=== PATIENT | male | born 1950 | race Caucasian/White ===

== ENCOUNTER 2019-06-21 18:18 | Inpatient (IN) | payer MEDICARE, OTHER ==
[2019-06-21] MEDS ORDERED: Sodium Chloride 0.9% 1,000 ML IV ONE ×3 (19:44→20:36)
--- NOTE | 2019-06-21 19:57 | EDM.PDOC ---
ED HPI GENERAL MEDICAL PROBLEM - General Chief Complaint: Lower Extremity Injury/Pain Stated Complaint: LEFT LEG PAIN Time Seen by Provider: 06/21/19 19:30 Source of Information: Reports: Patient History Limitations: Reports: No Limitations - History of Present Illness INITIAL COMMENTS - FREE TEXT/NARRATIVE: Patient is a 69-year-old male with past medical history of obesity and diabetes presenting with chief complaint of left lower extremity pain and redness. Patient notes that he started noticing the redness and pain to the left lateral thigh 2 days ago. Patient states that it feels like a soreness. Patient states he took off his compression stockings today and noticed over the span of several hours redness started spreading to the distal part of his extremity as well. Patient denies feeling fevers, chills, fatigue, nausea, vomiting. Patient reports blood sugar being under control at home. Pmhx: Noted in the HPI in chart. Pshx: None Family Hx: noncontributory Smoking history? no Etoh use? none Drug use? none In addition to that documented in the HPI above, the additional ROS was obtained : Constitutional: Denies fevers or chills Eyes: Denies vision changes ENMT: Denies sore throat CV: Denies chest pain Resp: Denies SOB GI: Denies vomiting or diarrhea : Denies painful urination MSK: Denies recent trauma Skin: Per HPI Neuro: Denies new numbness or tingling or weakness Endocrine: Denies unexpected weight loss Heme: Denies bleeding disorders I have reviewed the triage vital signs Const: Well nourished, well developed, appears stated age Eyes: PERRL, no conjunctival injection HENT: NCAT, Neck supple without meningismus CV: RRR, Warm, well-perfused extremities RESP: CTAB, Unlabored respiratory effort GI: soft, non-tender, non-distended, no masses MSK: No gross deformities appreciated Skin: Patient demonstrates warmth, erythema to the lateral left thigh extending down to the knee. Patient has circumferential warmth and erythema to the distal lower extremity. No evidence of crepitus or fluctuance. Neuro: Alert, director of hemophilia II-XII grossly intact. Sensation and motor function of extremities grossly intact. Patient is motor intact. Psych: Appropriate mood and affect Assessment and plan: Patient is 69-year-old male presenting with left lower extremity redness and pain. Patient is clinical evidence of a cellulitis which is quite extensive however does not appear to involve the groin region. Patient's labs were significant for concerns about possible sepsis. Sepsis protocol was followed with 30 cc/kg. Sepsis reevaluation demonstrates improvement of tachycardia. Repeat lactic acid was downtrending to 2.1. Patient started on broad-spectrum antibiotics. Patient's labs also noted for kidney dysfunction whether this is acute or chronic is unclear at this time and he will require further trending. CT scan was performed to rule out any evidence of necrotizing fasciitis given the extent of the cellulitis. Patient's CT scan was negative for necrotizing fasciitis but demonstrated acute extensive cellulitis. Given the patient's age , concerns about sepsis and risk factors the patient be placed in observation for further evaluation and IV antibiotics. These infections particularly in diabetics can progress to necrotizing fasciitis and this patient will require close observation to make sure that this is not the case. Left Leg Pain Score (Numeric/FACES): 5 - Related Data Allergies Allergy/AdvReac Type Severity Reaction Status Date / Time No Known Allergies Allergy Verified 06/21/19 19:22 Past Medical History Cardiovascular History: Reports: High Cholesterol, Hypertension Endocrine/Metabolic History: Reports: Diabetes, Type II Oncologic (Cancer) History: Reports: Basal Cell Carcinoma Other Oncologic History: Removal on left side of face a couple weeks ago. - Infectious Disease History Infectious Disease History: Reports: Measles, Mumps, Shingles - Past Surgical History HEENT Surgical History: Reports: Eye Surgery Other HEENT Surgeries/Procedures: Right removal of eye, has glass eye. Social & Family History - Tobacco Use Smoking Status *Q: Never Smoker - Caffeine Use Caffeine Use: Reports: Coffee - Recreational Drug Use Recreational Drug Use: No Review of Systems - Review of Systems Review Of Systems: See Below ED EXAM, GENERAL - Physical Exam Exam: See Below Course - Vital Signs Last Recorded V/S: Last Vital Signs Temp 36.9 C 06/21/19 22:02 Pulse 84 06/21/19 23:29 Resp 18 06/21/19 23:29 BP 129/59 L 06/21/19 23:29 Pulse Ox 95 06/21/19 23:29 - Orders/Labs/Meds Orders: Active Orders 24 hr Category Date Time Status POC Glucose [Blood Glucose Check, Bedside] [RC] ONETIME Care 06/21/19 19:53 Active CULTURE BLOOD [BC] Stat Lab 06/21/19 20:00 Received CULTURE BLOOD [BC] Stat Lab 06/21/19 20:25 Received Blood Culture x2 Reflex Set [OM.PC] Stat Oth 06/21/19 19:45 Ordered Labs: Laboratory Tests 06/21/19 06/21/19 06/21/19 Range/Units 20:00 20:00 20:00 WBC 14.97 H (4.0-11.0) K/uL RBC 5.19 (4.50-5.90) M/uL Hgb 13.3 (13.0-17.0) g/dL Hct 42.5 (38.0-50.0) % MCV 81.9 (80.0-98.0) fL MCH 25.6 L (27.0-32.0) pg MCHC 31.3 (31.0-37.0) g/dL RDW Std Deviation 51.1 (28.0-62.0) fl RDW Coeff of Letty 17 H (11.0-15.0) % Plt Count 229 (150-400) K/uL MPV 9.30 (7.40-12.00) fL Neut % (Auto) 88.0 H (48.0-80.0) % Lymph % (Auto) 4.9 L (16.0-40.0) % [place] % (Auto) 6.9 (0.0-15.0) % Eos % (Auto) 0.0 (0.0-7.0) % Baso % (Auto) 0.2 (0.0-1.5) % Neut # (Auto) 13.2 H (1.4-5.7) K/uL Lymph # (Auto) 0.7 (0.6-2.4) K/uL [place] # (Auto) 1.0 H (0.0-0.8) K/uL Eos # (Auto) 0.0 (0.0-0.7) K/uL Baso # (Auto) 0.0 (0.0-0.1) K/uL Nucleated RBC % 0.0 /100WBC Nucleated RBCs # 0 K/uL ESR (0-19) mm/hr VBG pH 7.41 (7.31-7.41) VBG pCO2 45 (35-45) mmHG VBG pO2 29 L (30-40) mmHG VBG HCO3 28 (22-30) mEq/L VBG Total CO2 26 L (41-51) mmol/L VBG Base Excess 3.0 (-3.0-3.0) Lactate 2.6 H* (0.20-2.00) mmol/L Sodium (136-148) mmol/L Potassium (3.5-5.1) mmol/L Chloride (98-107) mmol/L Carbon Dioxide (21.0-32.0) mmol/L BUN (7.0-18.0) mg/dL Creatinine (0.8-1.3) mg/dL Est Cr Clr Drug Dosing mL/min Estimated GFR (MDRD) ml/min Glucose (74-106) mg/dL POC Glucose (60-110) mg/dL Calcium (8.5-10.1) mg/dL Total Bilirubin (0.2-1.0) mg/dL AST (15-37) IU/L ALT (14-63) IU/L Alkaline Phosphatase (46-116) U/L C-Reactive Protein (0.00-0.90) mg/dL Total Protein (6.4-8.2) g/dL Albumin (3.4-5.0) g/dL Globulin (2.6-4.0) g/dL Albumin/Globulin Ratio (0.9-1.6) 06/21/19 06/21/19 06/21/19 Range/Units 20:00 20:00 20:00 WBC (4.0-11.0) K/uL RBC (4.50-5.90) M/uL Hgb (13.0-17.0) g/dL Hct (38.0-50.0) % MCV (80.0-98.0) fL MCH (27.0-32.0) pg MCHC (31.0-37.0) g/dL RDW Std Deviation (28.0-62.0) fl RDW Coeff of Letty (11.0-15.0) % Plt Count (150-400) K/uL MPV (7.40-12.00) fL Neut % (Auto) (48.0-80.0) % Lymph % (Auto) (16.0-40.0) % [place] % (Auto) (0.0-15.0) % Eos % (Auto) (0.0-7.0) % Baso % (Auto) (0.0-1.5) % Neut # (Auto) (1.4-5.7) K/uL Lymph # (Auto) (0.6-2.4) K/uL [place] # (Auto) (0.0-0.8) K/uL Eos # (Auto) (0.0-0.7) K/uL Baso # (Auto) (0.0-0.1) K/uL Nucleated RBC % /100WBC Nucleated RBCs # K/uL ESR 52 H (0-19) mm/hr VBG pH (7.31-7.41) VBG pCO2 (35-45) mmHG VBG pO2 (30-40) mmHG VBG HCO3 (22-30) mEq/L VBG Total CO2 (41-51) mmol/L VBG Base Excess (-3.0-3.0) Lactate (0.20-2.00) mmol/L Sodium 138 (136-148) mmol/L Potassium 4.5 (3.5-5.1) mmol/L Chloride 101 (98-107) mmol/L Carbon Dioxide 26.7 (21.0-32.0) mmol/L BUN 39 H (7.0-18.0) mg/dL Creatinine 1.8 H (0.8-1.3) mg/dL Est Cr Clr Drug Dosing 37.64 mL/min Estimated GFR (MDRD) 37.4 ml/min Glucose 158 H (74-106) mg/dL POC Glucose (60-110) mg/dL Calcium 9.3 (8.5-10.1) mg/dL Total Bilirubin 0.9 (0.2-1.0) mg/dL AST 19 (15-37) IU/L ALT 30 (14-63) IU/L Alkaline Phosphatase 89 (46-116) U/L C-Reactive Protein 43.20 H (0.00-0.90) mg/dL Total Protein 7.2 (6.4-8.2) g/dL Albumin 2.8 L (3.4-5.0) g/dL Globulin 4.4 H (2.6-4.0) g/dL Albumin/Globulin Ratio 0.6 L (0.9-1.6) 06/21/19 06/21/19 Range/Units 20:14 22:48 WBC (4.0-11.0) K/uL RBC (4.50-5.90) M/uL Hgb (13.0-17.0) g/dL Hct (38.0-50.0) % MCV (80.0-98.0) fL MCH (27.0-32.0) pg MCHC (31.0-37.0) g/dL RDW Std Deviation (28.0-62.0) fl RDW Coeff of Letty (11.0-15.0) % Plt Count (150-400) K/uL MPV (7.40-12.00) fL Neut % (Auto) (48.0-80.0) % Lymph % (Auto) (16.0-40.0) % [place] % (Auto) (0.0-15.0) % Eos % (Auto) (0.0-7.0) % Baso % (Auto) (0.0-1.5) % Neut # (Auto) (1.4-5.7) K/uL Lymph # (Auto) (0.6-2.4) K/uL [place] # (Auto) (0.0-0.8) K/uL Eos # (Auto) (0.0-0.7) K/uL Baso # (Auto) (0.0-0.1) K/uL Nucleated RBC % /100WBC Nucleated RBCs # K/uL ESR (0-19) mm/hr VBG pH (7.31-7.41) VBG pCO2 (35-45) mmHG VBG pO2 (30-40) mmHG VBG HCO3 (22-30) mEq/L VBG Total CO2 (41-51) mmol/L VBG Base Excess (-3.0-3.0) Lactate 2.1 H* (0.20-2.00) mmol/L Sodium (136-148) mmol/L Potassium (3.5-5.1) mmol/L Chloride (98-107) mmol/L Carbon Dioxide (21.0-32.0) mmol/L BUN (7.0-18.0) mg/dL Creatinine (0.8-1.3) mg/dL Est Cr Clr Drug Dosing mL/min Estimated GFR (MDRD) ml/min Glucose (74-106) mg/dL POC Glucose 168 H (60-110) mg/dL Calcium (8.5-10.1) mg/dL Total Bilirubin (0.2-1.0) mg/dL AST (15-37) IU/L ALT (14-63) IU/L Alkaline Phosphatase (46-116) U/L C-Reactive Protein (0.00-0.90) mg/dL Total Protein (6.4-8.2) g/dL Albumin (3.4-5.0) g/dL Globulin (2.6-4.0) g/dL Albumin/Globulin Ratio (0.9-1.6) Meds: Medications Discontinued Medications Generic Name Dose Route Start Last Admin Trade Name Freq PRN Reason Stop Dose Admin Sodium Chloride 1,000 mls @ 1,000 mls/hr 06/21/19 19:44 06/21/19 20:10 Normal Saline IV 06/21/19 20:43 1,000 mls/hr .Bolus ONE Administration Piperacillin Sod/Tazobactam 100 mls @ 100 mls/hr 06/21/19 20:34 06/21/19 20: 46 Sod 4.5 gm/ Sodium Chloride IV 06/21/19 21:33 100 mls/hr ONETIME ONE Administration Sodium Chloride 1,000 mls @ 1,000 mls/hr 06/21/19 20:35 06/21/19 20:54 Normal Saline IV 06/21/19 21:34 1,000 mls/hr .Bolus ONE Administration Sodium Chloride 1,000 mls @ 1,000 mls/hr 06/21/19 20:36 06/21/19 22:07 Normal Saline IV 06/21/19 21:35 1,000 mls/hr .Bolus ONE Administration Vancomycin HCl 1.25 gm/ Sodium 250 mls @ 167 mls/hr 06/21/19 22:40 06/21/19 23:31 Chloride IV 06/22/19 00:09 167 mls/hr ONETIME ONE Administration Departure - Departure Time of Disposition: 00:22 Disposition: Refer to Observation Clinical Impression: Cellulitis and abscess of left leg - Discharge Information Sepsis Event Note - Evaluation Sepsis Screening Result: No Definite Risk - Focused Exam Vital Signs: Vital Signs Temp Pulse Resp BP Pulse Ox 06/21/19 23:29 84 18 129/59 L 95 06/21/19 22:02 36.9 C 92 18 120/50 L 94 L 06/21/19 20:54 93 16 125/44 L 95 06/21/19 19:23 36.6 C 108 H 16 100/56 L 92 L Date Exam was Performed: 06/22/19 Time Exam was Performed: 00:21 - My Orders Last 24 Hours: My Active Orders 06/21/19 19:45 Blood Culture x2 Reflex Set [OM.PC] Stat 06/21/19 19:53 POC Glucose [Blood Glucose Check, Bedside] [RC] ONETIME 06/21/19 20:00 CULTURE BLOOD [BC] Stat 06/21/19 20:25 CULTURE BLOOD [BC] Stat - Assessment/Plan Last 24 Hours: My Active Orders 06/21/19 19:45 Blood Culture x2 Reflex Set [OM.PC] Stat 06/21/19 19:53 POC Glucose [Blood Glucose Check, Bedside] [RC] ONETIME 06/21/19 20:00 CULTURE BLOOD [BC] Stat 06/21/19 20:25 CULTURE BLOOD [BC] Stat
[2019-06-21] MEDS ORDERED: Piperacillin/Tazobactam 4.5 GM in Sodium Chloride 0.9% 100 ML IV ONE (20:34)
[2019-06-21 20:48] LABS: CARBON DIOXIDE,CO2 26.7 mmol/L (21.0-32.0); POTASSIUM,K 4.5 mmol/L (3.5-5.1)
--- NOTE | 2019-06-21 23:31 | CT ---
HISTORY: Pain swelling and redness. TECHNIQUE: CT left leg without contrast. [id number] from iliac crests through the feet. COMPARISON: None. FINDINGS: Moderate infiltration of subcutaneous fat in the proximal lower leg. No fluid collection within the limits of noncontrast CT. Mild signal T is fat infiltration in the left thigh and elsewhere in the lower leg. No soft tissue gas. No fluid in the deep fascial planes. Mild fatty infiltration of portions of the left leg musculature. Mild atherosclerotic calcifications. Advanced osteoarthritis of the left knee. No left knee joint effusion. Mild osteoarthritis of the left hip. Pubic symphysis degenerative changes. Degenerative changes of the lower lumbar spine and sacroiliac joints. No fracture. No erosions. Mild subcutaneous fat infiltration in the right lower leg. Osteoarthritis of the right knee. IMPRESSION: 1. Subcutaneous fat infiltration in the left lower extremity, greatest in the proximal lower leg, may be from edema or cellulitis. No fluid collection within the limits of noncontrast CT. 2. No soft tissue gas. 3. No erosions or other acute bony abnormality. 4. Osteoarthritis of the left knee and left hip. Please note that all CT scans at this facility use dose modulation, iterative reconstruction, and/or weight-based dosing when appropriate to reduce radiation dose to as low as reasonably achievable. Dictated by Qasim Mensah MD @ Jun 23 2019 8:32AM Signed by Dr. Qasim Mensah @ Jun 23 2019 8:38AM
[2019-06-22] MEDS: Insulin Aspart 100 Units/ML 3 ML Pen SUBCUT SCH ×3 (07:30→16:35)
[2019-06-22] MEDS ORDERED: atorvaSTATin 20 MG Tab PO SCH ×2 (09:00)
--- NOTE | 2019-06-22 09:03 | PCM.HP.2 ---
H&P History of Present Illness - General Date of Service: 06/22/19 Admit Problem/Dx: Admission Diagnosis/Problem Admission Diagnosis/Problem Cellulitis of left lower leg - History of Present Illness Initial Comments - Free Text/Narative: 69 yo male with pmh of DM, HTN, and obesity who presents with two day history of redness and swelling of the left lower leg. He stated he noticed it after he bumped his hip and noticed it was starting to get tight. The redness has now spread down to his calf. He denies any pain, shortness of breath, or fevers. In the ED he had a CT scan of the leg which noted subcutaneous soft tissue edema but no deep tissue involvement. WBC was 14,900 and CReatinine was 1.8. PAtient does not know what his baseline creatinine was but was told once it was iffy once but fine on recheck. Left Leg Pain Score (Numeric/FACES): 0 - Related Data Allergies/Adverse Reactions: Allergies Allergy/AdvReac Type Severity Reaction Status Date / Time No Known Allergies Allergy Verified 06/22/19 06:25 Home Medications: Home Meds Ferrous Sulfate 325 mg PO DAILY 06/22/19 [History] Lisinopril/Hydrochlorothiazide [Lisinopril-Hctz 20-25 mg Tab] 20 - 25 mg PO DAILY 06/22/19 [History] Naproxen Sodium 220 mg PO Q8HR PRN 06/22/19 [History] Saw/Py/Net/Pumpk/Beta/Ly/Zn/Cu [Prostate Control Softgel] 1 cap PO DAILY [History] atorvaSTATin [Lipitor] 20 mg PO DAILY 06/22/19 [History] metFORMIN [Glucophage] 1,000 mg PO BIDMEALS 06/22/19 [History] Past Medical History Cardiovascular History: Reports: High Cholesterol, Hypertension Endocrine/Metabolic History: Reports: Diabetes, Type II Oncologic (Cancer) History: Reports: Basal Cell Carcinoma Other Oncologic History: Removal on left side of face a couple weeks ago. - Infectious Disease History Infectious Disease History: Reports: Measles, Mumps, Shingles - Past Surgical History HEENT Surgical History: Reports: Eye Surgery Other HEENT Surgeries/Procedures: Right removal of eye, has glass eye. Social & Family History - Tobacco Use Smoking Status *Q: Never Smoker - Caffeine Use Caffeine Use: Reports: Coffee - Recreational Drug Use Recreational Drug Use: No H&P Review of Systems - Review of Systems: Review Of Systems: Comprehensive ROS is negative, except as noted in HPI. Exam - Exam Exam: See Below - Vital Signs Vital Signs: Last Vital Signs Temp 37.8 C 06/22/19 04:01 Pulse 90 06/22/19 04:01 Resp 18 06/22/19 04:01 BP 119/56 L 06/22/19 04:01 Pulse Ox 94 L 06/22/19 04:01 Weight: 147.735 kg - Exam General: Alert, Oriented HEENT: Mucosa Moist & [place]ck: Supple, Trachea Midline Lungs: Clear to Auscultation, Normal Respiratory Effort Cardiovascular: Regular Rate, Regular Rhythm GI/Abdominal Exam: Soft, Non-Tender, No Distention Extremities: Other (mild edema of left lower leg extending to mid thigh. Mild Erythema of lateral upper thigh extending circumfrential around the leg down to calf. Erythema spares patelar area, no noticable knee effusion ) - Patient Data Lab Results Last 24 hrs: Laboratory Results - last 24 hr 06/21/19 06/21/19 06/21/19 Range/Units 20:00 20:00 20:00 WBC 14.97 H (4.0-11.0) K/uL RBC 5.19 (4.50-5.90) M/uL Hgb 13.3 (13.0-17.0) g/dL Hct 42.5 (38.0-50.0) % MCV 81.9 (80.0-98.0) fL MCH 25.6 L (27.0-32.0) pg MCHC 31.3 (31.0-37.0) g/dL RDW Std Deviation 51.1 (28.0-62.0) fl RDW Coeff of Letty 17 H (11.0-15.0) % Plt Count 229 (150-400) K/uL MPV 9.30 (7.40-12.00) fL Neut % (Auto) 88.0 H (48.0-80.0) % Lymph % (Auto) 4.9 L (16.0-40.0) % Wallace % (Auto) 6.9 (0.0-15.0) % Eos % (Auto) 0.0 (0.0-7.0) % Baso % (Auto) 0.2 (0.0-1.5) % Neut # (Auto) 13.2 H (1.4-5.7) K/uL Lymph # (Auto) 0.7 (0.6-2.4) K/uL Wallace # (Auto) 1.0 H (0.0-0.8) K/uL Eos # (Auto) 0.0 (0.0-0.7) K/uL Baso # (Auto) 0.0 (0.0-0.1) K/uL Nucleated RBC % 0.0 /100WBC Nucleated RBCs # 0 K/uL ESR (0-19) mm/hr VBG pH 7.41 (7.31-7.41) VBG pCO2 45 (35-45) mmHG VBG pO2 29 L (30-40) mmHG VBG HCO3 28 (22-30) mEq/L VBG Total CO2 26 L (41-51) mmol/L VBG Base Excess 3.0 (-3.0-3.0) Lactate 2.6 H* (0.20-2.00) mmol/L Sodium (136-148) mmol/L Potassium (3.5-5.1) mmol/L Chloride (98-107) mmol/L Carbon Dioxide (21.0-32.0) mmol/L BUN (7.0-18.0) mg/dL Creatinine (0.8-1.3) mg/dL Est Cr Clr Drug Dosing mL/min Estimated GFR (MDRD) ml/min Glucose (74-106) mg/dL POC Glucose (60-110) mg/dL Calcium (8.5-10.1) mg/dL Total Bilirubin (0.2-1.0) mg/dL AST (15-37) IU/L ALT (14-63) IU/L Alkaline Phosphatase (46-116) U/L C-Reactive Protein (0.00-0.90) mg/dL Total Protein (6.4-8.2) g/dL Albumin (3.4-5.0) g/dL Globulin (2.6-4.0) g/dL Albumin/Globulin Ratio (0.9-1.6) 06/21/19 06/21/19 06/21/19 Range/Units 20:00 20:00 20:00 WBC (4.0-11.0) K/uL RBC (4.50-5.90) M/uL Hgb (13.0-17.0) g/dL Hct (38.0-50.0) % MCV (80.0-98.0) fL MCH (27.0-32.0) pg MCHC (31.0-37.0) g/dL RDW Std Deviation (28.0-62.0) fl RDW Coeff of Letty (11.0-15.0) % Plt Count (150-400) K/uL MPV (7.40-12.00) fL Neut % (Auto) (48.0-80.0) % Lymph % (Auto) (16.0-40.0) % Wallace % (Auto) (0.0-15.0) % Eos % (Auto) (0.0-7.0) % Baso % (Auto) (0.0-1.5) % Neut # (Auto) (1.4-5.7) K/uL Lymph # (Auto) (0.6-2.4) K/uL Wallace # (Auto) (0.0-0.8) K/uL Eos # (Auto) (0.0-0.7) K/uL Baso # (Auto) (0.0-0.1) K/uL Nucleated RBC % /100WBC Nucleated RBCs # K/uL ESR 52 H (0-19) mm/hr VBG pH (7.31-7.41) VBG pCO2 (35-45) mmHG VBG pO2 (30-40) mmHG VBG HCO3 (22-30) mEq/L VBG Total CO2 (41-51) mmol/L VBG Base Excess (-3.0-3.0) Lactate (0.20-2.00) mmol/L Sodium 138 (136-148) mmol/L Potassium 4.5 (3.5-5.1) mmol/L Chloride 101 (98-107) mmol/L Carbon Dioxide 26.7 (21.0-32.0) mmol/L BUN 39 H (7.0-18.0) mg/dL Creatinine 1.8 H (0.8-1.3) mg/dL Est Cr Clr Drug Dosing 37.64 mL/min Estimated GFR (MDRD) 37.4 ml/min Glucose 158 H (74-106) mg/dL POC Glucose (60-110) mg/dL Calcium 9.3 (8.5-10.1) mg/dL Total Bilirubin 0.9 (0.2-1.0) mg/dL AST 19 (15-37) IU/L ALT 30 (14-63) IU/L Alkaline Phosphatase 89 (46-116) U/L C-Reactive Protein 43.20 H (0.00-0.90) mg/dL Total Protein 7.2 (6.4-8.2) g/dL Albumin 2.8 L (3.4-5.0) g/dL Globulin 4.4 H (2.6-4.0) g/dL Albumin/Globulin Ratio 0.6 L (0.9-1.6) 06/21/19 06/21/19 06/22/19 Range/Units 20:14 22:48 04:53 WBC (4.0-11.0) K/uL RBC (4.50-5.90) M/uL Hgb (13.0-17.0) g/dL Hct (38.0-50.0) % MCV (80.0-98.0) fL MCH (27.0-32.0) pg MCHC (31.0-37.0) g/dL RDW Std Deviation (28.0-62.0) fl RDW Coeff of Letty (11.0-15.0) % Plt Count (150-400) K/uL MPV (7.40-12.00) fL Neut % (Auto) (48.0-80.0) % Lymph % (Auto) (16.0-40.0) % Wallace % (Auto) (0.0-15.0) % Eos % (Auto) (0.0-7.0) % Baso % (Auto) (0.0-1.5) % Neut # (Auto) (1.4-5.7) K/uL Lymph # (Auto) (0.6-2.4) K/uL Wallace # (Auto) (0.0-0.8) K/uL Eos # (Auto) (0.0-0.7) K/uL Baso # (Auto) (0.0-0.1) K/uL Nucleated RBC % /100WBC Nucleated RBCs # K/uL ESR (0-19) mm/hr VBG pH (7.31-7.41) VBG pCO2 (35-45) mmHG VBG pO2 (30-40) mmHG VBG HCO3 (22-30) mEq/L VBG Total CO2 (41-51) mmol/L VBG Base Excess (-3.0-3.0) Lactate 2.1 H* 1.6 (0.20-2.00) mmol/L Sodium (136-148) mmol/L Potassium (3.5-5.1) mmol/L Chloride (98-107) mmol/L Carbon Dioxide (21.0-32.0) mmol/L BUN (7.0-18.0) mg/dL Creatinine (0.8-1.3) mg/dL Est Cr Clr Drug Dosing mL/min Estimated GFR (MDRD) ml/min Glucose (74-106) mg/dL POC Glucose 168 H (60-110) mg/dL Calcium (8.5-10.1) mg/dL Total Bilirubin (0.2-1.0) mg/dL AST (15-37) IU/L ALT (14-63) IU/L Alkaline Phosphatase (46-116) U/L C-Reactive Protein (0.00-0.90) mg/dL Total Protein (6.4-8.2) g/dL Albumin (3.4-5.0) g/dL Globulin (2.6-4.0) g/dL Albumin/Globulin Ratio (0.9-1.6) 06/22/19 Range/Units 06:53 WBC (4.0-11.0) K/uL RBC (4.50-5.90) M/uL Hgb (13.0-17.0) g/dL Hct (38.0-50.0) % MCV (80.0-98.0) fL MCH (27.0-32.0) pg MCHC (31.0-37.0) g/dL RDW Std Deviation (28.0-62.0) fl RDW Coeff of Letty (11.0-15.0) % Plt Count (150-400) K/uL MPV (7.40-12.00) fL Neut % (Auto) (48.0-80.0) % Lymph % (Auto) (16.0-40.0) % Wallace % (Auto) (0.0-15.0) % Eos % (Auto) (0.0-7.0) % Baso % (Auto) (0.0-1.5) % Neut # (Auto) (1.4-5.7) K/uL Lymph # (Auto) (0.6-2.4) K/uL Wallace # (Auto) (0.0-0.8) K/uL Eos # (Auto) (0.0-0.7) K/uL Baso # (Auto) (0.0-0.1) K/uL Nucleated RBC % /100WBC Nucleated RBCs # K/uL ESR (0-19) mm/hr VBG pH (7.31-7.41) VBG pCO2 (35-45) mmHG VBG pO2 (30-40) mmHG VBG HCO3 (22-30) mEq/L VBG Total CO2 (41-51) mmol/L VBG Base Excess (-3.0-3.0) Lactate (0.20-2.00) mmol/L Sodium (136-148) mmol/L Potassium (3.5-5.1) mmol/L Chloride (98-107) mmol/L Carbon Dioxide (21.0-32.0) mmol/L BUN (7.0-18.0) mg/dL Creatinine (0.8-1.3) mg/dL Est Cr Clr Drug Dosing mL/min Estimated GFR (MDRD) ml/min Glucose (74-106) mg/dL POC Glucose 113 H (60-110) mg/dL Calcium (8.5-10.1) mg/dL Total Bilirubin (0.2-1.0) mg/dL AST (15-37) IU/L ALT (14-63) IU/L Alkaline Phosphatase (46-116) U/L C-Reactive Protein (0.00-0.90) mg/dL Total Protein (6.4-8.2) g/dL Albumin (3.4-5.0) g/dL Globulin (2.6-4.0) g/dL Albumin/Globulin Ratio (0.9-1.6) Result Diagrams: 06/21/19 20:00 06/21/19 20:00 Sepsis Event Note - Evaluation Sepsis Screening Result: Severe Sepsis Risk - Focused Exam Vital Signs: Vital Signs Temp Pulse Resp BP Pulse Ox 06/22/19 04:01 37.8 C 90 18 119/56 L 94 L 06/22/19 03:47 36.2 C 96 16 114/55 L 95 06/22/19 01:47 35.9 C L 98 16 111/55 L 95 06/22/19 00:55 36.6 C 92 20 123/47 L 94 L 06/21/19 23:29 84 18 129/59 L 95 06/21/19 22:02 36.9 C 92 18 120/50 L 94 L Date Exam was Performed: 06/22/19 Time Exam was Performed: 08:57 Problem List Initiated/Reviewed/Updated: Yes Orders Last 24hrs: Active Orders 24 hr Category Date Time Status Admission Status [Patient Status] [ADT] Stat ADT 06/21/19 23:58 Active Accu Check [Blood Glucose Check, Bedside] [RC] TIDAC Care 06/22/19 02:02 Active Antiembolic Devices [RC] PER UNIT ROUTINE Care 06/22/19 08:56 Ordered Oxygen Therapy [RC] PRN Care 06/22/19 08:55 Ordered POC Glucose [Blood Glucose Check, Bedside] [RC] ONETIME Care 06/21/19 19:53 Active Up ad Mulu [RC] ASDIRECTED Care 06/22/19 08:55 Ordered VTE/DVT Education [RC] PER UNIT ROUTINE Care 06/22/19 08:55 Ordered Vital Signs [RC] Q4H Care 06/22/19 08:55 Ordered ADA Diabetic [[place] [employer] Diet] [DIET Diet 06/22/19 Breakfast Active ] Venous Doppler Lwr Ext Lt [US] Routine Exams 06/22/19 08:53 Ordered BASIC METABOLIC PANEL,BMP [CHEM] AM Lab 06/23/19 05:11 Ordered CBC WITH AUTO DIFF [HEME] AM Lab 06/23/19 05:11 Ordered CULTURE BLOOD [BC] Stat Lab 06/21/19 20:00 Received CULTURE BLOOD [BC] Stat Lab 06/21/19 20:25 Received VANCOMYCIN TROUGH [CHEM] Timed Lab 06/24/19 00:30 Ordered Heparin Sodium Med 06/22/19 09:00 Ordered 5,000 units SUBCUT Q8H Insulin Aspart [NovoLOG] Med 06/22/19 07:30 Active See Protocol SUBCUT TIDAC Pharmacy to Dose - Vancomycin Med 06/22/19 02:00 Active 1 dose .XX ASDIRECTED Vancomycin 2 gm Med 06/23/19 01:00 Active Sodium Chloride 0.9% [Normal Saline] 500 ml IV Q24H atorvaSTATin [Lipitor] Med 06/22/19 09:00 Ordered 20 mg PO DAILY metFORMIN [Glucophage] Med 06/22/19 17:00 Ordered 1,000 mg PO BIDMEALS Blood Culture x2 Reflex Set [OM.PC] Stat Oth 06/21/19 19:45 Ordered Sequential Compression Device [OM.PC] Per Unit Routine Oth 06/22/19 08:56 Ordered Resuscitation Status Routine Resus Stat 06/22/19 08:55 Ordered Medication Orders Atorvastatin Calcium (Lipitor) 20 mg PO DAILY [facility] Heparin Sodium (Porcine) (Heparin Sodium) 5,000 units SUBCUT Q8H [facility] Vancomycin HCl 2 gm/ Sodium (Chloride) 500 mls @ 333.333 mls/hr IV Q24H [facility] Insulin Aspart (Novolog) 0 unit SUBCUT TIDAC [facility]; Protocol Last Admin: 06/22/19 07:30 Dose: Not Given Metformin 1000 Mg (Tab) 1 each PO BIDMEALS [facility] Vancomycin HCl (Pharmacy To Dose - Vancomycin) 1 dose .XX ASDIRECTED [facility] Assessment/Plan Comment:: 69 yo male admitted for left leg cellulitis. We will treat with vancomycin. His creatinine is elevated at 1.8 but uncertain if this acute or chronic. Will hold lisinopril and naproxen for now.
[2019-06-22] MEDS: Heparin Sodium 5,000 Units/ML Vial SUBCUT SCH ×2 (09:07→16:34)
--- NOTE | 2019-06-22 12:37 | US ---
Left lower extremity deep venous ultrasound: Duplex and color Doppler evaluation was obtained of the left common femoral, superficial femoral, popliteal and posterior tibial veins. Right common femoral vein was also evaluated. Technologist's note: Difficult to assess due to patient body habitus Normal compression and Doppler flow appears to be present. Subcutaneous edema is noted within the left lower extremity. Several lymph nodes are seen within the right groin which are most likely benign. Impression: 1. Subcutaneous edema. Lymph nodes as noted above. 2. No definite findings of venous thrombosis are seen with left lower extremity or right common femoral vein. Diagnostic code #2 This report was dictated in MDT
[2019-06-22] MEDS ORDERED: Calcium Carbonate 500 MG Tab.Chew PO PRN (23:15)
[2019-06-23] MEDS: Heparin Sodium 5,000 Units/ML Vial SUBCUT SCH ×3 (00:17→18:05)
[2019-06-23] MEDS ORDERED: Acetaminophen 325 MG Tab PO PRN (00:58)
[2019-06-23] MEDS ORDERED: Vancomycin 2 GM in Sodium Chloride 0.9% 500 ML IV SCH (01:00)
[2019-06-23 06:45] LABS: CARBON DIOXIDE,CO2 27.6 mmol/L (21.0-32.0); POTASSIUM,K 4.5 mmol/L (3.5-5.1)
[2019-06-23] MEDS: Insulin Aspart 100 Units/ML 3 ML Pen SUBCUT SCH ×3 (06:54→18:08)
[2019-06-23] MEDS ORDERED: Alum Hydrox/Mag Hydrox/Simeth 15 ML, Lidocaine 2% 5 ML PO ONE ×2 (08:30)
[2019-06-23] MEDS: atorvaSTATin 20 MG Tab PO SCH (09:33)
--- NOTE | 2019-06-23 10:09 | PCM.PN ---
- General Info Date of Service: 06/23/19 Admission Dx/Problem (Free Text): Admission Diagnosis/Problem Admission Diagnosis/Problem Cellulitis of left lower leg Subjective Update: Reports some chest pain, burning and straight through to shoulder blades, sharp in nature. Reports it started last night, but worsened this morning. Kind of feels like the heartburn he gets intermittently. No dyspnea, no palpitations. No diaphoresis. Reports leg is doing better, feels the redness is improved slightly. Pain is ok. No other complaints this morning. Functional Status: Reports: Pain Controlled, Tolerating Diet, Ambulating, Urinating - Review of Systems General: Reports: No Symptoms. Denies: Weakness, Fatigue HEENT: Reports: No Symptoms. Denies: Headaches, Visual Changes Pulmonary: Reports: No Symptoms. Denies: Shortness of Breath, Cough, Hemoptysis , Wheezing Cardiovascular: Reports: Chest Pain, Edema Gastrointestinal: Reports: No Symptoms. Denies: Abdominal Pain, Nausea, Vomiting Genitourinary: Reports: No Symptoms. Denies: Dysuria, Frequency Neurological: Reports: No Symptoms Psychiatric: Reports: No Symptoms - Patient Data Vitals - Most Recent: Last Vital Signs Temp 97.8 F 06/23/19 04:00 Pulse 76 06/23/19 04:00 Resp 20 06/23/19 04:00 BP 127/60 06/23/19 04:00 Pulse Ox 94 L 06/23/19 04:00 Weight - Most Recent: 147.735 kg I&O - Last 24 Hours: Intake & Output 06/22/19 06/23/19 06/23/19 22:59 06:59 14:59 Intake Total 1200 600 Output Total 800 700 Balance 400 -100 Lab Results Last 24 Hours: Laboratory Results - last 24 hr 06/22/19 06/22/19 06/23/19 Range/Units 11:38 16:15 06:05 WBC 12.42 H (4.0-11.0) K/uL RBC 4.52 (4.50-5.90) M/uL Hgb 11.5 L (13.0-17.0) g/dL Hct 37.4 L (38.0-50.0) % MCV 82.7 (80.0-98.0) fL MCH 25.4 L (27.0-32.0) pg MCHC 30.7 L (31.0-37.0) g/dL RDW Std Deviation 51.7 (28.0-62.0) fl RDW Coeff of Letty 17 H (11.0-15.0) % Plt Count 238 (150-400) K/uL MPV 9.10 (7.40-12.00) fL Neut % (Auto) 87.2 H (48.0-80.0) % Lymph % (Auto) 5.2 L (16.0-40.0) % Heard % (Auto) 7.2 (0.0-15.0) % Eos % (Auto) 0.2 (0.0-7.0) % Baso % (Auto) 0.2 (0.0-1.5) % Neut # (Auto) 10.8 H (1.4-5.7) K/uL Lymph # (Auto) 0.6 (0.6-2.4) K/uL Heard # (Auto) 0.9 H (0.0-0.8) K/uL Eos # (Auto) 0.0 (0.0-0.7) K/uL Baso # (Auto) 0.0 (0.0-0.1) K/uL Nucleated RBC % 0.0 /100WBC Nucleated RBCs # 0 K/uL Sodium (136-148) mmol/L Potassium (3.5-5.1) mmol/L Chloride (98-107) mmol/L Carbon Dioxide (21.0-32.0) mmol/L BUN (7.0-18.0) mg/dL Creatinine (0.8-1.3) mg/dL Est Cr Clr Drug Dosing mL/min Estimated GFR (MDRD) ml/min Glucose (74-106) mg/dL POC Glucose 132 H 121 H (60-110) mg/dL Calcium (8.5-10.1) mg/dL Troponin I (0.000-0.056) ng/mL 06/23/19 06/23/19 Range/Units 06:05 07:48 WBC (4.0-11.0) K/uL RBC (4.50-5.90) M/uL Hgb (13.0-17.0) g/dL Hct (38.0-50.0) % MCV (80.0-98.0) fL MCH (27.0-32.0) pg MCHC (31.0-37.0) g/dL RDW Std Deviation (28.0-62.0) fl RDW Coeff of Letty (11.0-15.0) % Plt Count (150-400) K/uL MPV (7.40-12.00) fL Neut % (Auto) (48.0-80.0) % Lymph % (Auto) (16.0-40.0) % Heard % (Auto) (0.0-15.0) % Eos % (Auto) (0.0-7.0) % Baso % (Auto) (0.0-1.5) % Neut # (Auto) (1.4-5.7) K/uL Lymph # (Auto) (0.6-2.4) K/uL Heard # (Auto) (0.0-0.8) K/uL Eos # (Auto) (0.0-0.7) K/uL Baso # (Auto) (0.0-0.1) K/uL Nucleated RBC % /100WBC Nucleated RBCs # K/uL Sodium 139 (136-148) mmol/L Potassium 4.5 (3.5-5.1) mmol/L Chloride 103 (98-107) mmol/L Carbon Dioxide 27.6 (21.0-32.0) mmol/L BUN 31 H (7.0-18.0) mg/dL Creatinine 1.2 (0.8-1.3) mg/dL Est Cr Clr Drug Dosing 56.46 mL/min Estimated GFR (MDRD) 59.7 ml/min Glucose 154 H (74-106) mg/dL POC Glucose (60-110) mg/dL Calcium 8.7 (8.5-10.1) mg/dL Troponin I < 0.050 (0.000-0.056) ng/mL Can Results Last 24 Hours: Microbiology 06/21/19 20:00 Aerobic Blood Culture - Preliminary Blood - Venous Anaerobic Blood Culture - Preliminary 06/21/19 20:25 Aerobic Blood Culture - Preliminary Blood - Venous - Lab Draw NO GROWTH AFTER 1 DAY Anaerobic Blood Culture - Preliminary NO GROWTH AFTER 1 DAY Med Orders - Current: Current Medications Acetaminophen (Tylenol) 650 mg PO Q6H PRN PRN Reason: Pain Last Admin: 06/23/19 01:09 Dose: 650 mg Atorvastatin Calcium (Lipitor) 20 mg PO DAILY [facility] Last Admin: 06/23/19 09:33 Dose: 20 mg Calcium Carbonate/Glycine (Tums) 500 mg PO TID PRN PRN Reason: Indigestion Last Admin: 06/22/19 23:42 Dose: 500 mg Heparin Sodium (Porcine) (Heparin Sodium) 5,000 units SUBCUT Q8H [facility] Last Admin: 06/23/19 09:29 Dose: 5,000 units Vancomycin HCl 2 gm/ Sodium (Chloride) 500 mls @ 333.333 mls/hr IV Q12H [facility] Insulin Aspart (Novolog) 0 unit SUBCUT TIDAC [facility]; Protocol Last Admin: 06/23/19 06:54 Dose: Not Given Metformin HCl (Glucophage) 1,000 mg PO BIDMEALS [facility] Last Admin: 06/23/19 09:27 Dose: 1,000 mg Vancomycin HCl (Pharmacy To Dose - Vancomycin) 1 dose .XX ASDIRECTED [facility] Discontinued Medications Atorvastatin Calcium (Lipitor) 20 mg PO DAILY [facility] Al Hydroxide/Mg Hydroxide 15 (ml/ Lidocaine HCl 5 ml) 0 ml PO ONETIME ONE Stop: 06/23/19 08:31 Last Admin: 06/23/19 09:28 Dose: 1 each Sodium Chloride (Normal Saline) 1,000 mls @ 1,000 mls/hr IV .Bolus ONE Stop: 06/21/19 20:43 Last Admin: 06/21/19 20:10 Dose: 1,000 mls/hr Piperacillin Sod/Tazobactam (Sod 4.5 gm/ Sodium Chloride) 100 mls @ 100 mls/hr IV ONETIME ONE Stop: 06/21/19 21:33 Last Admin: 06/21/19 20:46 Dose: 100 mls/hr Sodium Chloride (Normal Saline) 1,000 mls @ 1,000 mls/hr IV .Bolus ONE Stop: 06/21/19 21:34 Last Admin: 06/21/19 20:54 Dose: 1,000 mls/hr Sodium Chloride (Normal Saline) 1,000 mls @ 1,000 mls/hr IV .Bolus ONE Stop: 06/21/19 21:35 Last Admin: 06/21/19 22:07 Dose: 1,000 mls/hr Vancomycin HCl 1.25 gm/ Sodium (Chloride) 250 mls @ 167 mls/hr IV ONETIME ONE Stop: 06/22/19 00:09 Last Admin: 06/21/19 23:31 Dose: 167 mls/hr Vancomycin HCl 0.75 gm/ Sodium (Chloride) 250 mls @ 166.667 mls/hr IV ONETIME ONE Stop: 06/22/19 03:59 Last Admin: 06/22/19 03:44 Dose: 166.667 mls/hr Vancomycin HCl 2 gm/ Sodium (Chloride) 500 mls @ 333.333 mls/hr IV Q24H [facility] Last Admin: 06/23/19 00:17 Dose: 333.333 mls/hr Metformin 1000 Mg (Tab) 1 each PO BIDMEALS [facility] Last Admin: 06/23/19 09:43 Dose: Not Given Atorvastatin 20 Mg (Tab) 1 each PO DAILY [facility] Last Admin: 06/22/19 09:06 Dose: 1 each - Exam Quality Assessment: DVT Prophylaxis. No: Supplemental Oxygen General: Alert, Oriented, Cooperative Neck: Supple Lungs: Clear to Auscultation, Normal Respiratory Effort Cardiovascular: Regular Rate, Regular Rhythm GI/Abdominal Exam: Normal Bowel Sounds, Soft, Non-Tender, Other (obese abdomen) Extremities: Normal Inspection, Normal Range of Motion, Pedal Edema (+ 1 to 2 non pitting to L lower extremity) Wound/Incisions: Healing Well, Erythema Improving (some seeping noted to anterior johnson) Neurological: No New Focal Deficit Psy/Mental Status: Alert, Normal Affect, Normal Mood Sepsis Event Note - Evaluation Sepsis Screening Result: No Definite Risk - Focused Exam Vital Signs: Vital Signs Temp Pulse Resp BP Pulse Ox 06/23/19 04:00 97.8 F 76 20 127/60 94 L 06/23/19 00:41 99.6 F 92 18 125/61 96 Date Exam was Performed: 06/23/19 Time Exam was Performed: 11:17 - Problem List & Annotations (1) Cellulitis SNOMED Code(s): 227711517 Code(s): L03.90 - CELLULITIS, UNSPECIFIED Status: Acute Current Visit: Yes Qualifiers: Site of cellulitis: extremity Site of cellulitis of extremity: lower extremity Laterality: left Qualified Code(s): L03.116 - Cellulitis of left lower limb (2) Chest pain SNOMED Code(s): 47913081 Code(s): R07.9 - CHEST PAIN, UNSPECIFIED Status: Acute Current Visit: Yes (3) HTN (hypertension) SNOMED Code(s): 98089177 Code(s): I10 - ESSENTIAL (PRIMARY) HYPERTENSION Status: Chronic Current Visit: Yes (4) HLD (hyperlipidemia) SNOMED Code(s): 63531284 Code(s): E78.5 - HYPERLIPIDEMIA, UNSPECIFIED Status: Chronic Current Visit: Yes (5) DM type 2 (diabetes mellitus, type 2) SNOMED Code(s): 19093739 Code(s): E11.9 - TYPE 2 DIABETES MELLITUS WITHOUT COMPLICATIONS Status: Chronic Current Visit: Yes Qualifiers: Diabetes mellitus recreation attendant insulin use: without skilled nursing use Diabetes mellitus complication status: with skin complications Diabetes mellitus complication detail: with other skin complication Qualified Code(s): E11.628 - Type 2 diabetes mellitus with other skin complications (6) Obesity SNOMED Code(s): 359916333, 325779861 Code(s): E66.9 - OBESITY, UNSPECIFIED Status: Chronic Current Visit: Yes - Problem List Review Problem List Initiated/Reviewed/Updated: Yes - Plan Plan:: 69 yo male admitted for left lower extremity cellulitis. 1. Gram positive cocci bacteremia/ L lower extremity cellulitis - Continue with Vancomycin. - Repeat BC today, and monitor CAN for first set - Elevate leg as much as possible to limit further edema 2. Chest pain: - Likely more GERD related, GI cocktail given, which improved pain. - Start Protonix daily, dose take Naproxen for pain. Consider gastritis - Will Trend troponins - Monitor on telemetry - Obtain lipids A1c 3. HTN: - Stable, hold Lisinopril due to possible KHADRA, will restart in am. 4. DM type 2: - Monitor BS TIDAC, with Novolog SSI - Metformin BID Diet: ADA Code Status: Full code VTE prophylaxis: Heparin Dispo: 2-3 days
[2019-06-23] MEDS ORDERED: Pantoprazole 40 MG in Sodium Chloride 0.9% 10 ML IV ONE ×2 (11:17→21:13)
[2019-06-23] MEDS: Vancomycin 2 GM in Sodium Chloride 0.9% 500 ML IV SCH (13:02)
--- NOTE | 2019-06-23 21:17 | PCM.SN ---
- Free Text/Narrative Note: Patient reporting sudden onset sharp abdominal pain, PAtient has RUQ tenderness on exam. We will check CT Abdomen, LFTs, amylase. morphine has been ordered.
[2019-06-23] MEDS: Morphine 2 MG/ML Syringe IVPUSH PRN (21:26)
--- NOTE | 2019-06-23 22:21 | CT ---
INDICATION: Right upper quadrant pain TECHNIQUE: CT Abdomen and pelvis without i.v. contrast. Coronal and sagittal reformats were obtained. COMPARISON: None FINDINGS: Moderate to severe degradation of image quality is present due to the patient`s inability to maintain a breath hold. Lower chest: Unremarkable. Liver: There is a low-density lesion measuring 1.5 cm within the central liver on image 32. It is incompletely assessed without intravenous contrast. Spleen: Unremarkable. Pancreas: Unremarkable. Gallbladder: Moderate gallbladder distention is present measuring 4.8 cm in diameter with the gallbladder lumen filled with hyperdense material. Mild infiltration in the adjacent fat is noted. Kidney: There is a 3.3 cm low-density lesion in the upper pole of the right kidney that is incompletely characterized without intravenous contrast. Adrenal: Unremarkable. Bowel: Moderate diverticulosis of the descending and sigmoid colon is seen. The appendix is normal in appearance and size. Vascular: Unremarkable. Lymph: Unremarkable. Peritoneum: Unremarkable. No pneumoperitoneum is seen. No significant ascites is noted. Pelvis: Unremarkable. Soft tissue: Unremarkable. Bone: Unremarkable for age. IMPRESSION: 1. Moderate gallbladder distention is present measuring 4.8 cm in diameter with the gallbladder lumen filled with hyperdense material. Mild infiltration in the adjacent fat is noted. Findings are highly suspicious for acute cholecystitis. Dictated by Lanre Hudson MD @ 06/23/2019 10:19:33 PM Please note that all CT scans at this facility use dose modulation, iterative reconstruction, and/or weight-based dosing when appropriate to reduce radiation dose to as low as reasonably achievable. Dictated by: Lanre Hudson MD @ 06/23/2019 22:19:38 (Electronically Signed)
[2019-06-23 22:44] LABS: BLOOD UREA NITROGEN,BUN 25 mg/dL (7.0-18.0); CARBON DIOXIDE,CO2 25.5 mmol/L (21.0-32.0); CHLORIDE,CL 102 mmol/L (98-107); GLUCOSE RANDOM 154 mg/dL (74-106); LIPASE 50 U/L (73-393); POTASSIUM,K 4.3 mmol/L (3.5-5.1); SODIUM,NA 138 mmol/L (136-148)
[2019-06-24] MEDS ORDERED: Piperacillin/Tazobactam 3.375 GM in Sodium Chloride 0.9% 50 ML IV SCH (01:00)
[2019-06-24] MEDS: Heparin Sodium 5,000 Units/ML Vial SUBCUT SCH ×3 (01:02→16:20)
[2019-06-24] MEDS: Vancomycin 2 GM in Sodium Chloride 0.9% 500 ML IV SCH ×2 (01:06→13:37)
[2019-06-24] MEDS: Piperacillin/Tazobactam 3.375 GM in Sodium Chloride 0.9% 50 ML IV SCH ×4 (02:48→20:02)
[2019-06-24 06:42] LABS: BLOOD UREA NITROGEN,BUN 22 mg/dL (7.0-18.0); CARBON DIOXIDE,CO2 26.6 mmol/L (21.0-32.0); CHLORIDE,CL 103 mmol/L (98-107); GLUCOSE RANDOM 159 mg/dL (74-106); POTASSIUM,K 4.5 mmol/L (3.5-5.1); SODIUM,NA 138 mmol/L (136-148)
[2019-06-24 07:17] LABS: HEMOGLOBIN A1C 6.7 % (4.5-6.2)
[2019-06-24] MEDS: Morphine 2 MG/ML Syringe IVPUSH PRN ×2 (07:22→19:06)
[2019-06-24] MEDS: Insulin Aspart 100 Units/ML 3 ML Pen SUBCUT SCH ×3 (08:13→16:19)
[2019-06-24] MEDS: Pantoprazole 40 MG Tab.CR PO SCH (08:17)
[2019-06-24] MEDS: atorvaSTATin 20 MG Tab PO SCH (08:17)
--- NOTE | 2019-06-24 09:27 | US ---
Limited abdominal ultrasound: Multiple real-time images of the upper right abdomen were obtained. Comparison: Prior noncontrast CT abdomen and pelvis study of 06/23/19. Technologist's note: Study limited due to body habitus. Liver not optimally seen. No gross abnormality is noted within the liver. Right kidney shows no hydronephrosis. Cyst is noted within the right kidney measuring about 1.7 cm in size. Single slightly prominent loop of bowel is seen within the upper right abdomen. No corresponding finding is seen on CT exam and uncertain if this has occurred in the interim from prior study or is incidental. Gallbladder is poorly seen and appears contracted. No biliary duct dilatation is seen. Pancreas is mostly obscured. Impression: 1. Details are somewhat limited due to the patient's body habitus. 2. Poorly seen gallbladder which appears to be collapsed. No biliary duct dilatation is seen. 3. Single loop of prominent bowel within the right upper abdomen. No corresponding finding is seen on the CT exam and uncertain if this has occurred in the interim or is incidental. Diagnostic code #3 This report was dictated in MDT
--- NOTE | 2019-06-24 11:28 | PCM.PN ---
- General Info Date of Service: 06/24/19 Admission Dx/Problem (Free Text): Admission Diagnosis/Problem Admission Diagnosis/Problem Cellulitis of left lower leg Subjective Update: Feeling improved today, still has pain to RUQ but its better. No chest pain today. No shortness of breath. Reports leg is feeling better. Functional Status: Reports: Pain Controlled - Review of Systems General: Reports: No Symptoms. Denies: Weakness, Fatigue HEENT: Reports: No Symptoms. Denies: Headaches, Visual Changes Pulmonary: Reports: No Symptoms. Denies: Shortness of Breath Cardiovascular: Reports: No Symptoms. Denies: Chest Pain Gastrointestinal: Reports: Abdominal Pain (RUQ), Diarrhea. Denies: Nausea, Vomiting Genitourinary: Reports: No Symptoms. Denies: Dysuria, Frequency, Burning Musculoskeletal: Reports: No Symptoms Skin: Reports: No Symptoms Neurological: Reports: No Symptoms Psychiatric: Reports: No Symptoms - Patient Data Vitals - Most Recent: Last Vital Signs Temp 97.6 F 06/24/19 07:36 Pulse 81 06/24/19 07:36 Resp 17 06/24/19 07:36 BP 128/71 06/24/19 07:36 Pulse Ox 93 L 06/24/19 07:37 Weight - Most Recent: 147.735 kg I&O - Last 24 Hours: Intake & Output 06/23/19 06/24/19 06/24/19 22:59 06:59 14:59 Intake Total 340 900 Output Total 400 575 Balance -60 325 Lab Results Last 24 Hours: Laboratory Results - last 24 hr 06/21/19 06/23/19 06/23/19 Range/Units 20:00 06:23 11:44 WBC (4.0-11.0) K/uL RBC (4.50-5.90) M/uL Hgb (13.0-17.0) g/dL Hct (38.0-50.0) % MCV (80.0-98.0) fL MCH (27.0-32.0) pg MCHC (31.0-37.0) g/dL RDW Std Deviation (28.0-62.0) fl RDW Coeff of Letty (11.0-15.0) % Plt Count (150-400) K/uL MPV (7.40-12.00) fL Neut % (Auto) (48.0-80.0) % Lymph % (Auto) (16.0-40.0) % Cloud % (Auto) (0.0-15.0) % Eos % (Auto) (0.0-7.0) % Baso % (Auto) (0.0-1.5) % Neut # (Auto) (1.4-5.7) K/uL Lymph # (Auto) (0.6-2.4) K/uL Cloud # (Auto) (0.0-0.8) K/uL Eos # (Auto) (0.0-0.7) K/uL Baso # (Auto) (0.0-0.1) K/uL Nucleated RBC % /100WBC Nucleated RBCs # K/uL ESR 52 H (0-19) mm/hr Sodium (136-148) mmol/L Potassium (3.5-5.1) mmol/L Chloride (98-107) mmol/L Carbon Dioxide (21.0-32.0) mmol/L BUN (7.0-18.0) mg/dL Creatinine (0.8-1.3) mg/dL Est Cr Clr Drug Dosing mL/min Estimated GFR (MDRD) ml/min Glucose (74-106) mg/dL POC Glucose 148 H 140 H (60-110) mg/dL Hemoglobin A1c (4.5-6.2) % Calcium (8.5-10.1) mg/dL Total Bilirubin (0.2-1.0) mg/dL AST (15-37) IU/L ALT (14-63) IU/L Alkaline Phosphatase (46-116) U/L Troponin I (0.000-0.056) ng/mL Total Protein (6.4-8.2) g/dL Albumin (3.4-5.0) g/dL Globulin (2.6-4.0) g/dL Albumin/Globulin Ratio (0.9-1.6) Triglycerides (0-200) mg/dL Cholesterol (50-200) mg/dL LDL Cholesterol, Calc (60-180) mg/dL VLDL Cholesterol (5-55) mg/dL HDL Cholesterol (40-60) mg/dL Cholesterol/HDL Ratio (3.3-6.0) Lipase (73-393) U/L 06/23/19 06/23/19 06/23/19 Range/Units 14:14 18:06 19:35 WBC (4.0-11.0) K/uL RBC (4.50-5.90) M/uL Hgb (13.0-17.0) g/dL Hct (38.0-50.0) % MCV (80.0-98.0) fL MCH (27.0-32.0) pg MCHC (31.0-37.0) g/dL RDW Std Deviation (28.0-62.0) fl RDW Coeff of Letty (11.0-15.0) % Plt Count (150-400) K/uL MPV (7.40-12.00) fL Neut % (Auto) (48.0-80.0) % Lymph % (Auto) (16.0-40.0) % Cloud % (Auto) (0.0-15.0) % Eos % (Auto) (0.0-7.0) % Baso % (Auto) (0.0-1.5) % Neut # (Auto) (1.4-5.7) K/uL Lymph # (Auto) (0.6-2.4) K/uL Cloud # (Auto) (0.0-0.8) K/uL Eos # (Auto) (0.0-0.7) K/uL Baso # (Auto) (0.0-0.1) K/uL Nucleated RBC % /100WBC Nucleated RBCs # K/uL ESR (0-19) mm/hr Sodium (136-148) mmol/L Potassium (3.5-5.1) mmol/L Chloride (98-107) mmol/L Carbon Dioxide (21.0-32.0) mmol/L BUN (7.0-18.0) mg/dL Creatinine (0.8-1.3) mg/dL Est Cr Clr Drug Dosing mL/min Estimated GFR (MDRD) ml/min Glucose (74-106) mg/dL POC Glucose 133 H (60-110) mg/dL Hemoglobin A1c (4.5-6.2) % Calcium (8.5-10.1) mg/dL Total Bilirubin (0.2-1.0) mg/dL AST (15-37) IU/L ALT (14-63) IU/L Alkaline Phosphatase (46-116) U/L Troponin I < 0.050 < 0.050 (0.000-0.056) ng/mL Total Protein (6.4-8.2) g/dL Albumin (3.4-5.0) g/dL Globulin (2.6-4.0) g/dL Albumin/Globulin Ratio (0.9-1.6) Triglycerides (0-200) mg/dL Cholesterol (50-200) mg/dL LDL Cholesterol, Calc (60-180) mg/dL VLDL Cholesterol (5-55) mg/dL HDL Cholesterol (40-60) mg/dL Cholesterol/HDL Ratio (3.3-6.0) Lipase (73-393) U/L 06/23/19 06/23/19 06/24/19 Range/Units 22:10 22:10 05:51 WBC 11.45 H 10.31 (4.0-11.0) K/uL RBC 4.78 4.71 (4.50-5.90) M/uL Hgb 12.2 L 12.0 L (13.0-17.0) g/dL Hct 38.8 38.4 (38.0-50.0) % MCV 81.2 81.5 (80.0-98.0) fL MCH 25.5 L 25.5 L (27.0-32.0) pg MCHC 31.4 31.3 (31.0-37.0) g/dL RDW Std Deviation 50.8 50.9 (28.0-62.0) fl RDW Coeff of Letty 17 H 17 H (11.0-15.0) % Plt Count 264 270 (150-400) K/uL MPV 9.20 9.30 (7.40-12.00) fL Neut % (Auto) 85.1 H 82.6 H (48.0-80.0) % Lymph % (Auto) 5.2 L 5.4 L (16.0-40.0) % Cloud % (Auto) 9.4 11.4 (0.0-15.0) % Eos % (Auto) 0.2 0.3 (0.0-7.0) % Baso % (Auto) 0.1 0.3 (0.0-1.5) % Neut # (Auto) 9.7 H 8.5 H (1.4-5.7) K/uL Lymph # (Auto) 0.6 0.6 (0.6-2.4) K/uL Cloud # (Auto) 1.1 H 1.2 H (0.0-0.8) K/uL Eos # (Auto) 0.0 0.0 (0.0-0.7) K/uL Baso # (Auto) 0.0 0.0 (0.0-0.1) K/uL Nucleated RBC % 0.0 0.0 /100WBC Nucleated RBCs # 0 0 K/uL ESR (0-19) mm/hr Sodium 138 (136-148) mmol/L Potassium 4.3 (3.5-5.1) mmol/L Chloride 102 (98-107) mmol/L Carbon Dioxide 25.5 (21.0-32.0) mmol/L BUN 25 H (7.0-18.0) mg/dL Creatinine 1.1 (0.8-1.3) mg/dL Est Cr Clr Drug Dosing 61.59 mL/min Estimated GFR (MDRD) > 60.0 ml/min Glucose 154 H (74-106) mg/dL POC Glucose (60-110) mg/dL Hemoglobin A1c (4.5-6.2) % Calcium 9.0 (8.5-10.1) mg/dL Total Bilirubin 0.6 (0.2-1.0) mg/dL AST 17 (15-37) IU/L ALT 22 (14-63) IU/L Alkaline Phosphatase 91 (46-116) U/L Troponin I (0.000-0.056) ng/mL Total Protein 6.7 (6.4-8.2) g/dL Albumin 2.3 L (3.4-5.0) g/dL Globulin 4.4 H (2.6-4.0) g/dL Albumin/Globulin Ratio 0.5 L (0.9-1.6) Triglycerides (0-200) mg/dL Cholesterol (50-200) mg/dL LDL Cholesterol, Calc (60-180) mg/dL VLDL Cholesterol (5-55) mg/dL HDL Cholesterol (40-60) mg/dL Cholesterol/HDL Ratio (3.3-6.0) Lipase 50 L (73-393) U/L 06/24/19 06/24/19 06/24/19 Range/Units 05:51 05:51 06:42 WBC (4.0-11.0) K/uL RBC (4.50-5.90) M/uL Hgb (13.0-17.0) g/dL Hct (38.0-50.0) % MCV (80.0-98.0) fL MCH (27.0-32.0) pg MCHC (31.0-37.0) g/dL RDW Std Deviation (28.0-62.0) fl RDW Coeff of Letty (11.0-15.0) % Plt Count (150-400) K/uL MPV (7.40-12.00) fL Neut % (Auto) (48.0-80.0) % Lymph % (Auto) (16.0-40.0) % Cloud % (Auto) (0.0-15.0) % Eos % (Auto) (0.0-7.0) % Baso % (Auto) (0.0-1.5) % Neut # (Auto) (1.4-5.7) K/uL Lymph # (Auto) (0.6-2.4) K/uL Cloud # (Auto) (0.0-0.8) K/uL Eos # (Auto) (0.0-0.7) K/uL Baso # (Auto) (0.0-0.1) K/uL Nucleated RBC % /100WBC Nucleated RBCs # K/uL ESR (0-19) mm/hr Sodium 138 (136-148) mmol/L Potassium 4.5 (3.5-5.1) mmol/L Chloride 103 (98-107) mmol/L Carbon Dioxide 26.6 (21.0-32.0) mmol/L BUN 22 H (7.0-18.0) mg/dL Creatinine 1.1 (0.8-1.3) mg/dL Est Cr Clr Drug Dosing 61.59 mL/min Estimated GFR (MDRD) > 60.0 ml/min Glucose 159 H (74-106) mg/dL POC Glucose 155 H (60-110) mg/dL Hemoglobin A1c 6.7 H (4.5-6.2) % Calcium 8.7 (8.5-10.1) mg/dL Total Bilirubin (0.2-1.0) mg/dL AST (15-37) IU/L ALT (14-63) IU/L Alkaline Phosphatase (46-116) U/L Troponin I (0.000-0.056) ng/mL Total Protein (6.4-8.2) g/dL Albumin (3.4-5.0) g/dL Globulin (2.6-4.0) g/dL Albumin/Globulin Ratio (0.9-1.6) Triglycerides 115 (0-200) mg/dL Cholesterol 94 (50-200) mg/dL LDL Cholesterol, Calc 45 L (60-180) mg/dL VLDL Cholesterol 23 (5-55) mg/dL HDL Cholesterol 26 L (40-60) mg/dL Cholesterol/HDL Ratio 3.6 (3.3-6.0) Lipase (73-393) U/L 06/24/19 Range/Units 08:13 WBC (4.0-11.0) K/uL RBC (4.50-5.90) M/uL Hgb (13.0-17.0) g/dL Hct (38.0-50.0) % MCV (80.0-98.0) fL MCH (27.0-32.0) pg MCHC (31.0-37.0) g/dL RDW Std Deviation (28.0-62.0) fl RDW Coeff of Letty (11.0-15.0) % Plt Count (150-400) K/uL MPV (7.40-12.00) fL Neut % (Auto) (48.0-80.0) % Lymph % (Auto) (16.0-40.0) % Cloud % (Auto) (0.0-15.0) % Eos % (Auto) (0.0-7.0) % Baso % (Auto) (0.0-1.5) % Neut # (Auto) (1.4-5.7) K/uL Lymph # (Auto) (0.6-2.4) K/uL Cloud # (Auto) (0.0-0.8) K/uL Eos # (Auto) (0.0-0.7) K/uL Baso # (Auto) (0.0-0.1) K/uL Nucleated RBC % /100WBC Nucleated RBCs # K/uL ESR (0-19) mm/hr Sodium (136-148) mmol/L Potassium (3.5-5.1) mmol/L Chloride (98-107) mmol/L Carbon Dioxide (21.0-32.0) mmol/L BUN (7.0-18.0) mg/dL Creatinine (0.8-1.3) mg/dL Est Cr Clr Drug Dosing mL/min Estimated GFR (MDRD) ml/min Glucose (74-106) mg/dL POC Glucose 139 H (60-110) mg/dL Hemoglobin A1c (4.5-6.2) % Calcium (8.5-10.1) mg/dL Total Bilirubin (0.2-1.0) mg/dL AST (15-37) IU/L ALT (14-63) IU/L Alkaline Phosphatase (46-116) U/L Troponin I (0.000-0.056) ng/mL Total Protein (6.4-8.2) g/dL Albumin (3.4-5.0) g/dL Globulin (2.6-4.0) g/dL Albumin/Globulin Ratio (0.9-1.6) Triglycerides (0-200) mg/dL Cholesterol (50-200) mg/dL LDL Cholesterol, Calc (60-180) mg/dL VLDL Cholesterol (5-55) mg/dL HDL Cholesterol (40-60) mg/dL Cholesterol/HDL Ratio (3.3-6.0) Lipase (73-393) U/L Can Results Last 24 Hours: Microbiology 06/21/19 20:00 Aerobic Blood Culture - Final Blood - Venous Staphylococcus Epidermidis Anaerobic Blood Culture - Preliminary 06/21/19 20:25 Aerobic Blood Culture - Preliminary Blood - Venous - Lab Draw NO GROWTH AFTER 2 DAYS Anaerobic Blood Culture - Preliminary NO GROWTH AFTER 2 DAYS Med Orders - Current: Current Medications Acetaminophen (Tylenol) 650 mg PO Q6H PRN PRN Reason: Pain Last Admin: 06/23/19 01:09 Dose: 650 mg Atorvastatin Calcium (Lipitor) 20 mg PO DAILY [facility] Last Admin: 06/24/19 08:17 Dose: 20 mg Calcium Carbonate/Glycine (Tums) 500 mg PO TID PRN PRN Reason: Indigestion Last Admin: 06/22/19 23:42 Dose: 500 mg Heparin Sodium (Porcine) (Heparin Sodium) 5,000 units SUBCUT Q8H [facility] Last Admin: 06/24/19 08:17 Dose: 5,000 units Vancomycin HCl 2 gm/ Sodium (Chloride) 500 mls @ 333.333 mls/hr IV Q12H [facility] Last Admin: 06/24/19 01:06 Dose: 333.333 mls/hr Piperacillin Sod/Tazobactam (Sod 3.375 gm/ Sodium Chloride) 50 mls @ 100 mls/ hr IV Q6H [facility] Last Admin: 06/24/19 08:17 Dose: 100 mls/hr Insulin Aspart (Novolog) 0 unit SUBCUT TIDAC [facility]; Protocol Last Admin: 06/24/19 08:13 Dose: Not Given Morphine Sulfate (Morphine) 2 mg IVPUSH Q2H PRN PRN Reason: Pain Last Admin: 06/24/19 07:22 Dose: 2 mg Pantoprazole Sodium (Protonix) 40 mg PO ACBREAKFAST [facility] Last Admin: 06/24/19 08:17 Dose: 40 mg Vancomycin HCl (Pharmacy To Dose - Vancomycin) 1 dose .XX ASDIRECTED [facility] Discontinued Medications Atorvastatin Calcium (Lipitor) 20 mg PO DAILY [facility] Al Hydroxide/Mg Hydroxide 15 (ml/ Lidocaine HCl 5 ml) 0 ml PO ONETIME ONE Stop: 06/23/19 08:31 Last Admin: 06/23/19 09:28 Dose: 1 each Sodium Chloride (Normal Saline) 1,000 mls @ 1,000 mls/hr IV .Bolus ONE Stop: 06/21/19 20:43 Last Admin: 06/21/19 20:10 Dose: 1,000 mls/hr Piperacillin Sod/Tazobactam (Sod 4.5 gm/ Sodium Chloride) 100 mls @ 100 mls/hr IV ONETIME ONE Stop: 06/21/19 21:33 Last Admin: 06/21/19 20:46 Dose: 100 mls/hr Sodium Chloride (Normal Saline) 1,000 mls @ 1,000 mls/hr IV .Bolus ONE Stop: 06/21/19 21:34 Last Admin: 06/21/19 20:54 Dose: 1,000 mls/hr Sodium Chloride (Normal Saline) 1,000 mls @ 1,000 mls/hr IV .Bolus ONE Stop: 06/21/19 21:35 Last Admin: 06/21/19 22:07 Dose: 1,000 mls/hr Vancomycin HCl 1.25 gm/ Sodium (Chloride) 250 mls @ 167 mls/hr IV ONETIME ONE Stop: 06/22/19 00:09 Last Admin: 06/21/19 23:31 Dose: 167 mls/hr Vancomycin HCl 0.75 gm/ Sodium (Chloride) 250 mls @ 166.667 mls/hr IV ONETIME ONE Stop: 06/22/19 03:59 Last Admin: 06/22/19 03:44 Dose: 166.667 mls/hr Vancomycin HCl 2 gm/ Sodium (Chloride) 500 mls @ 333.333 mls/hr IV Q24H [facility] Last Admin: 06/23/19 00:17 Dose: 333.333 mls/hr Pantoprazole Sodium 40 mg/ (Sodium Chloride) 10 mls @ 300 mls/hr IV NOW ONE Stop: 06/23/19 11:18 Last Admin: 06/23/19 11:49 Dose: 300 mls/hr Pantoprazole Sodium 40 mg/ (Sodium Chloride) 10 mls @ 300 mls/hr IV NOW ONE Stop: 06/23/19 21:14 Last Admin: 06/23/19 21:34 Dose: 300 mls/hr Piperacillin Sod/Tazobactam (Sod 3.375 gm/ Sodium Chloride) 50 mls @ 100 mls/ hr IV Q6H [facility] Last Admin: 06/24/19 01:38 Dose: Not Given Metformin HCl (Glucophage) 1,000 mg PO BIDMEALS [facility] Last Admin: 06/24/19 08:17 Dose: 1,000 mg Metformin 1000 Mg (Tab) 1 each PO BIDMEALS [facility] Last Admin: 06/23/19 09:43 Dose: Not Given Atorvastatin 20 Mg (Tab) 1 each PO DAILY [facility] Last Admin: 06/22/19 09:06 Dose: 1 each - Exam General: Alert, Oriented, Cooperative, No Acute Distress Lungs: Clear to Auscultation, Normal Respiratory Effort Cardiovascular: Regular Rate, Regular Rhythm GI/Abdominal Exam: Normal Bowel Sounds, Soft, Tender (RUQ), Other (obese abdomen ) Extremities: Normal Range of Motion, Pedal Edema (+2 non pitting LLE) Neurological: No New Focal Deficit Psy/Mental Status: Alert, Normal Affect, Normal Mood Sepsis Event Note - Evaluation Sepsis Screening Result: No Definite Risk - Focused Exam Vital Signs: Vital Signs Temp Pulse Resp BP Pulse Ox Pulse Ox 06/24/19 07:37 93 L 06/24/19 07:36 97.6 F 81 17 128/71 93 L 06/24/19 03:17 98.5 F 85 20 128/65 92 L 06/24/19 00:35 97.8 F 86 20 122/63 95 Date Exam was Performed: 06/24/19 Time Exam was Performed: 11:23 - Problem List & Annotations (1) Cellulitis SNOMED Code(s): 514052393 Code(s): L03.90 - CELLULITIS, UNSPECIFIED Status: Acute Current Visit: Yes Qualifiers: Site of cellulitis: extremity Site of cellulitis of extremity: lower extremity Laterality: left Qualified Code(s): L03.116 - Cellulitis of left lower limb (2) Chest pain SNOMED Code(s): 80748659 Code(s): R07.9 - CHEST PAIN, UNSPECIFIED Status: Acute Current Visit: Yes (3) HTN (hypertension) SNOMED Code(s): 37196676 Code(s): I10 - ESSENTIAL (PRIMARY) HYPERTENSION Status: Chronic Current Visit: Yes (4) HLD (hyperlipidemia) SNOMED Code(s): 25167507 Code(s): E78.5 - HYPERLIPIDEMIA, UNSPECIFIED Status: Chronic Current Visit: Yes (5) DM type 2 (diabetes mellitus, type 2) SNOMED Code(s): 27000414 Code(s): E11.9 - TYPE 2 DIABETES MELLITUS WITHOUT COMPLICATIONS Status: Chronic Current Visit: Yes Qualifiers: Diabetes mellitus ocean transportation intermediary insulin use: without ocean transportation intermediary use Diabetes mellitus complication status: with skin complications Diabetes mellitus complication detail: with other skin complication Qualified Code(s): E11.628 - Type 2 diabetes mellitus with other skin complications (6) Obesity SNOMED Code(s): 821604610, 435589354 Code(s): E66.9 - OBESITY, UNSPECIFIED Status: Chronic Current Visit: Yes - Problem List Review Problem List Initiated/Reviewed/Updated: Yes - My Orders Last 24 Hours: My Active Orders 06/23/19 11:17 Blood Culture x2 Reflex Set [OM.PC] Stat 06/23/19 11:25 Telemetry Monitoring [Cardiac Monitoring] [RC] Q8H 06/23/19 11:36 Elevate Extremity [RC] BID 06/23/19 14:14 CULTURE BLOOD [BC] Routine 06/23/19 14:29 CULTURE BLOOD [BC] Routine 06/23/19 16:00 Intake and Output [RC] Q12H 06/24/19 07:30 Pantoprazole [ProTONIX] 40 mg PO ACBREAKFAST 06/24/19 11:15 Notify Provider Consults [RC] ASDIRECTED Consult to Physician [CONS] Routine 06/24/19 Lunch Clear Liquid Diet [DIET] 06/25/19 05:11 BMP [BASIC METABOLIC PANEL,BMP] [CHEM] AM CBC WITH AUTO DIFF [HEME] AM 06/26/19 05:11 BMP [BASIC METABOLIC PANEL,BMP] [CHEM] AM CBC WITH AUTO DIFF [HEME] AM - Plan Plan:: 69 yo male admitted for left lower extremity cellulitis. 1. Gram positive cocci bacteremia/ L lower extremity cellulitis - Continue with Vancomycin. - Repeat BC today, and monitor CAN for first set - Elevate leg as much as possible to limit further edema 2. Acute cholecystitis: - RUQ pain started last night, CT abdomen shows acute cholecystitis. RUQ US undetermined due to poor imaging. - Consult Dr Farrell, monitor today, if pain worsens or leukocytosis worsens need to transfer due to comorbidities and obesity. - Continue Zosyn - Protonix - CL diet today. - Start gentle IVFs 3. HTN: - Stable, monitor 4. DM type 2: - Monitor BS TIDAC, with Novolog SSI Diet: ADA Code Status: Full code VTE prophylaxis: Heparin Dispo: 2-3 days
--- NOTE | 2019-06-24 15:13 | PCM.CONS ---
H&P History of Present Illness - General Date of Service: 06/24/19 Admit Problem/Dx: Admission Diagnosis/Problem Admission Diagnosis/Problem Cellulitis of left lower leg Source of Information: Patient History Limitations: Reports: No Limitations - History of Present Illness Initial Comments - Free Text/Narative: Patient is a 69 year old male with HTN, DM and morbid obesity with a BMI of 48 admitted to the medicine service yesterday for left leg cellulitis. He was placed on zosyn. While in house, he developed an acute sharp pain in the right upper quadrant. He denies every having pain like this in the past. A CT abdomen pelvis was performed which showed a distended gallbladder with alonso-cholecystic fluid concerning for possible acute cholecystitis. An US was performed which was inconclusive due to inability to adequately see the gallbladder. The patient 's WBC is now in normal range and today he feels better and is "sore" in the RUQ. He tolerated breakfast this morning with no issues. His vital signs are normal. Epigastric Pain Score (Numeric/FACES): 4 Right Upper Abdomen Pain Score (Numeric/FACES): 7 Left Leg Pain Score (Numeric/FACES): 2 - Related Data Allergies/Adverse Reactions: Allergies Allergy/AdvReac Type Severity Reaction Status Date / Time No Known Allergies Allergy Verified 06/22/19 06:25 Home Medications: Home Meds Ferrous Sulfate 325 mg PO DAILY 06/22/19 [History] Lisinopril/Hydrochlorothiazide [Lisinopril-Hctz 20-25 mg Tab] 20 - 25 mg PO DAILY 06/22/19 [History] Naproxen Sodium 220 mg PO Q8HR PRN 06/22/19 [History] Saw/Py/Net/Pumpk/Beta/Ly/Zn/Cu [Prostate Control Softgel] 1 cap PO DAILY [History] atorvaSTATin [Lipitor] 20 mg PO DAILY 06/22/19 [History] metFORMIN [Glucophage] 1,000 mg PO BIDMEALS 06/22/19 [History] Past Medical History Cardiovascular History: Reports: High Cholesterol, Hypertension Endocrine/Metabolic History: Reports: Diabetes, Type II Oncologic (Cancer) History: Reports: Basal Cell Carcinoma Other Oncologic History: Removal on left side of face a couple weeks ago. - Infectious Disease History Infectious Disease History: Reports: Measles, Mumps, Shingles - Past Surgical History HEENT Surgical History: Reports: Eye Surgery Other HEENT Surgeries/Procedures: Right removal of eye, has glass eye. Social & Family History - Tobacco Use Smoking Status *Q: Never Smoker - Caffeine Use Caffeine Use: Reports: Coffee - Recreational Drug Use Recreational Drug Use: No H&P Review of Systems - Review of Systems: Review Of Systems: See Below Exam - Exam Exam: See Below - Vital Signs Vital Signs: Last Vital Signs Temp 36.4 C 06/24/19 11:00 Pulse 85 06/24/19 11:00 Resp 20 06/24/19 11:00 BP 123/61 06/24/19 11:00 Pulse Ox 93 L 06/24/19 11:00 Weight: 147.735 kg - Exam General: Alert, Oriented, Cooperative HEENT: Conjunctiva Clear, Mucosa Moist & [place], Posterior Pharynx Clear Lungs: Clear to Auscultation, Normal Respiratory Effort Cardiovascular: Regular Rate, Regular Rhythm GI/Abdominal Exam: Soft, No Distention, No Mass, Tender (with deep palpation in the RUQ ) Back Exam: Normal Inspection, Full Range of Motion Extremities: Other (Erythematous, edematous LLE) - Patient Data Lab Results Last 24 hrs: Laboratory Results - last 24 hr 06/21/19 06/23/19 06/23/19 Range/Units 20:00 14:14 18:06 WBC (4.0-11.0) K/uL RBC (4.50-5.90) M/uL Hgb (13.0-17.0) g/dL Hct (38.0-50.0) % MCV (80.0-98.0) fL MCH (27.0-32.0) pg MCHC (31.0-37.0) g/dL RDW Std Deviation (28.0-62.0) fl RDW Coeff of Letty (11.0-15.0) % Plt Count (150-400) K/uL MPV (7.40-12.00) fL Neut % (Auto) (48.0-80.0) % Lymph % (Auto) (16.0-40.0) % [place] % (Auto) (0.0-15.0) % Eos % (Auto) (0.0-7.0) % Baso % (Auto) (0.0-1.5) % Neut # (Auto) (1.4-5.7) K/uL Lymph # (Auto) (0.6-2.4) K/uL [place] # (Auto) (0.0-0.8) K/uL Eos # (Auto) (0.0-0.7) K/uL Baso # (Auto) (0.0-0.1) K/uL Nucleated RBC % /100WBC Nucleated RBCs # K/uL ESR 52 H (0-19) mm/hr Sodium (136-148) mmol/L Potassium (3.5-5.1) mmol/L Chloride (98-107) mmol/L Carbon Dioxide (21.0-32.0) mmol/L BUN (7.0-18.0) mg/dL Creatinine (0.8-1.3) mg/dL Est Cr Clr Drug Dosing mL/min Estimated GFR (MDRD) ml/min Glucose (74-106) mg/dL POC Glucose 133 H (60-110) mg/dL Hemoglobin A1c (4.5-6.2) % Calcium (8.5-10.1) mg/dL Total Bilirubin (0.2-1.0) mg/dL AST (15-37) IU/L ALT (14-63) IU/L Alkaline Phosphatase (46-116) U/L Troponin I < 0.050 (0.000-0.056) ng/mL Total Protein (6.4-8.2) g/dL Albumin (3.4-5.0) g/dL Globulin (2.6-4.0) g/dL Albumin/Globulin Ratio (0.9-1.6) Triglycerides (0-200) mg/dL Cholesterol (50-200) mg/dL LDL Cholesterol, Calc (60-180) mg/dL VLDL Cholesterol (5-55) mg/dL HDL Cholesterol (40-60) mg/dL Cholesterol/HDL Ratio (3.3-6.0) Lipase (73-393) U/L Vancomycin Trough (5.0-10.0) ug/mL 06/23/19 06/23/19 06/23/19 Range/Units 19:35 22:10 22:10 WBC 11.45 H (4.0-11.0) K/uL RBC 4.78 (4.50-5.90) M/uL Hgb 12.2 L (13.0-17.0) g/dL Hct 38.8 (38.0-50.0) % MCV 81.2 (80.0-98.0) fL MCH 25.5 L (27.0-32.0) pg MCHC 31.4 (31.0-37.0) g/dL RDW Std Deviation 50.8 (28.0-62.0) fl RDW Coeff of Letty 17 H (11.0-15.0) % Plt Count 264 (150-400) K/uL MPV 9.20 (7.40-12.00) fL Neut % (Auto) 85.1 H (48.0-80.0) % Lymph % (Auto) 5.2 L (16.0-40.0) % [place] % (Auto) 9.4 (0.0-15.0) % Eos % (Auto) 0.2 (0.0-7.0) % Baso % (Auto) 0.1 (0.0-1.5) % Neut # (Auto) 9.7 H (1.4-5.7) K/uL Lymph # (Auto) 0.6 (0.6-2.4) K/uL [place] # (Auto) 1.1 H (0.0-0.8) K/uL Eos # (Auto) 0.0 (0.0-0.7) K/uL Baso # (Auto) 0.0 (0.0-0.1) K/uL Nucleated RBC % 0.0 /100WBC Nucleated RBCs # 0 K/uL ESR (0-19) mm/hr Sodium 138 (136-148) mmol/L Potassium 4.3 (3.5-5.1) mmol/L Chloride 102 (98-107) mmol/L Carbon Dioxide 25.5 (21.0-32.0) mmol/L BUN 25 H (7.0-18.0) mg/dL Creatinine 1.1 (0.8-1.3) mg/dL Est Cr Clr Drug Dosing 61.59 mL/min Estimated GFR (MDRD) > 60.0 ml/min Glucose 154 H (74-106) mg/dL POC Glucose (60-110) mg/dL Hemoglobin A1c (4.5-6.2) % Calcium 9.0 (8.5-10.1) mg/dL Total Bilirubin 0.6 (0.2-1.0) mg/dL AST 17 (15-37) IU/L ALT 22 (14-63) IU/L Alkaline Phosphatase 91 (46-116) U/L Troponin I < 0.050 (0.000-0.056) ng/mL Total Protein 6.7 (6.4-8.2) g/dL Albumin 2.3 L (3.4-5.0) g/dL Globulin 4.4 H (2.6-4.0) g/dL Albumin/Globulin Ratio 0.5 L (0.9-1.6) Triglycerides (0-200) mg/dL Cholesterol (50-200) mg/dL LDL Cholesterol, Calc (60-180) mg/dL VLDL Cholesterol (5-55) mg/dL HDL Cholesterol (40-60) mg/dL Cholesterol/HDL Ratio (3.3-6.0) Lipase 50 L (73-393) U/L Vancomycin Trough (5.0-10.0) ug/mL 06/24/19 06/24/19 06/24/19 Range/Units 05:51 05:51 05:51 WBC 10.31 (4.0-11.0) K/uL RBC 4.71 (4.50-5.90) M/uL Hgb 12.0 L (13.0-17.0) g/dL Hct 38.4 (38.0-50.0) % MCV 81.5 (80.0-98.0) fL MCH 25.5 L (27.0-32.0) pg MCHC 31.3 (31.0-37.0) g/dL RDW Std Deviation 50.9 (28.0-62.0) fl RDW Coeff of Letty 17 H (11.0-15.0) % Plt Count 270 (150-400) K/uL MPV 9.30 (7.40-12.00) fL Neut % (Auto) 82.6 H (48.0-80.0) % Lymph % (Auto) 5.4 L (16.0-40.0) % [place] % (Auto) 11.4 (0.0-15.0) % Eos % (Auto) 0.3 (0.0-7.0) % Baso % (Auto) 0.3 (0.0-1.5) % Neut # (Auto) 8.5 H (1.4-5.7) K/uL Lymph # (Auto) 0.6 (0.6-2.4) K/uL [place] # (Auto) 1.2 H (0.0-0.8) K/uL Eos # (Auto) 0.0 (0.0-0.7) K/uL Baso # (Auto) 0.0 (0.0-0.1) K/uL Nucleated RBC % 0.0 /100WBC Nucleated RBCs # 0 K/uL ESR (0-19) mm/hr Sodium 138 (136-148) mmol/L Potassium 4.5 (3.5-5.1) mmol/L Chloride 103 (98-107) mmol/L Carbon Dioxide 26.6 (21.0-32.0) mmol/L BUN 22 H (7.0-18.0) mg/dL Creatinine 1.1 (0.8-1.3) mg/dL Est Cr Clr Drug Dosing 61.59 mL/min Estimated GFR (MDRD) > 60.0 ml/min Glucose 159 H (74-106) mg/dL POC Glucose (60-110) mg/dL Hemoglobin A1c 6.7 H (4.5-6.2) % Calcium 8.7 (8.5-10.1) mg/dL Total Bilirubin (0.2-1.0) mg/dL AST (15-37) IU/L ALT (14-63) IU/L Alkaline Phosphatase (46-116) U/L Troponin I (0.000-0.056) ng/mL Total Protein (6.4-8.2) g/dL Albumin (3.4-5.0) g/dL Globulin (2.6-4.0) g/dL Albumin/Globulin Ratio (0.9-1.6) Triglycerides 115 (0-200) mg/dL Cholesterol 94 (50-200) mg/dL LDL Cholesterol, Calc 45 L (60-180) mg/dL VLDL Cholesterol 23 (5-55) mg/dL HDL Cholesterol 26 L (40-60) mg/dL Cholesterol/HDL Ratio 3.6 (3.3-6.0) Lipase (73-393) U/L Vancomycin Trough (5.0-10.0) ug/mL 06/24/19 06/24/19 06/24/19 Range/Units 06:42 08:13 12:18 WBC (4.0-11.0) K/uL RBC (4.50-5.90) M/uL Hgb (13.0-17.0) g/dL Hct (38.0-50.0) % MCV (80.0-98.0) fL MCH (27.0-32.0) pg MCHC (31.0-37.0) g/dL RDW Std Deviation (28.0-62.0) fl RDW Coeff of Letty (11.0-15.0) % Plt Count (150-400) K/uL MPV (7.40-12.00) fL Neut % (Auto) (48.0-80.0) % Lymph % (Auto) (16.0-40.0) % [place] % (Auto) (0.0-15.0) % Eos % (Auto) (0.0-7.0) % Baso % (Auto) (0.0-1.5) % Neut # (Auto) (1.4-5.7) K/uL Lymph # (Auto) (0.6-2.4) K/uL [place] # (Auto) (0.0-0.8) K/uL Eos # (Auto) (0.0-0.7) K/uL Baso # (Auto) (0.0-0.1) K/uL Nucleated RBC % /100WBC Nucleated RBCs # K/uL ESR (0-19) mm/hr Sodium (136-148) mmol/L Potassium (3.5-5.1) mmol/L Chloride (98-107) mmol/L Carbon Dioxide (21.0-32.0) mmol/L BUN (7.0-18.0) mg/dL Creatinine (0.8-1.3) mg/dL Est Cr Clr Drug Dosing mL/min Estimated GFR (MDRD) ml/min Glucose (74-106) mg/dL POC Glucose 155 H 139 H 153 H (60-110) mg/dL Hemoglobin A1c (4.5-6.2) % Calcium (8.5-10.1) mg/dL Total Bilirubin (0.2-1.0) mg/dL AST (15-37) IU/L ALT (14-63) IU/L Alkaline Phosphatase (46-116) U/L Troponin I (0.000-0.056) ng/mL Total Protein (6.4-8.2) g/dL Albumin (3.4-5.0) g/dL Globulin (2.6-4.0) g/dL Albumin/Globulin Ratio (0.9-1.6) Triglycerides (0-200) mg/dL Cholesterol (50-200) mg/dL LDL Cholesterol, Calc (60-180) mg/dL VLDL Cholesterol (5-55) mg/dL HDL Cholesterol (40-60) mg/dL Cholesterol/HDL Ratio (3.3-6.0) Lipase (73-393) U/L Vancomycin Trough (5.0-10.0) ug/mL 06/24/19 06/24/19 Range/Units 12:33 13:09 WBC (4.0-11.0) K/uL RBC (4.50-5.90) M/uL Hgb (13.0-17.0) g/dL Hct (38.0-50.0) % MCV (80.0-98.0) fL MCH (27.0-32.0) pg MCHC (31.0-37.0) g/dL RDW Std Deviation (28.0-62.0) fl RDW Coeff of Letty (11.0-15.0) % Plt Count (150-400) K/uL MPV (7.40-12.00) fL Neut % (Auto) (48.0-80.0) % Lymph % (Auto) (16.0-40.0) % [place] % (Auto) (0.0-15.0) % Eos % (Auto) (0.0-7.0) % Baso % (Auto) (0.0-1.5) % Neut # (Auto) (1.4-5.7) K/uL Lymph # (Auto) (0.6-2.4) K/uL [place] # (Auto) (0.0-0.8) K/uL Eos # (Auto) (0.0-0.7) K/uL Baso # (Auto) (0.0-0.1) K/uL Nucleated RBC % /100WBC Nucleated RBCs # K/uL ESR (0-19) mm/hr Sodium (136-148) mmol/L Potassium (3.5-5.1) mmol/L Chloride (98-107) mmol/L Carbon Dioxide (21.0-32.0) mmol/L BUN (7.0-18.0) mg/dL Creatinine (0.8-1.3) mg/dL Est Cr Clr Drug Dosing mL/min Estimated GFR (MDRD) ml/min Glucose (74-106) mg/dL POC Glucose 128 H (60-110) mg/dL Hemoglobin A1c (4.5-6.2) % Calcium (8.5-10.1) mg/dL Total Bilirubin (0.2-1.0) mg/dL AST (15-37) IU/L ALT (14-63) IU/L Alkaline Phosphatase (46-116) U/L Troponin I (0.000-0.056) ng/mL Total Protein (6.4-8.2) g/dL Albumin (3.4-5.0) g/dL Globulin (2.6-4.0) g/dL Albumin/Globulin Ratio (0.9-1.6) Triglycerides (0-200) mg/dL Cholesterol (50-200) mg/dL LDL Cholesterol, Calc (60-180) mg/dL VLDL Cholesterol (5-55) mg/dL HDL Cholesterol (40-60) mg/dL Cholesterol/HDL Ratio (3.3-6.0) Lipase (73-393) U/L Vancomycin Trough 15.1 H (5.0-10.0) ug/mL Result Diagrams: 06/24/19 05:51 06/24/19 05:51 Can Results Last 24 hrs: Microbiology 06/23/19 14:29 Aerobic Blood Culture - Preliminary Blood - Venous - Lab Draw NO GROWTH AFTER 1 DAY Anaerobic Blood Culture - Preliminary NO GROWTH AFTER 1 DAY 06/23/19 14:14 Aerobic Blood Culture - Preliminary Blood - Venous NO GROWTH AFTER 1 DAY Anaerobic Blood Culture - Preliminary NO GROWTH AFTER 1 DAY 03/28/20 20:00 Aerobic Blood Culture - Final Blood - Venous Staphylococcus Epidermidis Anaerobic Blood Culture - Preliminary 06/21/19 20:25 Aerobic Blood Culture - Preliminary Blood - Venous - Lab Draw NO GROWTH AFTER 2 DAYS Anaerobic Blood Culture - Preliminary NO GROWTH AFTER 2 DAYS Sepsis Event Note - Evaluation Sepsis Screening Result: No Definite Risk - Focused Exam Vital Signs: Vital Signs Temp Pulse Resp BP Pulse Ox Pulse Ox 06/24/19 11:00 36.4 C 85 20 123/61 93 L 06/24/19 07:37 93 L 06/24/19 07:36 36.4 C 81 17 128/71 93 L 06/24/19 03:17 36.9 C 85 20 128/65 92 L Date Exam was Performed: 06/24/19 Time Exam was Performed: 15:01 Consult PN Assessment/Plan Procedures: Procedures X-RAY EXAM OF KNEE 1 OR 2 (11/05/15) (1) RUQ abdominal pain SNOMED Code(s): 676201497 Code(s): R10.11 - RIGHT UPPER QUADRANT PAIN Current Visit: Yes (2) Cellulitis SNOMED Code(s): 899039911 Code(s): L03.90 - CELLULITIS, UNSPECIFIED Current Visit: Yes Qualifiers: Site of cellulitis: extremity Site of cellulitis of extremity: lower extremity Laterality: left Qualified Code(s): L03.116 - Cellulitis of left lower limb Problem List Initiated/Reviewed/Updated: Yes Plan: Patient is a 69 year old male who 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 His LFTs and bilirubin were normal yesterday. WBC is not helpful given his concomitant cellulitis. He feels better today abdominal-parker. He and I discussed the pathology of biliary disease. At this time, will continue broad spectrum antibiotic coverage, bowel rest with clear liquids, and re-evaluate in the am. If his pain gets worse, LFTs rise, and/or his WBC rises, given his morbid obesity and comorbidities, I feel he would be better cared for in a large facility. If there is no change could consider repeat US or MRCP tomorrow. Will continue to follow along. Call with questions or concerns.
[2019-06-25] MEDS: Heparin Sodium 5,000 Units/ML Vial SUBCUT SCH ×3 (00:35→18:45)
[2019-06-25] MEDS: Vancomycin 2 GM in Sodium Chloride 0.9% 500 ML IV SCH ×2 (00:40→14:40)
[2019-06-25] MEDS: Piperacillin/Tazobactam 3.375 GM in Sodium Chloride 0.9% 50 ML IV SCH ×2 (02:16→09:11)
[2019-06-25] MEDS: Pantoprazole 40 MG Tab.CR PO SCH (06:34)
[2019-06-25] MEDS: Insulin Aspart 100 Units/ML 3 ML Pen SUBCUT SCH ×3 (06:37→18:43)
[2019-06-25 07:52] LABS: CARBON DIOXIDE,CO2 28.1 mmol/L (21.0-32.0); POTASSIUM,K 4.5 mmol/L (3.5-5.1)
[2019-06-25] MEDS: atorvaSTATin 20 MG Tab PO SCH (09:05)
--- NOTE | 2019-06-25 09:07 | PCM.PN ---
- General Info Date of Service: 06/25/19 Admission Dx/Problem (Free Text): Admission Diagnosis/Problem Admission Diagnosis/Problem Cellulitis of left lower leg Subjective Update: Feeling improved today, no chest pain. No abdominal pain. Appetite is not great , but no nausea or vomiting. Feels legs is much improved, less pain with ambulation. Functional Status: Reports: Pain Controlled, Tolerating Diet, Ambulating, Urinating - Review of Systems General: Reports: No Symptoms. Denies: Fatigue, Malaise HEENT: Reports: No Symptoms Pulmonary: Reports: No Symptoms. Denies: Shortness of Breath Cardiovascular: Reports: No Symptoms. Denies: Chest Pain Gastrointestinal: Reports: Decreased Appetite. Denies: Abdominal Pain, Nausea, Vomiting Musculoskeletal: Reports: No Symptoms Skin: Reports: Rash (improving) Neurological: Reports: No Symptoms Psychiatric: Reports: No Symptoms - Patient Data Vitals - Most Recent: Last Vital Signs Temp 98.5 F 06/25/19 04:00 Pulse 91 06/25/19 04:00 Resp 20 06/25/19 04:00 BP 131/65 06/25/19 04:00 Pulse Ox 93 L 06/25/19 04:00 Weight - Most Recent: 147.735 kg I&O - Last 24 Hours: Intake & Output 06/24/19 06/25/19 06/25/19 22:59 06:59 14:59 Intake Total 1160 1070 Output Total 850 Balance 1160 220 Lab Results Last 24 Hours: Laboratory Results - last 24 hr 06/24/19 06/24/19 06/24/19 Range/Units 12:18 12:33 13:09 WBC (4.0-11.0) K/uL RBC (4.50-5.90) M/uL Hgb (13.0-17.0) g/dL Hct (38.0-50.0) % MCV (80.0-98.0) fL MCH (27.0-32.0) pg MCHC (31.0-37.0) g/dL RDW Std Deviation (28.0-62.0) fl RDW Coeff of Letty (11.0-15.0) % Plt Count (150-400) K/uL MPV (7.40-12.00) fL Add Manual Diff Neutrophils % (Manual) (48.0-80.0) % Band Neutrophils % % Lymphocytes % (Manual) (16.0-40.0) % Monocytes % (Manual) (0.0-15.0) % Eosinophils % (Manual) (0.0-7.0) % Basophils % (Manual) (0.0-1.5) % Nucleated RBC % /100WBC Absolute Seg Neuts (1.4-5.7) Band Neutrophils # Lymphocytes # (Manual) (0.6-2.4) Monocytes # (Manual) (0.0-0.8) Eosinophils # (Manual) (0.0-0.7) Basophils # (Manual) (0.0-0.1) Nucleated RBCs # K/uL Sodium (136-148) mmol/L Potassium (3.5-5.1) mmol/L Chloride (98-107) mmol/L Carbon Dioxide (21.0-32.0) mmol/L BUN (7.0-18.0) mg/dL Creatinine (0.8-1.3) mg/dL Est Cr Clr Drug Dosing mL/min Estimated GFR (MDRD) ml/min Glucose (74-106) mg/dL POC Glucose 153 H 128 H (60-110) mg/dL Calcium (8.5-10.1) mg/dL Total Bilirubin (0.2-1.0) mg/dL AST (15-37) IU/L ALT (14-63) IU/L Alkaline Phosphatase (46-116) U/L Total Protein (6.4-8.2) g/dL Albumin (3.4-5.0) g/dL Globulin (2.6-4.0) g/dL Albumin/Globulin Ratio (0.9-1.6) Vancomycin Trough 15.1 H (5.0-10.0) ug/mL 06/24/19 06/25/19 06/25/19 Range/Units 16:15 06:14 06:36 WBC 9.72 (4.0-11.0) K/uL RBC 5.15 (4.50-5.90) M/uL Hgb 13.4 (13.0-17.0) g/dL Hct 41.9 (38.0-50.0) % MCV 81.4 (80.0-98.0) fL MCH 26.0 L (27.0-32.0) pg MCHC 32.0 (31.0-37.0) g/dL RDW Std Deviation 50.7 (28.0-62.0) fl RDW Coeff of Letty 17 H (11.0-15.0) % Plt Count 290 (150-400) K/uL MPV 10.10 (7.40-12.00) fL Add Manual Diff YES Neutrophils % (Manual) 68 (48.0-80.0) % Band Neutrophils % 7 % Lymphocytes % (Manual) 11 L (16.0-40.0) % Monocytes % (Manual) 11 (0.0-15.0) % Eosinophils % (Manual) 2 (0.0-7.0) % Basophils % (Manual) 1 (0.0-1.5) % Nucleated RBC % 0.0 /100WBC Absolute Seg Neuts 6.6 H (1.4-5.7) Band Neutrophils # 0.7 Lymphocytes # (Manual) 1.1 (0.6-2.4) Monocytes # (Manual) 1.1 H (0.0-0.8) Eosinophils # (Manual) 0.2 (0.0-0.7) Basophils # (Manual) 0.1 (0.0-0.1) Nucleated RBCs # 0 K/uL Sodium (136-148) mmol/L Potassium (3.5-5.1) mmol/L Chloride (98-107) mmol/L Carbon Dioxide (21.0-32.0) mmol/L BUN (7.0-18.0) mg/dL Creatinine (0.8-1.3) mg/dL Est Cr Clr Drug Dosing mL/min Estimated GFR (MDRD) ml/min Glucose (74-106) mg/dL POC Glucose 142 H 137 H (60-110) mg/dL Calcium (8.5-10.1) mg/dL Total Bilirubin (0.2-1.0) mg/dL AST (15-37) IU/L ALT (14-63) IU/L Alkaline Phosphatase (46-116) U/L Total Protein (6.4-8.2) g/dL Albumin (3.4-5.0) g/dL Globulin (2.6-4.0) g/dL Albumin/Globulin Ratio (0.9-1.6) Vancomycin Trough (5.0-10.0) ug/mL 06/25/19 Range/Units 07:25 WBC (4.0-11.0) K/uL RBC (4.50-5.90) M/uL Hgb (13.0-17.0) g/dL Hct (38.0-50.0) % MCV (80.0-98.0) fL MCH (27.0-32.0) pg MCHC (31.0-37.0) g/dL RDW Std Deviation (28.0-62.0) fl RDW Coeff of Letty (11.0-15.0) % Plt Count (150-400) K/uL MPV (7.40-12.00) fL Add Manual Diff Neutrophils % (Manual) (48.0-80.0) % Band Neutrophils % % Lymphocytes % (Manual) (16.0-40.0) % Monocytes % (Manual) (0.0-15.0) % Eosinophils % (Manual) (0.0-7.0) % Basophils % (Manual) (0.0-1.5) % Nucleated RBC % /100WBC Absolute Seg Neuts (1.4-5.7) Band Neutrophils # Lymphocytes # (Manual) (0.6-2.4) Monocytes # (Manual) (0.0-0.8) Eosinophils # (Manual) (0.0-0.7) Basophils # (Manual) (0.0-0.1) Nucleated RBCs # K/uL Sodium 139 (136-148) mmol/L Potassium 4.5 (3.5-5.1) mmol/L Chloride 104 (98-107) mmol/L Carbon Dioxide 28.1 (21.0-32.0) mmol/L BUN 23 H (7.0-18.0) mg/dL Creatinine 1.4 H (0.8-1.3) mg/dL Est Cr Clr Drug Dosing 48.40 mL/min Estimated GFR (MDRD) 50.0 ml/min Glucose 165 H (74-106) mg/dL POC Glucose (60-110) mg/dL Calcium 8.7 (8.5-10.1) mg/dL Total Bilirubin 0.8 (0.2-1.0) mg/dL AST 36 (15-37) IU/L ALT 45 (14-63) IU/L Alkaline Phosphatase 104 (46-116) U/L Total Protein 6.4 (6.4-8.2) g/dL Albumin 2.0 L (3.4-5.0) g/dL Globulin 4.4 H (2.6-4.0) g/dL Albumin/Globulin Ratio 0.5 L (0.9-1.6) Vancomycin Trough (5.0-10.0) ug/mL Can Results Last 24 Hours: Microbiology 06/21/19 20:25 Aerobic Blood Culture - Preliminary Blood - Venous - Lab Draw NO GROWTH AFTER 3 DAYS Anaerobic Blood Culture - Preliminary NO GROWTH AFTER 3 DAYS 06/23/19 14:29 Aerobic Blood Culture - Preliminary Blood - Venous - Lab Draw NO GROWTH AFTER 1 DAY Anaerobic Blood Culture - Preliminary NO GROWTH AFTER 1 DAY 06/23/19 14:14 Aerobic Blood Culture - Preliminary Blood - Venous NO GROWTH AFTER 1 DAY Anaerobic Blood Culture - Preliminary NO GROWTH AFTER 1 DAY 06/21/19 20:00 Aerobic Blood Culture - Final Blood - Venous Staphylococcus Epidermidis Anaerobic Blood Culture - Preliminary Med Orders - Current: Current Medications Acetaminophen (Tylenol) 650 mg PO Q6H PRN PRN Reason: Pain Last Admin: 06/23/19 01:09 Dose: 650 mg Atorvastatin Calcium (Lipitor) 20 mg PO DAILY [facility] Last Admin: 06/25/19 09:05 Dose: 20 mg Calcium Carbonate/Glycine (Tums) 500 mg PO TID PRN PRN Reason: Indigestion Last Admin: 06/22/19 23:42 Dose: 500 mg Heparin Sodium (Porcine) (Heparin Sodium) 5,000 units SUBCUT Q8H [facility] Last Admin: 06/25/19 00:35 Dose: 5,000 units Vancomycin HCl 2 gm/ Sodium (Chloride) 500 mls @ 333.333 mls/hr IV Q12H [facility] Last Admin: 06/25/19 00:40 Dose: 333.333 mls/hr Insulin Aspart (Novolog) 0 unit SUBCUT TIDAC [facility]; Protocol Last Admin: 06/25/19 06:37 Dose: Not Given Morphine Sulfate (Morphine) 2 mg IVPUSH Q2H PRN PRN Reason: Pain Last Admin: 06/24/19 19:06 Dose: 2 mg Pantoprazole Sodium (Protonix) 40 mg PO ACBREAKFAST [facility] Last Admin: 06/25/19 06:34 Dose: 40 mg Vancomycin HCl (Pharmacy To Dose - Vancomycin) 1 dose .XX ASDIRECTED [facility] Discontinued Medications Atorvastatin Calcium (Lipitor) 20 mg PO DAILY [facility] Al Hydroxide/Mg Hydroxide 15 (ml/ Lidocaine HCl 5 ml) 0 ml PO ONETIME ONE Stop: 06/23/19 08:31 Last Admin: 06/23/19 09:28 Dose: 1 each Sodium Chloride (Normal Saline) 1,000 mls @ 1,000 mls/hr IV .Bolus ONE Stop: 06/21/19 20:43 Last Admin: 06/21/19 20:10 Dose: 1,000 mls/hr Piperacillin Sod/Tazobactam (Sod 4.5 gm/ Sodium Chloride) 100 mls @ 100 mls/hr IV ONETIME ONE Stop: 06/21/19 21:33 Last Admin: 06/21/19 20:46 Dose: 100 mls/hr Sodium Chloride (Normal Saline) 1,000 mls @ 1,000 mls/hr IV .Bolus ONE Stop: 06/21/19 21:34 Last Admin: 06/21/19 20:54 Dose: 1,000 mls/hr Sodium Chloride (Normal Saline) 1,000 mls @ 1,000 mls/hr IV .Bolus ONE Stop: 06/21/19 21:35 Last Admin: 06/21/19 22:07 Dose: 1,000 mls/hr Vancomycin HCl 1.25 gm/ Sodium (Chloride) 250 mls @ 167 mls/hr IV ONETIME ONE Stop: 06/22/19 00:09 Last Admin: 06/21/19 23:31 Dose: 167 mls/hr Vancomycin HCl 0.75 gm/ Sodium (Chloride) 250 mls @ 166.667 mls/hr IV ONETIME ONE Stop: 06/22/19 03:59 Last Admin: 06/22/19 03:44 Dose: 166.667 mls/hr Vancomycin HCl 2 gm/ Sodium (Chloride) 500 mls @ 333.333 mls/hr IV Q24H [facility] Last Admin: 06/23/19 00:17 Dose: 333.333 mls/hr Pantoprazole Sodium 40 mg/ (Sodium Chloride) 10 mls @ 300 mls/hr IV NOW ONE Stop: 06/23/19 11:18 Last Admin: 06/23/19 11:49 Dose: 300 mls/hr Pantoprazole Sodium 40 mg/ (Sodium Chloride) 10 mls @ 300 mls/hr IV NOW ONE Stop: 06/23/19 21:14 Last Admin: 06/23/19 21:34 Dose: 300 mls/hr Piperacillin Sod/Tazobactam (Sod 3.375 gm/ Sodium Chloride) 50 mls @ 100 mls/ hr IV Q6H [facility] Last Admin: 06/24/19 01:38 Dose: Not Given Piperacillin Sod/Tazobactam (Sod 3.375 gm/ Sodium Chloride) 50 mls @ 100 mls/ hr IV Q6H [facility] Last Admin: 06/25/19 02:16 Dose: 100 mls/hr Metformin HCl (Glucophage) 1,000 mg PO BIDMEALS [facility] Last Admin: 06/24/19 08:17 Dose: 1,000 mg Metformin 1000 Mg (Tab) 1 each PO BIDMEALS [facility] Last Admin: 06/23/19 09:43 Dose: Not Given Atorvastatin 20 Mg (Tab) 1 each PO DAILY [facility] Last Admin: 06/22/19 09:06 Dose: 1 each - Exam General: Alert, Oriented, Cooperative, No Acute Distress Lungs: Clear to Auscultation, Normal Respiratory Effort Cardiovascular: Regular Rate, Regular Rhythm GI/Abdominal Exam: Normal Bowel Sounds, Soft, Non-Tender, Other (obese abdomen) Extremities: Normal Inspection, Normal Range of Motion, Non-Tender, Pedal Edema (+1 non pitting edema to LLE) Wound/Incisions: Erythema Improving (much improved today) Psy/Mental Status: Alert, Normal Affect, Normal Mood Sepsis Event Note - Evaluation Sepsis Screening Result: No Definite Risk - Focused Exam Vital Signs: Vital Signs Temp Pulse Resp BP Pulse Ox 06/25/19 04:00 98.5 F 91 20 131/65 93 L 06/25/19 00:41 99.2 F 89 20 125/61 92 L Date Exam was Performed: 06/25/19 Time Exam was Performed: 10:58 - Problem List & Annotations (1) Cellulitis SNOMED Code(s): 474035648 Code(s): L03.90 - CELLULITIS, UNSPECIFIED Status: Acute Current Visit: Yes Qualifiers: Site of cellulitis: extremity Site of cellulitis of extremity: lower extremity Laterality: left Qualified Code(s): L03.116 - Cellulitis of left lower limb (2) Chest pain SNOMED Code(s): 63762023 Code(s): R07.9 - CHEST PAIN, UNSPECIFIED Status: Acute Current Visit: Yes (3) HTN (hypertension) SNOMED Code(s): 42747896 Code(s): I10 - ESSENTIAL (PRIMARY) HYPERTENSION Status: Chronic Current Visit: Yes (4) HLD (hyperlipidemia) SNOMED Code(s): 07515072 Code(s): E78.5 - HYPERLIPIDEMIA, UNSPECIFIED Status: Chronic Current Visit: Yes (5) DM type 2 (diabetes mellitus, type 2) SNOMED Code(s): 09744059 Code(s): E11.9 - TYPE 2 DIABETES MELLITUS WITHOUT COMPLICATIONS Status: Chronic Current Visit: Yes Qualifiers: Diabetes mellitus retirement insulin use: without terminal block assembler use Diabetes mellitus complication status: with skin complications Diabetes mellitus complication detail: with other skin complication Qualified Code(s): E11.628 - Type 2 diabetes mellitus with other skin complications (6) Obesity SNOMED Code(s): 241140329, 333251259 Code(s): E66.9 - OBESITY, UNSPECIFIED Status: Chronic Current Visit: Yes - Problem List Review Problem List Initiated/Reviewed/Updated: Yes - My Orders Last 24 Hours: My Active Orders 06/24/19 11:15 Notify Provider Consults [RC] ASDIRECTED Consult to Physician [CONS] Routine 06/24/19 Lunch Clear Liquid Diet [DIET] 06/26/19 05:11 CBC WITH AUTO DIFF [HEME] AM COMPREHENSIVE METABOLIC PN,CMP [CHEM] AM - Plan Plan:: 69 yo male admitted for left lower extremity cellulitis. 1. L lower extremity cellulitis - Continue with Vancomycin. - Repeat BC negative x 2 days. Staph epi in 1/4 bottles consider contaminated sample. - Elevate leg as much as possible to limit further edema 2. Acute cholecystitis: - RUQ pain much improved - Consult Dr Farrell - Stop Zosyn due to acute rise in BUN/Cr, switch to Cipro and Flagyl. - Protonix - Low fat diet today. 3. HTN: - Stable, monitor 4. DM type 2: - Monitor BS TIDAC, with Novolog SSI 5. KHADRA: - Give 1 L slowly today. Monitor labwork in am. Diet: ADA Code Status: Full code VTE prophylaxis: Heparin Dispo: possible DC in am
--- NOTE | 2019-06-25 09:10 | PCM.CONSN ---
- General Info Date of Service: 06/25/19 Subjective Update: Patient had one dose of morphine last night. His abdomen feels better this morning. Tolerating a clear liquid diet without issues. Afebrile with stable VS last night. Functional Status: Reports: Pain Controlled, Tolerating Diet, Urinating. Denies : New Symptoms - Review of Systems General: Reports: No Symptoms HEENT: Reports: No Symptoms Pulmonary: Reports: No Symptoms Cardiovascular: Reports: No Symptoms Gastrointestinal: Reports: No Symptoms - Patient Data Vitals - Most Recent: Last Vital Signs Temp 36.9 C 06/25/19 04:00 Pulse 91 06/25/19 04:00 Resp 20 06/25/19 04:00 BP 131/65 06/25/19 04:00 Pulse Ox 93 L 06/25/19 04:00 Weight - Most Recent: 147.735 kg I&O - Last 24 Hours: Intake & Output 06/24/19 06/25/19 06/25/19 22:59 06:59 14:59 Intake Total 1160 1070 Output Total 850 Balance 1160 220 Lab Results Last 24 Hours: Laboratory Results - last 24 hr 06/24/19 06/24/19 06/24/19 Range/Units 12:18 12:33 13:09 WBC (4.0-11.0) K/uL RBC (4.50-5.90) M/uL Hgb (13.0-17.0) g/dL Hct (38.0-50.0) % MCV (80.0-98.0) fL MCH (27.0-32.0) pg MCHC (31.0-37.0) g/dL RDW Std Deviation (28.0-62.0) fl RDW Coeff of Letty (11.0-15.0) % Plt Count (150-400) K/uL MPV (7.40-12.00) fL Add Manual Diff Neutrophils % (Manual) (48.0-80.0) % Band Neutrophils % % Lymphocytes % (Manual) (16.0-40.0) % Monocytes % (Manual) (0.0-15.0) % Eosinophils % (Manual) (0.0-7.0) % Basophils % (Manual) (0.0-1.5) % Nucleated RBC % /100WBC Absolute Seg Neuts (1.4-5.7) Band Neutrophils # Lymphocytes # (Manual) (0.6-2.4) Monocytes # (Manual) (0.0-0.8) Eosinophils # (Manual) (0.0-0.7) Basophils # (Manual) (0.0-0.1) Nucleated RBCs # K/uL Sodium (136-148) mmol/L Potassium (3.5-5.1) mmol/L Chloride (98-107) mmol/L Carbon Dioxide (21.0-32.0) mmol/L BUN (7.0-18.0) mg/dL Creatinine (0.8-1.3) mg/dL Est Cr Clr Drug Dosing mL/min Estimated GFR (MDRD) ml/min Glucose (74-106) mg/dL POC Glucose 153 H 128 H (60-110) mg/dL Calcium (8.5-10.1) mg/dL Total Bilirubin (0.2-1.0) mg/dL AST (15-37) IU/L ALT (14-63) IU/L Alkaline Phosphatase (46-116) U/L Total Protein (6.4-8.2) g/dL Albumin (3.4-5.0) g/dL Globulin (2.6-4.0) g/dL Albumin/Globulin Ratio (0.9-1.6) Vancomycin Trough 15.1 H (5.0-10.0) ug/mL 06/24/19 06/25/19 06/25/19 Range/Units 16:15 06:14 06:36 WBC 9.72 (4.0-11.0) K/uL RBC 5.15 (4.50-5.90) M/uL Hgb 13.4 (13.0-17.0) g/dL Hct 41.9 (38.0-50.0) % MCV 81.4 (80.0-98.0) fL MCH 26.0 L (27.0-32.0) pg MCHC 32.0 (31.0-37.0) g/dL RDW Std Deviation 50.7 (28.0-62.0) fl RDW Coeff of Letty 17 H (11.0-15.0) % Plt Count 290 (150-400) K/uL MPV 10.10 (7.40-12.00) fL Add Manual Diff YES Neutrophils % (Manual) 68 (48.0-80.0) % Band Neutrophils % 7 % Lymphocytes % (Manual) 11 L (16.0-40.0) % Monocytes % (Manual) 11 (0.0-15.0) % Eosinophils % (Manual) 2 (0.0-7.0) % Basophils % (Manual) 1 (0.0-1.5) % Nucleated RBC % 0.0 /100WBC Absolute Seg Neuts 6.6 H (1.4-5.7) Band Neutrophils # 0.7 Lymphocytes # (Manual) 1.1 (0.6-2.4) Monocytes # (Manual) 1.1 H (0.0-0.8) Eosinophils # (Manual) 0.2 (0.0-0.7) Basophils # (Manual) 0.1 (0.0-0.1) Nucleated RBCs # 0 K/uL Sodium (136-148) mmol/L Potassium (3.5-5.1) mmol/L Chloride (98-107) mmol/L Carbon Dioxide (21.0-32.0) mmol/L BUN (7.0-18.0) mg/dL Creatinine (0.8-1.3) mg/dL Est Cr Clr Drug Dosing mL/min Estimated GFR (MDRD) ml/min Glucose (74-106) mg/dL POC Glucose 142 H 137 H (60-110) mg/dL Calcium (8.5-10.1) mg/dL Total Bilirubin (0.2-1.0) mg/dL AST (15-37) IU/L ALT (14-63) IU/L Alkaline Phosphatase (46-116) U/L Total Protein (6.4-8.2) g/dL Albumin (3.4-5.0) g/dL Globulin (2.6-4.0) g/dL Albumin/Globulin Ratio (0.9-1.6) Vancomycin Trough (5.0-10.0) ug/mL 06/25/19 Range/Units 07:25 WBC (4.0-11.0) K/uL RBC (4.50-5.90) M/uL Hgb (13.0-17.0) g/dL Hct (38.0-50.0) % MCV (80.0-98.0) fL MCH (27.0-32.0) pg MCHC (31.0-37.0) g/dL RDW Std Deviation (28.0-62.0) fl RDW Coeff of Letty (11.0-15.0) % Plt Count (150-400) K/uL MPV (7.40-12.00) fL Add Manual Diff Neutrophils % (Manual) (48.0-80.0) % Band Neutrophils % % Lymphocytes % (Manual) (16.0-40.0) % Monocytes % (Manual) (0.0-15.0) % Eosinophils % (Manual) (0.0-7.0) % Basophils % (Manual) (0.0-1.5) % Nucleated RBC % /100WBC Absolute Seg Neuts (1.4-5.7) Band Neutrophils # Lymphocytes # (Manual) (0.6-2.4) Monocytes # (Manual) (0.0-0.8) Eosinophils # (Manual) (0.0-0.7) Basophils # (Manual) (0.0-0.1) Nucleated RBCs # K/uL Sodium 139 (136-148) mmol/L Potassium 4.5 (3.5-5.1) mmol/L Chloride 104 (98-107) mmol/L Carbon Dioxide 28.1 (21.0-32.0) mmol/L BUN 23 H (7.0-18.0) mg/dL Creatinine 1.4 H (0.8-1.3) mg/dL Est Cr Clr Drug Dosing 48.40 mL/min Estimated GFR (MDRD) 50.0 ml/min Glucose 165 H (74-106) mg/dL POC Glucose (60-110) mg/dL Calcium 8.7 (8.5-10.1) mg/dL Total Bilirubin 0.8 (0.2-1.0) mg/dL AST 36 (15-37) IU/L ALT 45 (14-63) IU/L Alkaline Phosphatase 104 (46-116) U/L Total Protein 6.4 (6.4-8.2) g/dL Albumin 2.0 L (3.4-5.0) g/dL Globulin 4.4 H (2.6-4.0) g/dL Albumin/Globulin Ratio 0.5 L (0.9-1.6) Vancomycin Trough (5.0-10.0) ug/mL Can Results Last 24 Hours: Microbiology 06/21/19 20:25 Aerobic Blood Culture - Preliminary Blood - Venous - Lab Draw NO GROWTH AFTER 3 DAYS Anaerobic Blood Culture - Preliminary NO GROWTH AFTER 3 DAYS 06/23/19 14:29 Aerobic Blood Culture - Preliminary Blood - Venous - Lab Draw NO GROWTH AFTER 1 DAY Anaerobic Blood Culture - Preliminary NO GROWTH AFTER 1 DAY 06/23/19 14:14 Aerobic Blood Culture - Preliminary Blood - Venous NO GROWTH AFTER 1 DAY Anaerobic Blood Culture - Preliminary NO GROWTH AFTER 1 DAY 06/21/19 20:00 Aerobic Blood Culture - Final Blood - Venous Staphylococcus Epidermidis Anaerobic Blood Culture - Preliminary Med Orders - Current: Current Medications Acetaminophen (Tylenol) 650 mg PO Q6H PRN PRN Reason: Pain Last Admin: 06/23/19 01:09 Dose: 650 mg Atorvastatin Calcium (Lipitor) 20 mg PO DAILY [facility] Last Admin: 06/25/19 09:05 Dose: 20 mg Calcium Carbonate/Glycine (Tums) 500 mg PO TID PRN PRN Reason: Indigestion Last Admin: 06/22/19 23:42 Dose: 500 mg Heparin Sodium (Porcine) (Heparin Sodium) 5,000 units SUBCUT Q8H [facility] Last Admin: 06/25/19 00:35 Dose: 5,000 units Vancomycin HCl 2 gm/ Sodium (Chloride) 500 mls @ 333.333 mls/hr IV Q12H [facility] Last Admin: 06/25/19 00:40 Dose: 333.333 mls/hr Insulin Aspart (Novolog) 0 unit SUBCUT TIDAC [facility]; Protocol Last Admin: 06/25/19 06:37 Dose: Not Given Morphine Sulfate (Morphine) 2 mg IVPUSH Q2H PRN PRN Reason: Pain Last Admin: 06/24/19 19:06 Dose: 2 mg Pantoprazole Sodium (Protonix) 40 mg PO ACBREAKFAST [facility] Last Admin: 06/25/19 06:34 Dose: 40 mg Vancomycin HCl (Pharmacy To Dose - Vancomycin) 1 dose .XX ASDIRECTED [facility] Discontinued Medications Atorvastatin Calcium (Lipitor) 20 mg PO DAILY [facility] Al Hydroxide/Mg Hydroxide 15 (ml/ Lidocaine HCl 5 ml) 0 ml PO ONETIME ONE Stop: 06/23/19 08:31 Last Admin: 06/23/19 09:28 Dose: 1 each Sodium Chloride (Normal Saline) 1,000 mls @ 1,000 mls/hr IV .Bolus ONE Stop: 06/21/19 20:43 Last Admin: 06/21/19 20:10 Dose: 1,000 mls/hr Piperacillin Sod/Tazobactam (Sod 4.5 gm/ Sodium Chloride) 100 mls @ 100 mls/hr IV ONETIME ONE Stop: 06/21/19 21:33 Last Admin: 06/21/19 20:46 Dose: 100 mls/hr Sodium Chloride (Normal Saline) 1,000 mls @ 1,000 mls/hr IV .Bolus ONE Stop: 06/21/19 21:34 Last Admin: 06/21/19 20:54 Dose: 1,000 mls/hr Sodium Chloride (Normal Saline) 1,000 mls @ 1,000 mls/hr IV .Bolus ONE Stop: 06/21/19 21:35 Last Admin: 06/21/19 22:07 Dose: 1,000 mls/hr Vancomycin HCl 1.25 gm/ Sodium (Chloride) 250 mls @ 167 mls/hr IV ONETIME ONE Stop: 06/22/19 00:09 Last Admin: 06/21/19 23:31 Dose: 167 mls/hr Vancomycin HCl 0.75 gm/ Sodium (Chloride) 250 mls @ 166.667 mls/hr IV ONETIME ONE Stop: 06/22/19 03:59 Last Admin: 06/22/19 03:44 Dose: 166.667 mls/hr Vancomycin HCl 2 gm/ Sodium (Chloride) 500 mls @ 333.333 mls/hr IV Q24H [facility] Last Admin: 06/23/19 00:17 Dose: 333.333 mls/hr Pantoprazole Sodium 40 mg/ (Sodium Chloride) 10 mls @ 300 mls/hr IV NOW ONE Stop: 06/23/19 11:18 Last Admin: 06/23/19 11:49 Dose: 300 mls/hr Pantoprazole Sodium 40 mg/ (Sodium Chloride) 10 mls @ 300 mls/hr IV NOW ONE Stop: 06/23/19 21:14 Last Admin: 06/23/19 21:34 Dose: 300 mls/hr Piperacillin Sod/Tazobactam (Sod 3.375 gm/ Sodium Chloride) 50 mls @ 100 mls/ hr IV Q6H [facility] Last Admin: 06/24/19 01:38 Dose: Not Given Piperacillin Sod/Tazobactam (Sod 3.375 gm/ Sodium Chloride) 50 mls @ 100 mls/ hr IV Q6H [facility] Last Admin: 06/25/19 02:16 Dose: 100 mls/hr Metformin HCl (Glucophage) 1,000 mg PO BIDMEALS [facility] Last Admin: 06/24/19 08:17 Dose: 1,000 mg Metformin 1000 Mg (Tab) 1 each PO BIDMEALS [facility] Last Admin: 06/23/19 09:43 Dose: Not Given Atorvastatin 20 Mg (Tab) 1 each PO DAILY [facility] Last Admin: 06/22/19 09:06 Dose: 1 each - Exam General: Alert, Oriented, Cooperative HEENT: Pupils Equal Lungs: Normal Respiratory Effort Cardiovascular: Regular Rate GI/Abdominal Exam: Soft, Non-Tender, No Distention, No Mass Sepsis Event Note - Evaluation Sepsis Screening Result: No Definite Risk - Focused Exam Vital Signs: Vital Signs Temp Pulse Resp BP Pulse Ox 06/25/19 04:00 36.9 C 91 20 131/65 93 L 06/25/19 00:41 37.3 C 89 20 125/61 92 L Date Exam was Performed: 06/25/19 Time Exam was Performed: 09:06 Consult PN Assessment/Plan Procedures: Procedures X-RAY EXAM OF KNEE 1 OR 2 (11/05/15) (1) RUQ abdominal pain SNOMED Code(s): 316810270 Code(s): R10.11 - RIGHT UPPER QUADRANT PAIN Current Visit: Yes (2) Cellulitis SNOMED Code(s): 322260901 Code(s): L03.90 - CELLULITIS, UNSPECIFIED Current Visit: Yes Qualifiers: Qualified Code(s): L03.116 - Cellulitis of left lower limb Problem List Initiated/Reviewed/Updated: Yes Plan: The patient's abdomen feels better this am and he subjectively feels better. His WBC is normal and there is no left shift. His LFTs are normal. Can advance diet today. If pain returns can attempt a repeat US of RUQ or MRCP for more detail. Otherwise follow up in my clinic in 2-4 weeks. Will sign off at this time. Call if there are any concerns or questions.
[2019-06-25] MEDS: Ciprofloxacin in D5W 400 MG in Premix Bag 1 BAG IV SCH ×4 (10:22→21:13)
[2019-06-25] MEDS ORDERED: Sodium Chloride 0.9% 1,000 ML IV SCH (11:15)
[2019-06-25] MEDS: metroNIDAZOLE/Normal Saline 500 MG in Premix Bag 1 BAG IV SCH ×2 (12:40→18:46)
[2019-06-26] MEDS: metroNIDAZOLE/Normal Saline 500 MG in Premix Bag 1 BAG IV SCH ×2 (00:40→06:27)
[2019-06-26] MEDS: Vancomycin 2 GM in Sodium Chloride 0.9% 500 ML IV SCH (01:59)
[2019-06-26] MEDS: Heparin Sodium 5,000 Units/ML Vial SUBCUT SCH ×3 (02:01→16:34)
[2019-06-26 06:28] LABS: CARBON DIOXIDE,CO2 25.7 mmol/L (21.0-32.0); POTASSIUM,K 3.9 mmol/L (3.5-5.1)
[2019-06-26] MEDS: Pantoprazole 40 MG Tab.CR PO SCH (06:31)
[2019-06-26] MEDS: Insulin Aspart 100 Units/ML 3 ML Pen SUBCUT SCH ×3 (07:44→16:46)
[2019-06-26] MEDS: atorvaSTATin 20 MG Tab PO SCH (08:50)
[2019-06-26] MEDS: Ciprofloxacin in D5W 400 MG in Premix Bag 1 BAG IV SCH ×2 (09:08)
[2019-06-26] MEDS ORDERED: Clindamycin HCl 150 MG Cap PO SCH (09:15)
[2019-06-26] MEDS ORDERED: Sodium Chloride 0.9% 1,000 ML IV ONE (09:16)
--- NOTE | 2019-06-26 10:08 | PCM.PN ---
- General Info Date of Service: 06/26/19 - Review of Systems Systems Review Comment:: feeling better - Patient Data Vitals - Most Recent: Last Vital Signs Temp 36.7 C 06/26/19 08:00 Pulse 86 06/26/19 08:00 Resp 20 06/26/19 08:00 BP 126/64 06/26/19 08:00 Pulse Ox 95 06/26/19 08:00 Weight - Most Recent: 147.735 kg I&O - Last 24 Hours: Intake & Output 06/25/19 06/26/19 06/26/19 22:59 06:59 14:59 Intake Total 500 1860 100 Output Total 600 750 Balance -100 1110 100 Lab Results Last 24 Hours: Laboratory Results - last 24 hr 06/25/19 06/25/19 06/26/19 Range/Units 11:48 17:51 05:34 WBC 12.45 H (4.0-11.0) K/uL RBC 4.76 (4.50-5.90) M/uL Hgb 11.9 L (13.0-17.0) g/dL Hct 39.2 (38.0-50.0) % MCV 82.4 (80.0-98.0) fL MCH 25.0 L (27.0-32.0) pg MCHC 30.4 L (31.0-37.0) g/dL RDW Std Deviation 50.3 (28.0-62.0) fl RDW Coeff of Letty 17 H (11.0-15.0) % Plt Count 329 (150-400) K/uL MPV 9.20 (7.40-12.00) fL Add Manual Diff YES Neutrophils % (Manual) 78 (48.0-80.0) % Band Neutrophils % 8 % Lymphocytes % (Manual) 8 L (16.0-40.0) % Monocytes % (Manual) 5 (0.0-15.0) % Eosinophils % (Manual) 1 (0.0-7.0) % Nucleated RBC % 0.0 /100WBC Absolute Seg Neuts 9.7 H (1.4-5.7) Band Neutrophils # 1.0 Lymphocytes # (Manual) 1.0 (0.6-2.4) Monocytes # (Manual) 0.6 (0.0-0.8) Eosinophils # (Manual) 0.1 (0.0-0.7) Nucleated RBCs # 0 K/uL Sodium (136-148) mmol/L Potassium (3.5-5.1) mmol/L Chloride (98-107) mmol/L Carbon Dioxide (21.0-32.0) mmol/L BUN (7.0-18.0) mg/dL Creatinine (0.8-1.3) mg/dL Est Cr Clr Drug Dosing mL/min Estimated GFR (MDRD) ml/min Glucose (74-106) mg/dL POC Glucose 150 H 128 H (60-110) mg/dL Calcium (8.5-10.1) mg/dL Total Bilirubin (0.2-1.0) mg/dL AST (15-37) IU/L ALT (14-63) IU/L Alkaline Phosphatase (46-116) U/L Total Protein (6.4-8.2) g/dL Albumin (3.4-5.0) g/dL Globulin (2.6-4.0) g/dL Albumin/Globulin Ratio (0.9-1.6) 06/26/19 06/26/19 Range/Units 05:34 06:32 WBC (4.0-11.0) K/uL RBC (4.50-5.90) M/uL Hgb (13.0-17.0) g/dL Hct (38.0-50.0) % MCV (80.0-98.0) fL MCH (27.0-32.0) pg MCHC (31.0-37.0) g/dL RDW Std Deviation (28.0-62.0) fl RDW Coeff of Letty (11.0-15.0) % Plt Count (150-400) K/uL MPV (7.40-12.00) fL Add Manual Diff Neutrophils % (Manual) (48.0-80.0) % Band Neutrophils % % Lymphocytes % (Manual) (16.0-40.0) % Monocytes % (Manual) (0.0-15.0) % Eosinophils % (Manual) (0.0-7.0) % Nucleated RBC % /100WBC Absolute Seg Neuts (1.4-5.7) Band Neutrophils # Lymphocytes # (Manual) (0.6-2.4) Monocytes # (Manual) (0.0-0.8) Eosinophils # (Manual) (0.0-0.7) Nucleated RBCs # K/uL Sodium 138 (136-148) mmol/L Potassium 3.9 (3.5-5.1) mmol/L Chloride 103 (98-107) mmol/L Carbon Dioxide 25.7 (21.0-32.0) mmol/L BUN 30 H (7.0-18.0) mg/dL Creatinine 1.9 H (0.8-1.3) mg/dL Est Cr Clr Drug Dosing 35.66 mL/min Estimated GFR (MDRD) 35.1 ml/min Glucose 146 H (74-106) mg/dL POC Glucose 131 H (60-110) mg/dL Calcium 8.6 (8.5-10.1) mg/dL Total Bilirubin 0.6 (0.2-1.0) mg/dL AST 32 (15-37) IU/L ALT 47 (14-63) IU/L Alkaline Phosphatase 98 (46-116) U/L Total Protein 6.1 L (6.4-8.2) g/dL Albumin 1.8 L (3.4-5.0) g/dL Globulin 4.3 H (2.6-4.0) g/dL Albumin/Globulin Ratio 0.4 L (0.9-1.6) Can Results Last 24 Hours: Microbiology 06/21/19 20:25 Aerobic Blood Culture - Preliminary Blood - Venous - Lab Draw NO GROWTH AFTER 4 DAYS Anaerobic Blood Culture - Preliminary NO GROWTH AFTER 4 DAYS 06/23/19 14:29 Aerobic Blood Culture - Preliminary Blood - Venous - Lab Draw NO GROWTH AFTER 2 DAYS Anaerobic Blood Culture - Preliminary NO GROWTH AFTER 2 DAYS 06/23/19 14:14 Aerobic Blood Culture - Preliminary Blood - Venous NO GROWTH AFTER 2 DAYS Anaerobic Blood Culture - Preliminary NO GROWTH AFTER 2 DAYS Med Orders - Current: Current Medications Acetaminophen (Tylenol) 650 mg PO Q6H PRN PRN Reason: Pain Last Admin: 06/23/19 01:09 Dose: 650 mg Atorvastatin Calcium (Lipitor) 20 mg PO DAILY [facility] Last Admin: 06/26/19 08:50 Dose: 20 mg Calcium Carbonate/Glycine (Tums) 500 mg PO TID PRN PRN Reason: Indigestion Last Admin: 06/22/19 23:42 Dose: 500 mg Ciprofloxacin (Ciprofloxacin Hcl) 500 mg PO BID [facility] Clindamycin HCl (Cleocin) 300 mg PO Q6H [facility] Heparin Sodium (Porcine) (Heparin Sodium) 5,000 units SUBCUT Q8H [facility] Last Admin: 06/26/19 08:48 Dose: 5,000 units Sodium Chloride (Normal Saline) 1,000 mls @ 125 mls/hr IV STAT ONE Stop: 06/26/19 17:15 Insulin Aspart (Novolog) 0 unit SUBCUT TIDAC [facility]; Protocol Last Admin: 06/26/19 07:44 Dose: Not Given Metronidazole (Metronidazole) 500 mg PO Q6H [facility] Morphine Sulfate (Morphine) 2 mg IVPUSH Q2H PRN PRN Reason: Pain Last Admin: 06/24/19 19:06 Dose: 2 mg Pantoprazole Sodium (Protonix) 40 mg PO ACBREAKFAST [facility] Last Admin: 06/26/19 06:31 Dose: 40 mg Discontinued Medications Atorvastatin Calcium (Lipitor) 20 mg PO DAILY [facility] Clindamycin HCl (Cleocin) 300 mg PO Q6H [facility] Al Hydroxide/Mg Hydroxide 15 (ml/ Lidocaine HCl 5 ml) 0 ml PO ONETIME ONE Stop: 06/23/19 08:31 Last Admin: 06/23/19 09:28 Dose: 1 each Sodium Chloride (Normal Saline) 1,000 mls @ 1,000 mls/hr IV .Bolus ONE Stop: 06/21/19 20:43 Last Admin: 06/21/19 20:10 Dose: 1,000 mls/hr Piperacillin Sod/Tazobactam (Sod 4.5 gm/ Sodium Chloride) 100 mls @ 100 mls/hr IV ONETIME ONE Stop: 06/21/19 21:33 Last Admin: 06/21/19 20:46 Dose: 100 mls/hr Sodium Chloride (Normal Saline) 1,000 mls @ 1,000 mls/hr IV .Bolus ONE Stop: 06/21/19 21:34 Last Admin: 06/21/19 20:54 Dose: 1,000 mls/hr Sodium Chloride (Normal Saline) 1,000 mls @ 1,000 mls/hr IV .Bolus ONE Stop: 06/21/19 21:35 Last Admin: 06/21/19 22:07 Dose: 1,000 mls/hr Vancomycin HCl 1.25 gm/ Sodium (Chloride) 250 mls @ 167 mls/hr IV ONETIME ONE Stop: 06/22/19 00:09 Last Admin: 06/21/19 23:31 Dose: 167 mls/hr Vancomycin HCl 0.75 gm/ Sodium (Chloride) 250 mls @ 166.667 mls/hr IV ONETIME ONE Stop: 06/22/19 03:59 Last Admin: 06/22/19 03:44 Dose: 166.667 mls/hr Vancomycin HCl 2 gm/ Sodium (Chloride) 500 mls @ 333.333 mls/hr IV Q24H [facility] Last Admin: 06/23/19 00:17 Dose: 333.333 mls/hr Vancomycin HCl 2 gm/ Sodium (Chloride) 500 mls @ 333.333 mls/hr IV Q12H [facility] Last Admin: 06/26/19 01:59 Dose: 333.333 mls/hr Pantoprazole Sodium 40 mg/ (Sodium Chloride) 10 mls @ 300 mls/hr IV NOW ONE Stop: 06/23/19 11:18 Last Admin: 06/23/19 11:49 Dose: 300 mls/hr Pantoprazole Sodium 40 mg/ (Sodium Chloride) 10 mls @ 300 mls/hr IV NOW ONE Stop: 06/23/19 21:14 Last Admin: 06/23/19 21:34 Dose: 300 mls/hr Piperacillin Sod/Tazobactam (Sod 3.375 gm/ Sodium Chloride) 50 mls @ 100 mls/ hr IV Q6H [facility] Last Admin: 06/24/19 01:38 Dose: Not Given Piperacillin Sod/Tazobactam (Sod 3.375 gm/ Sodium Chloride) 50 mls @ 100 mls/ hr IV Q6H [facility] Last Admin: 06/25/19 09:11 Dose: Not Given Ciprofloxacin/Dextrose 400 mg/ (Premix) 200 mls @ 200 mls/hr IV Q12H [facility] Last Admin: 06/26/19 09:08 Dose: 200 mls/hr Metronidazole 500 mg/ Premix 100 mls @ 100 mls/hr IV QID [facility] Last Admin: 06/26/19 06:27 Dose: 90 mls/hr Sodium Chloride (Normal Saline) 1,000 mls @ 100 mls/hr IV ASDIRECTED [facility] Stop: 06/25/19 21:14 Metformin HCl (Glucophage) 1,000 mg PO BIDMEALS [facility] Last Admin: 06/24/19 08:17 Dose: 1,000 mg Metformin 1000 Mg (Tab) 1 each PO BIDMEALS [facility] Last Admin: 06/23/19 09:43 Dose: Not Given Atorvastatin 20 Mg (Tab) 1 each PO DAILY [facility] Last Admin: 06/22/19 09:06 Dose: 1 each Vancomycin HCl (Pharmacy To Dose - Vancomycin) 1 dose .XX ASDIRECTED [facility] - Exam General: Alert, Oriented Lungs: Clear to Auscultation, Normal Respiratory Effort Cardiovascular: Regular Rate, Regular Rhythm GI/Abdominal Exam: Soft, Non-Tender Extremities: Other (erythema of lower leg starting below the knee to the ankle, no effusions, or drainage noted) Sepsis Event Note - Evaluation Sepsis Screening Result: No Definite Risk - Focused Exam Vital Signs: Vital Signs Temp Pulse Resp BP Pulse Ox 06/26/19 08:00 36.7 C 86 20 126/64 95 06/26/19 04:00 36.4 C 82 16 138/65 94 L 06/25/19 23:43 37.1 C 91 16 138/66 92 L Date Exam was Performed: 06/26/19 Time Exam was Performed: 10:03 - Problem List Review Problem List Initiated/Reviewed/Updated: Yes - My Orders Last 24 Hours: My Active Orders 06/26/19 10:03 Bladder Scan [RC] ASDIRECTED - Plan Plan:: 69 yo male admitted for left lower extremity cellulitis. 1. L lower extremity cellulitis - Will stop vancomycin and start clindamycin 2. Acute cholecystitis: - RUQ pain much improved - Consult Dr Farrell - continue Cipro and Flagyl. - Protonix - Low fat diet today. 3. KHADRA: - creatinine 1.9 today, will stop vancomycin, gentle hydration and check bladder scan. avoiding nephrotoxic medications Diet: ADA Code Status: Full code VTE prophylaxis: Heparin Dispo: possible DC in am
[2019-06-26] MEDS: metroNIDAZOLE 250 MG Tab PO SCH ×3 (11:13→22:04)
[2019-06-26] MEDS ORDERED: Ciprofloxacin 500 MG Tab PO SCH (21:00)
[2019-06-27] MEDS: Heparin Sodium 5,000 Units/ML Vial SUBCUT SCH ×3 (03:27→17:35)
[2019-06-27] MEDS: metroNIDAZOLE 250 MG Tab PO SCH ×4 (03:27→20:49)
[2019-06-27 05:27] LABS: CARBON DIOXIDE,CO2 23.4 mmol/L (21.0-32.0); POTASSIUM,K 3.6 mmol/L (3.5-5.1)
[2019-06-27] MEDS: Pantoprazole 40 MG Tab.CR PO SCH (06:51)
[2019-06-27] MEDS: Insulin Aspart 100 Units/ML 3 ML Pen SUBCUT SCH ×3 (06:52→18:01)
--- NOTE | 2019-06-27 08:37 | PCM.PN ---
- General Info Date of Service: 06/27/19 Admission Dx/Problem (Free Text): Admission Diagnosis/Problem Admission Diagnosis/Problem Cellulitis of left lower leg Subjective Update: Feeling good this morning, no abdominal pain, no chest pain. Eating and drinking well. Feels leg is improving. Pain continues to improve. Ambulating well. Functional Status: Reports: Pain Controlled, Tolerating Diet, Ambulating, Urinating - Review of Systems General: Reports: No Symptoms HEENT: Reports: No Symptoms Pulmonary: Reports: No Symptoms. Denies: Shortness of Breath Cardiovascular: Reports: No Symptoms. Denies: Chest Pain Gastrointestinal: Reports: No Symptoms. Denies: Abdominal Pain, Nausea, Vomiting Genitourinary: Reports: No Symptoms. Denies: Dysuria, Frequency Skin: Reports: Dryness, Other (redness improving) Neurological: Reports: No Symptoms Psychiatric: Reports: No Symptoms - Patient Data Vitals - Most Recent: Last Vital Signs Temp 97.2 F 06/27/19 07:10 Pulse 85 06/27/19 07:10 Resp 16 06/27/19 07:10 BP 122/55 L 06/27/19 07:10 Pulse Ox 94 L 06/27/19 07:10 Weight - Most Recent: 147.735 kg I&O - Last 24 Hours: Intake & Output 06/26/19 06/27/19 06/27/19 22:59 06:59 14:59 Intake Total 2487 500 Output Total 1600 1000 Balance 887 -500 Lab Results Last 24 Hours: Laboratory Results - last 24 hr 06/26/19 06/26/19 06/27/19 Range/Units 11:53 16:45 04:43 WBC 11.74 H (4.0-11.0) K/uL RBC 4.65 (4.50-5.90) M/uL Hgb 11.7 L (13.0-17.0) g/dL Hct 37.9 L (38.0-50.0) % MCV 81.5 (80.0-98.0) fL MCH 25.2 L (27.0-32.0) pg MCHC 30.9 L (31.0-37.0) g/dL RDW Std Deviation 50.1 (28.0-62.0) fl RDW Coeff of Letty 17 H (11.0-15.0) % Plt Count 357 (150-400) K/uL MPV 8.80 (7.40-12.00) fL Neut % (Auto) 81.9 H (48.0-80.0) % Lymph % (Auto) 3.9 L (16.0-40.0) % [place] % (Auto) 11.9 (0.0-15.0) % Eos % (Auto) 2.1 (0.0-7.0) % Baso % (Auto) 0.2 (0.0-1.5) % Neut # (Auto) 9.6 H (1.4-5.7) K/uL Lymph # (Auto) 0.5 L (0.6-2.4) K/uL [place] # (Auto) 1.4 H (0.0-0.8) K/uL Eos # (Auto) 0.3 (0.0-0.7) K/uL Baso # (Auto) 0.0 (0.0-0.1) K/uL Nucleated RBC % 0.0 /100WBC Nucleated RBCs # 0 K/uL Sodium (136-148) mmol/L Potassium (3.5-5.1) mmol/L Chloride (98-107) mmol/L Carbon Dioxide (21.0-32.0) mmol/L BUN (7.0-18.0) mg/dL Creatinine (0.8-1.3) mg/dL Est Cr Clr Drug Dosing mL/min Estimated GFR (MDRD) ml/min Glucose (74-106) mg/dL POC Glucose 172 H 130 H (60-110) mg/dL Calcium (8.5-10.1) mg/dL 06/27/19 06/27/19 Range/Units 04:43 06:39 WBC (4.0-11.0) K/uL RBC (4.50-5.90) M/uL Hgb (13.0-17.0) g/dL Hct (38.0-50.0) % MCV (80.0-98.0) fL MCH (27.0-32.0) pg MCHC (31.0-37.0) g/dL RDW Std Deviation (28.0-62.0) fl RDW Coeff of Letty (11.0-15.0) % Plt Count (150-400) K/uL MPV (7.40-12.00) fL Neut % (Auto) (48.0-80.0) % Lymph % (Auto) (16.0-40.0) % [place] % (Auto) (0.0-15.0) % Eos % (Auto) (0.0-7.0) % Baso % (Auto) (0.0-1.5) % Neut # (Auto) (1.4-5.7) K/uL Lymph # (Auto) (0.6-2.4) K/uL [place] # (Auto) (0.0-0.8) K/uL Eos # (Auto) (0.0-0.7) K/uL Baso # (Auto) (0.0-0.1) K/uL Nucleated RBC % /100WBC Nucleated RBCs # K/uL Sodium 140 (136-148) mmol/L Potassium 3.6 (3.5-5.1) mmol/L Chloride 106 (98-107) mmol/L Carbon Dioxide 23.4 (21.0-32.0) mmol/L BUN 35 H (7.0-18.0) mg/dL Creatinine 2.6 H (0.8-1.3) mg/dL Est Cr Clr Drug Dosing 26.06 mL/min Estimated GFR (MDRD) 24.5 ml/min Glucose 143 H (74-106) mg/dL POC Glucose 141 H (60-110) mg/dL Calcium 8.4 L (8.5-10.1) mg/dL Can Results Last 24 Hours: Microbiology 06/21/19 20:25 Aerobic Blood Culture - Final Blood - Venous - Lab Draw NO GROWTH AFTER 5 DAYS Anaerobic Blood Culture - Final NO GROWTH AFTER 5 DAYS 06/23/19 14:29 Aerobic Blood Culture - Preliminary Blood - Venous - Lab Draw NO GROWTH AFTER 3 DAYS Anaerobic Blood Culture - Preliminary NO GROWTH AFTER 3 DAYS 06/23/19 14:14 Aerobic Blood Culture - Preliminary Blood - Venous NO GROWTH AFTER 3 DAYS Anaerobic Blood Culture - Preliminary NO GROWTH AFTER 3 DAYS Med Orders - Current: Current Medications Acetaminophen (Tylenol) 650 mg PO Q6H PRN PRN Reason: Pain Last Admin: 06/23/19 01:09 Dose: 650 mg Atorvastatin Calcium (Lipitor) 20 mg PO DAILY [facility] Last Admin: 06/26/19 08:50 Dose: 20 mg Calcium Carbonate/Glycine (Tums) 500 mg PO TID PRN PRN Reason: Indigestion Last Admin: 06/22/19 23:42 Dose: 500 mg Ciprofloxacin (Ciprofloxacin Hcl) 500 mg PO Q18H [facility] Clindamycin HCl (Cleocin) 300 mg PO Q6H [facility] Heparin Sodium (Porcine) (Heparin Sodium) 5,000 units SUBCUT Q8H [facility] Last Admin: 06/27/19 03:27 Dose: 5,000 units Sodium Chloride (Normal Saline) 1,000 mls @ 100 mls/hr IV Q10H [facility] Insulin Aspart (Novolog) 0 unit SUBCUT TIDAC [facility]; Protocol Last Admin: 06/27/19 06:52 Dose: Not Given Metronidazole (Metronidazole) 500 mg PO Q6H [facility] Last Admin: 06/27/19 03:27 Dose: 500 mg Morphine Sulfate (Morphine) 2 mg IVPUSH Q2H PRN PRN Reason: Pain Last Admin: 06/24/19 19:06 Dose: 2 mg Pantoprazole Sodium (Protonix) 40 mg PO ACBREAKFAST [facility] Last Admin: 06/27/19 06:51 Dose: 40 mg Discontinued Medications Atorvastatin Calcium (Lipitor) 20 mg PO DAILY [facility] Ciprofloxacin (Ciprofloxacin Hcl) 500 mg PO BID [facility] Last Admin: 06/26/19 22:05 Dose: 500 mg Clindamycin HCl (Cleocin) 300 mg PO Q6H [facility] Al Hydroxide/Mg Hydroxide 15 (ml/ Lidocaine HCl 5 ml) 0 ml PO ONETIME ONE Stop: 06/23/19 08:31 Last Admin: 06/23/19 09:28 Dose: 1 each Sodium Chloride (Normal Saline) 1,000 mls @ 1,000 mls/hr IV .Bolus ONE Stop: 06/21/19 20:43 Last Admin: 06/21/19 20:10 Dose: 1,000 mls/hr Piperacillin Sod/Tazobactam (Sod 4.5 gm/ Sodium Chloride) 100 mls @ 100 mls/hr IV ONETIME ONE Stop: 06/21/19 21:33 Last Admin: 06/21/19 20:46 Dose: 100 mls/hr Sodium Chloride (Normal Saline) 1,000 mls @ 1,000 mls/hr IV .Bolus ONE Stop: 06/21/19 21:34 Last Admin: 06/21/19 20:54 Dose: 1,000 mls/hr Sodium Chloride (Normal Saline) 1,000 mls @ 1,000 mls/hr IV .Bolus ONE Stop: 06/21/19 21:35 Last Admin: 06/21/19 22:07 Dose: 1,000 mls/hr Vancomycin HCl 1.25 gm/ Sodium (Chloride) 250 mls @ 167 mls/hr IV ONETIME ONE Stop: 06/22/19 00:09 Last Admin: 06/21/19 23:31 Dose: 167 mls/hr Vancomycin HCl 0.75 gm/ Sodium (Chloride) 250 mls @ 166.667 mls/hr IV ONETIME ONE Stop: 06/22/19 03:59 Last Admin: 06/22/19 03:44 Dose: 166.667 mls/hr Vancomycin HCl 2 gm/ Sodium (Chloride) 500 mls @ 333.333 mls/hr IV Q24H [facility] Last Admin: 06/23/19 00:17 Dose: 333.333 mls/hr Vancomycin HCl 2 gm/ Sodium (Chloride) 500 mls @ 333.333 mls/hr IV Q12H [facility] Last Admin: 06/26/19 01:59 Dose: 333.333 mls/hr Pantoprazole Sodium 40 mg/ (Sodium Chloride) 10 mls @ 300 mls/hr IV NOW ONE Stop: 06/23/19 11:18 Last Admin: 06/23/19 11:49 Dose: 300 mls/hr Pantoprazole Sodium 40 mg/ (Sodium Chloride) 10 mls @ 300 mls/hr IV NOW ONE Stop: 06/23/19 21:14 Last Admin: 06/23/19 21:34 Dose: 300 mls/hr Piperacillin Sod/Tazobactam (Sod 3.375 gm/ Sodium Chloride) 50 mls @ 100 mls/ hr IV Q6H [facility] Last Admin: 06/24/19 01:38 Dose: Not Given Piperacillin Sod/Tazobactam (Sod 3.375 gm/ Sodium Chloride) 50 mls @ 100 mls/ hr IV Q6H [facility] Last Admin: 06/25/19 09:11 Dose: Not Given Ciprofloxacin/Dextrose 400 mg/ (Premix) 200 mls @ 200 mls/hr IV Q12H [facility] Last Admin: 06/26/19 09:08 Dose: 200 mls/hr Metronidazole 500 mg/ Premix 100 mls @ 100 mls/hr IV QID [facility] Last Admin: 06/26/19 06:27 Dose: 90 mls/hr Sodium Chloride (Normal Saline) 1,000 mls @ 100 mls/hr IV ASDIRECTED [facility] Stop: 06/25/19 21:14 Sodium Chloride (Normal Saline) 1,000 mls @ 125 mls/hr IV STAT ONE Stop: 06/26/19 17:15 Last Admin: 06/26/19 11:03 Dose: 125 mls/hr Metformin HCl (Glucophage) 1,000 mg PO BIDMEALS [facility] Last Admin: 06/24/19 08:17 Dose: 1,000 mg Metformin 1000 Mg (Tab) 1 each PO BIDMEALS [facility] Last Admin: 06/23/19 09:43 Dose: Not Given Atorvastatin 20 Mg (Tab) 1 each PO DAILY [facility] Last Admin: 06/22/19 09:06 Dose: 1 each Vancomycin HCl (Pharmacy To Dose - Vancomycin) 1 dose .XX ASDIRECTED [facility] - Exam Quality Assessment: DVT Prophylaxis. No: Supplemental Oxygen General: Alert, Oriented, Cooperative Lungs: Clear to Auscultation, Normal Respiratory Effort Cardiovascular: Regular Rate, Regular Rhythm GI/Abdominal Exam: Normal Bowel Sounds, Soft, Non-Tender Extremities: Normal Inspection, Normal Range of Motion, Pedal Edema (+1-2 non pitting LLE) Wound/Incisions: Erythema Improving (small bullae noted with some serous drainage, edema improving as well as erythema. Erythema only located to anterior and posterior lower leg, excluding knee and ankle. Pain continues to improve. ) Psy/Mental Status: Alert, Normal Affect, Normal Mood Sepsis Event Note - Evaluation Sepsis Screening Result: No Definite Risk - Focused Exam Vital Signs: Vital Signs Temp Pulse Resp BP Pulse Ox 06/27/19 07:10 97.2 F 85 16 122/55 L 94 L 06/27/19 03:34 96.6 F L 83 16 114/63 93 L 06/27/19 00:00 98.9 F 93 16 148/70 H 96 Date Exam was Performed: 06/27/19 Time Exam was Performed: 09:51 - Problem List & Annotations (1) Cellulitis SNOMED Code(s): 915167655 Code(s): L03.90 - CELLULITIS, UNSPECIFIED Status: Acute Current Visit: Yes Qualifiers: Site of cellulitis: extremity Site of cellulitis of extremity: lower extremity Laterality: left Qualified Code(s): L03.116 - Cellulitis of left lower limb (2) Chest pain SNOMED Code(s): 92653553 Code(s): R07.9 - CHEST PAIN, UNSPECIFIED Status: Acute Current Visit: Yes (3) HTN (hypertension) SNOMED Code(s): 83209671 Code(s): I10 - ESSENTIAL (PRIMARY) HYPERTENSION Status: Chronic Current Visit: Yes (4) HLD (hyperlipidemia) SNOMED Code(s): 47231085 Code(s): E78.5 - HYPERLIPIDEMIA, UNSPECIFIED Status: Chronic Current Visit: Yes (5) DM type 2 (diabetes mellitus, type 2) SNOMED Code(s): 49082159 Code(s): E11.9 - TYPE 2 DIABETES MELLITUS WITHOUT COMPLICATIONS Status: Chronic Current Visit: Yes Qualifiers: Diabetes mellitus manager terminal insulin use: without manager terminal use Diabetes mellitus complication status: with skin complications Diabetes mellitus complication detail: with other skin complication Qualified Code(s): E11.628 - Type 2 diabetes mellitus with other skin complications (6) Obesity SNOMED Code(s): 344692777, 780715847 Code(s): E66.9 - OBESITY, UNSPECIFIED Status: Chronic Current Visit: Yes - Problem List Review Problem List Initiated/Reviewed/Updated: Yes - My Orders Last 24 Hours: My Active Orders 06/27/19 08:30 Sodium Chloride 0.9% [Normal Saline] 1,000 ml IV Q10H 06/27/19 18:00 Ciprofloxacin [Ciprofloxacin HCl] 500 mg PO Q18H - Plan Plan:: 69 yo male admitted for left lower extremity cellulitis. 1. L lower extremity cellulitis - Continue clindamycin 2. Acute cholecystitis: - No further abdominal pain - Consulted Dr Farrell - continue Cipro and Flagyl. renally dose Cipro 500 mg Q18hrs - Protonix 3. KHADRA: - creatinine 2.6 today, Continue gentle hydration, NS 100 - Monitor avoiding nephrotoxic medications. - No bladder outlet obstruction, post void residual 143. - Obtain UA and evaluate FENA - Retroperitoneal US today 4. HTN: - Stable, monitor 5 . DM type 2: - Monitor BS TIDAC, with Novolog SSI Diet: ADA, low fat Code Status: Full code VTE prophylaxis: Heparin Dispo: 2 days pending KHADRA resolution
[2019-06-27] MEDS: Sodium Chloride 0.9% 1,000 ML IV SCH ×2 (09:23→20:01)
[2019-06-27] MEDS: Clindamycin HCl 150 MG Cap PO SCH ×3 (09:29→20:50)
[2019-06-27] MEDS: atorvaSTATin 20 MG Tab PO SCH (09:30)
--- NOTE | 2019-06-27 17:27 | US ---
Renal ultrasound: Multiple real-time images of the kidneys were obtained. Technologist's note: Limited study due to patient size Cyst noted within the right kidney measuring 3.8 cm. Kidneys show no hydronephrosis. No discrete mass is appreciated. Bladder not well seen. Right kidney has a length of 12.2 cm. Left kidney has a length of 15.8 cm. Impression: 1. Somewhat limited study as noted above. 2. Cyst within the right kidney. 3. No other definite abnormality is appreciated. Diagnostic code #2 Study was dictated in [facility]
[2019-06-27] MEDS ORDERED: Ciprofloxacin 500 MG Tab PO SCH (18:00)
[2019-06-28] MEDS: Heparin Sodium 5,000 Units/ML Vial SUBCUT SCH ×3 (01:13→17:31)
[2019-06-28] MEDS: metroNIDAZOLE 250 MG Tab PO SCH ×4 (04:03→20:44)
[2019-06-28] MEDS: Clindamycin HCl 150 MG Cap PO SCH ×4 (04:03→20:44)
[2019-06-28] MEDS: Sodium Chloride 0.9% 1,000 ML IV SCH ×2 (05:42→14:37)
[2019-06-28 07:09] LABS: CARBON DIOXIDE,CO2 24.8 mmol/L (21.0-32.0); POTASSIUM,K 4.2 mmol/L (3.5-5.1)
[2019-06-28] MEDS: Pantoprazole 40 MG Tab.CR PO SCH (07:58)
[2019-06-28] MEDS: Insulin Aspart 100 Units/ML 3 ML Pen SUBCUT SCH ×3 (07:58→17:21)
[2019-06-28] MEDS: atorvaSTATin 20 MG Tab PO SCH (08:35)
--- NOTE | 2019-06-28 09:12 | PCM.PN ---
- General Info Date of Service: 06/28/19 Subjective Update: No complaints at bedside this morning. Tolerating PO diet and reports urinating frequently. No blood in urine. Denies any fevers, chills, chest pain, nausea, vomiting or SOB. - Patient Data Vitals - Most Recent: Last Vital Signs Temp 97.2 F 06/28/19 08:00 Pulse 86 06/28/19 08:00 Resp 16 06/28/19 08:00 BP 107/54 L 06/28/19 08:00 Pulse Ox 94 L 06/28/19 08:00 Weight - Most Recent: 325 lb 11.2 oz I&O - Last 24 Hours: Intake & Output 06/27/19 06/28/19 06/28/19 22:59 06:59 14:59 Intake Total 1620 2792 Output Total 1200 1450 Balance 420 1342 Lab Results Last 24 Hours: Laboratory Results - last 24 hr 06/27/19 06/27/19 06/27/19 Range/Units 11:44 17:41 17:50 WBC (4.0-11.0) K/uL RBC (4.50-5.90) M/uL Hgb (13.0-17.0) g/dL Hct (38.0-50.0) % MCV (80.0-98.0) fL MCH (27.0-32.0) pg MCHC (31.0-37.0) g/dL RDW Std Deviation (28.0-62.0) fl RDW Coeff of Letty (11.0-15.0) % Plt Count (150-400) K/uL MPV (7.40-12.00) fL Neut % (Auto) (48.0-80.0) % Lymph % (Auto) (16.0-40.0) % [place] % (Auto) (0.0-15.0) % Eos % (Auto) (0.0-7.0) % Baso % (Auto) (0.0-1.5) % Neut # (Auto) (1.4-5.7) K/uL Lymph # (Auto) (0.6-2.4) K/uL [place] # (Auto) (0.0-0.8) K/uL Eos # (Auto) (0.0-0.7) K/uL Baso # (Auto) (0.0-0.1) K/uL Nucleated RBC % /100WBC Nucleated RBCs # K/uL Sodium (136-148) mmol/L Potassium (3.5-5.1) mmol/L Chloride (98-107) mmol/L Carbon Dioxide (21.0-32.0) mmol/L BUN (7.0-18.0) mg/dL Creatinine (0.8-1.3) mg/dL Est Cr Clr Drug Dosing mL/min Estimated GFR (MDRD) ml/min Glucose (74-106) mg/dL POC Glucose 129 H 129 H (60-110) mg/dL Calcium (8.5-10.1) mg/dL Urine Color YELLOW Urine Appearance HAZY Urine pH 5.5 (5.0-8.0) Ur Specific [place] 1.010 (1.001-1.035) Urine Protein NEGATIVE (NEGATIVE) mg/dL Urine Glucose (UA) NEGATIVE (NEGATIVE) mg/dL Urine Ketones NEGATIVE (NEGATIVE) mg/dL Urine Occult Blood SMALL H (NEGATIVE) Urine Nitrite NEGATIVE (NEGATIVE) Urine Bilirubin NEGATIVE (NEGATIVE) Urine Urobilinogen 0.2 (<2.0) EU/dL Ur Leukocyte Esterase NEGATIVE (NEGATIVE) Urine RBC 0-3 (0-2/HPF) Urine WBC 0-3 (0-5/HPF) Ur Epithelial Cells RARE (NONE-FEW) Urine Bacteria FEW (NEGATIVE) Ur Random Creatinine mg/dL Ur Random Sodium (40.0-220.0) mmol/L 06/27/19 06/28/19 06/28/19 Range/Units 17:50 06:25 06:25 WBC 9.09 (4.0-11.0) K/uL RBC 4.40 L (4.50-5.90) M/uL Hgb 11.0 L (13.0-17.0) g/dL Hct 36.2 L (38.0-50.0) % MCV 82.3 (80.0-98.0) fL MCH 25.0 L (27.0-32.0) pg MCHC 30.4 L (31.0-37.0) g/dL RDW Std Deviation 51.0 (28.0-62.0) fl RDW Coeff of Letty 17 H (11.0-15.0) % Plt Count 352 (150-400) K/uL MPV 8.60 (7.40-12.00) fL Neut % (Auto) 83.5 H (48.0-80.0) % Lymph % (Auto) 4.3 L (16.0-40.0) % [place] % (Auto) 9.9 (0.0-15.0) % Eos % (Auto) 2.2 (0.0-7.0) % Baso % (Auto) 0.1 (0.0-1.5) % Neut # (Auto) 7.6 H (1.4-5.7) K/uL Lymph # (Auto) 0.4 L (0.6-2.4) K/uL [place] # (Auto) 0.9 H (0.0-0.8) K/uL Eos # (Auto) 0.2 (0.0-0.7) K/uL Baso # (Auto) 0.0 (0.0-0.1) K/uL Nucleated RBC % 0.0 /100WBC Nucleated RBCs # 0 K/uL Sodium 142 (136-148) mmol/L Potassium 4.2 (3.5-5.1) mmol/L Chloride 109 H (98-107) mmol/L Carbon Dioxide 24.8 (21.0-32.0) mmol/L BUN 41 H (7.0-18.0) mg/dL Creatinine 3.0 H (0.8-1.3) mg/dL Est Cr Clr Drug Dosing 22.58 mL/min Estimated GFR (MDRD) 20.7 ml/min Glucose 177 H (74-106) mg/dL POC Glucose (60-110) mg/dL Calcium 8.1 L (8.5-10.1) mg/dL Urine Color Urine Appearance Urine pH (5.0-8.0) Ur Specific [place] (1.001-1.035) Urine Protein (NEGATIVE) mg/dL Urine Glucose (UA) (NEGATIVE) mg/dL Urine Ketones (NEGATIVE) mg/dL Urine Occult Blood (NEGATIVE) Urine Nitrite (NEGATIVE) Urine Bilirubin (NEGATIVE) Urine Urobilinogen (<2.0) EU/dL Ur Leukocyte Esterase (NEGATIVE) Urine RBC (0-2/HPF) Urine WBC (0-5/HPF) Ur Epithelial Cells (NONE-FEW) Urine Bacteria (NEGATIVE) Ur Random Creatinine 49.1 mg/dL Ur Random Sodium 26.0 L (40.0-220.0) mmol/L 06/28/19 Range/Units 06:39 WBC (4.0-11.0) K/uL RBC (4.50-5.90) M/uL Hgb (13.0-17.0) g/dL Hct (38.0-50.0) % MCV (80.0-98.0) fL MCH (27.0-32.0) pg MCHC (31.0-37.0) g/dL RDW Std Deviation (28.0-62.0) fl RDW Coeff of Letty (11.0-15.0) % Plt Count (150-400) K/uL MPV (7.40-12.00) fL Neut % (Auto) (48.0-80.0) % Lymph % (Auto) (16.0-40.0) % [place] % (Auto) (0.0-15.0) % Eos % (Auto) (0.0-7.0) % Baso % (Auto) (0.0-1.5) % Neut # (Auto) (1.4-5.7) K/uL Lymph # (Auto) (0.6-2.4) K/uL [place] # (Auto) (0.0-0.8) K/uL Eos # (Auto) (0.0-0.7) K/uL Baso # (Auto) (0.0-0.1) K/uL Nucleated RBC % /100WBC Nucleated RBCs # K/uL Sodium (136-148) mmol/L Potassium (3.5-5.1) mmol/L Chloride (98-107) mmol/L Carbon Dioxide (21.0-32.0) mmol/L BUN (7.0-18.0) mg/dL Creatinine (0.8-1.3) mg/dL Est Cr Clr Drug Dosing mL/min Estimated GFR (MDRD) ml/min Glucose (74-106) mg/dL POC Glucose 166 H (60-110) mg/dL Calcium (8.5-10.1) mg/dL Urine Color Urine Appearance Urine pH (5.0-8.0) Ur Specific [place] (1.001-1.035) Urine Protein (NEGATIVE) mg/dL Urine Glucose (UA) (NEGATIVE) mg/dL Urine Ketones (NEGATIVE) mg/dL Urine Occult Blood (NEGATIVE) Urine Nitrite (NEGATIVE) Urine Bilirubin (NEGATIVE) Urine Urobilinogen (<2.0) EU/dL Ur Leukocyte Esterase (NEGATIVE) Urine RBC (0-2/HPF) Urine WBC (0-5/HPF) Ur Epithelial Cells (NONE-FEW) Urine Bacteria (NEGATIVE) Ur Random Creatinine mg/dL Ur Random Sodium (40.0-220.0) mmol/L Can Results Last 24 Hours: Microbiology 06/23/19 14:29 Aerobic Blood Culture - Preliminary Blood - Venous - Lab Draw NO GROWTH AFTER 4 DAYS Anaerobic Blood Culture - Preliminary NO GROWTH AFTER 4 DAYS 06/23/19 14:14 Aerobic Blood Culture - Preliminary Blood - Venous NO GROWTH AFTER 4 DAYS Anaerobic Blood Culture - Preliminary NO GROWTH AFTER 4 DAYS 06/21/19 20:00 Aerobic Blood Culture - Final Blood - Venous Staphylococcus Epidermidis Anaerobic Blood Culture - Final Med Orders - Current: Current Medications Acetaminophen (Tylenol) 650 mg PO Q6H PRN PRN Reason: Pain Last Admin: 06/23/19 01:09 Dose: 650 mg Atorvastatin Calcium (Lipitor) 20 mg PO DAILY [facility] Last Admin: 06/28/19 08:35 Dose: 20 mg Calcium Carbonate/Glycine (Tums) 500 mg PO TID PRN PRN Reason: Indigestion Last Admin: 06/22/19 23:42 Dose: 500 mg Ciprofloxacin (Ciprofloxacin Hcl) 500 mg PO Q18H [facility] Last Admin: 06/27/19 17:35 Dose: 500 mg Clindamycin HCl (Cleocin) 300 mg PO Q6H [facility] Last Admin: 06/28/19 08:35 Dose: 300 mg Heparin Sodium (Porcine) (Heparin Sodium) 5,000 units SUBCUT Q8H [facility] Last Admin: 06/28/19 08:36 Dose: 5,000 units Sodium Chloride (Normal Saline) 1,000 mls @ 100 mls/hr IV Q10H [facility] Last Admin: 06/28/19 05:42 Dose: 100 mls/hr Insulin Aspart (Novolog) 0 unit SUBCUT TIDAC [facility]; Protocol Last Admin: 06/28/19 07:58 Dose: 1 unit Metronidazole (Metronidazole) 500 mg PO Q6H [facility] Last Admin: 06/28/19 08:34 Dose: 500 mg Morphine Sulfate (Morphine) 2 mg IVPUSH Q2H PRN PRN Reason: Pain Last Admin: 06/24/19 19:06 Dose: 2 mg Pantoprazole Sodium (Protonix) 40 mg PO ACBREAKFAST [facility] Last Admin: 06/28/19 07:58 Dose: 40 mg Discontinued Medications Atorvastatin Calcium (Lipitor) 20 mg PO DAILY [facility] Ciprofloxacin (Ciprofloxacin Hcl) 500 mg PO BID [facility] Last Admin: 06/26/19 22:05 Dose: 500 mg Clindamycin HCl (Cleocin) 300 mg PO Q6H [facility] Al Hydroxide/Mg Hydroxide 15 (ml/ Lidocaine HCl 5 ml) 0 ml PO ONETIME ONE Stop: 06/23/19 08:31 Last Admin: 06/23/19 09:28 Dose: 1 each Sodium Chloride (Normal Saline) 1,000 mls @ 1,000 mls/hr IV .Bolus ONE Stop: 06/21/19 20:43 Last Admin: 06/21/19 20:10 Dose: 1,000 mls/hr Piperacillin Sod/Tazobactam (Sod 4.5 gm/ Sodium Chloride) 100 mls @ 100 mls/hr IV ONETIME ONE Stop: 06/21/19 21:33 Last Admin: 06/21/19 20:46 Dose: 100 mls/hr Sodium Chloride (Normal Saline) 1,000 mls @ 1,000 mls/hr IV .Bolus ONE Stop: 06/21/19 21:34 Last Admin: 06/21/19 20:54 Dose: 1,000 mls/hr Sodium Chloride (Normal Saline) 1,000 mls @ 1,000 mls/hr IV .Bolus ONE Stop: 06/21/19 21:35 Last Admin: 06/21/19 22:07 Dose: 1,000 mls/hr Vancomycin HCl 1.25 gm/ Sodium (Chloride) 250 mls @ 167 mls/hr IV ONETIME ONE Stop: 06/22/19 00:09 Last Admin: 06/21/19 23:31 Dose: 167 mls/hr Vancomycin HCl 0.75 gm/ Sodium (Chloride) 250 mls @ 166.667 mls/hr IV ONETIME ONE Stop: 06/22/19 03:59 Last Admin: 06/22/19 03:44 Dose: 166.667 mls/hr Vancomycin HCl 2 gm/ Sodium (Chloride) 500 mls @ 333.333 mls/hr IV Q24H [facility] Last Admin: 06/23/19 00:17 Dose: 333.333 mls/hr Vancomycin HCl 2 gm/ Sodium (Chloride) 500 mls @ 333.333 mls/hr IV Q12H [facility] Last Admin: 06/26/19 01:59 Dose: 333.333 mls/hr Pantoprazole Sodium 40 mg/ (Sodium Chloride) 10 mls @ 300 mls/hr IV NOW ONE Stop: 06/23/19 11:18 Last Admin: 06/23/19 11:49 Dose: 300 mls/hr Pantoprazole Sodium 40 mg/ (Sodium Chloride) 10 mls @ 300 mls/hr IV NOW ONE Stop: 06/23/19 21:14 Last Admin: 06/23/19 21:34 Dose: 300 mls/hr Piperacillin Sod/Tazobactam (Sod 3.375 gm/ Sodium Chloride) 50 mls @ 100 mls/ hr IV Q6H [facility] Last Admin: 06/24/19 01:38 Dose: Not Given Piperacillin Sod/Tazobactam (Sod 3.375 gm/ Sodium Chloride) 50 mls @ 100 mls/ hr IV Q6H [facility] Last Admin: 06/25/19 09:11 Dose: Not Given Ciprofloxacin/Dextrose 400 mg/ (Premix) 200 mls @ 200 mls/hr IV Q12H [facility] Last Admin: 06/26/19 09:08 Dose: 200 mls/hr Metronidazole 500 mg/ Premix 100 mls @ 100 mls/hr IV QID [facility] Last Admin: 06/26/19 06:27 Dose: 90 mls/hr Sodium Chloride (Normal Saline) 1,000 mls @ 100 mls/hr IV ASDIRECTED [facility] Stop: 06/25/19 21:14 Sodium Chloride (Normal Saline) 1,000 mls @ 125 mls/hr IV STAT ONE Stop: 06/26/19 17:15 Last Admin: 06/26/19 11:03 Dose: 125 mls/hr Metformin HCl (Glucophage) 1,000 mg PO BIDMEALS [facility] Last Admin: 06/24/19 08:17 Dose: 1,000 mg Metformin 1000 Mg (Tab) 1 each PO BIDMEALS [facility] Last Admin: 06/23/19 09:43 Dose: Not Given Atorvastatin 20 Mg (Tab) 1 each PO DAILY [facility] Last Admin: 06/22/19 09:06 Dose: 1 each Vancomycin HCl (Pharmacy To Dose - Vancomycin) 1 dose .XX ASDIRECTED [facility] - Exam General: Alert, Oriented, Cooperative, No Acute Distress Lungs: Clear to Auscultation, Normal Respiratory Effort Cardiovascular: Regular Rate, Regular Rhythm GI/Abdominal Exam: Normal Bowel Sounds, Soft, Non-Tender, No Distention Extremities: Other (LLE: area of erythema improved, non-tender, warm to touch, serous colored drainage noted on bed sheet) Sepsis Event Note - Evaluation Sepsis Screening Result: No Definite Risk - Focused Exam Vital Signs: Vital Signs Temp Pulse Resp BP Pulse Ox Pulse Ox 06/28/19 08:00 97.2 F 86 16 107/54 L 94 L 94 L 06/28/19 04:00 97.5 F 82 18 132/64 94 L 06/28/19 00:24 97.7 F 82 18 138/60 94 L Date Exam was Performed: 06/28/19 Time Exam was Performed: 11:07 - Problem List Review Problem List Initiated/Reviewed/Updated: Yes - My Orders Last 24 Hours: My Active Orders 06/27/19 09:15 clindamycin HCL [Cleocin] 300 mg PO Q6H - Plan Plan:: Assessment and Plan: 1. L lower extremity cellulitis: - Will continue PO clindamycin. Area of erythema shows continued improvement. 2. Acute cholecystitis: - Will continue flagyl but discontinue ciprofloxacin secondary to #3. - Consulted general surgeon Dr Farrell. - Continue Protonix. 3. KHADRA: - Creatinine is 3.0 today increased from 2.6 yesterday. Currently on IV NS 100 cc/hr. Avoid nephrotoxic medications. UA was unremarkable. Calculated FeNa: 1.1% . Patient continues to urinate frequently. Will continue to monitor. - Retroperitoneal US was unremarkable. - No bladder outlet obstruction suspected as post-void residual volume was 143 cc. 4. HTN, stable: - Continue to monitor. 5 . DM type 2: - Accuchek TIDAC, Novolog SSI, ADA diet. 6. DVT prophylaxis: heparin.
[2019-06-29] MEDS: Heparin Sodium 5,000 Units/ML Vial SUBCUT SCH ×3 (02:03→17:15)
[2019-06-29] MEDS: Sodium Chloride 0.9% 1,000 ML IV SCH ×3 (02:05→19:45)
[2019-06-29] MEDS: metroNIDAZOLE 250 MG Tab PO SCH ×4 (04:12→20:47)
[2019-06-29] MEDS: Clindamycin HCl 150 MG Cap PO SCH ×4 (04:12→20:46)
[2019-06-29 06:53] LABS: CARBON DIOXIDE,CO2 22.1 mmol/L (21.0-32.0); POTASSIUM,K 3.9 mmol/L (3.5-5.1)
[2019-06-29] MEDS: Insulin Aspart 100 Units/ML 3 ML Pen SUBCUT SCH ×3 (07:41→17:15)
[2019-06-29] MEDS: Pantoprazole 40 MG Tab.CR PO SCH (07:48)
[2019-06-29] MEDS: atorvaSTATin 20 MG Tab PO SCH (08:27)
--- NOTE | 2019-06-29 12:36 | PCM.PN ---
- General Info Date of Service: 06/29/19 Admission Dx/Problem (Free Text): Admission Diagnosis/Problem Admission Diagnosis/Problem Cellulitis of left lower leg Subjective Update: No complaints at bedside this morning. Tolerating PO diet and reports urinating frequently. No blood in urine. Denies any fevers, chills, chest pain, nausea, vomiting or SOB. Cellulitis getting better visibly. - Review of Systems General: Denies: Fever, Weakness, Fatigue Pulmonary: Denies: Shortness of Breath, Pleuritic Chest Pain Cardiovascular: Denies: Chest Pain, Palpitations, Dyspnea on Exertion Gastrointestinal: Denies: Abdominal Pain, Constipation Genitourinary: Reports: Frequency. Denies: Dysuria, Burning, Pain Musculoskeletal: Denies: Neck Pain, Shoulder Pain, Arm Pain Skin: Reports: Pruritis, Rash - Patient Data Vitals - Most Recent: Last Vital Signs Temp 36.6 C 06/29/19 07:15 Pulse 75 06/29/19 07:15 Resp 16 06/29/19 07:15 BP 124/62 06/29/19 07:15 Pulse Ox 94 L 06/29/19 08:00 Weight - Most Recent: 147.735 kg I&O - Last 24 Hours: Intake & Output 06/28/19 06/29/19 06/29/19 22:59 06:59 14:59 Intake Total 2827 3395 Output Total 1880 1900 Balance 947 1495 Lab Results Last 24 Hours: Laboratory Results - last 24 hr 06/28/19 06/29/19 06/29/19 Range/Units 16:46 06:15 06:15 WBC 9.92 (4.0-11.0) K/uL RBC 4.51 (4.50-5.90) M/uL Hgb 11.5 L (13.0-17.0) g/dL Hct 37.1 L (38.0-50.0) % MCV 82.3 (80.0-98.0) fL MCH 25.5 L (27.0-32.0) pg MCHC 31.0 (31.0-37.0) g/dL RDW Std Deviation 50.8 (28.0-62.0) fl RDW Coeff of Letty 17 H (11.0-15.0) % Plt Count 380 (150-400) K/uL MPV 8.70 (7.40-12.00) fL Neut % (Auto) 81.9 H (48.0-80.0) % Lymph % (Auto) 6.3 L (16.0-40.0) % [place] % (Auto) 8.8 (0.0-15.0) % Eos % (Auto) 2.7 (0.0-7.0) % Baso % (Auto) 0.3 (0.0-1.5) % Neut # (Auto) 8.1 H (1.4-5.7) K/uL Lymph # (Auto) 0.6 (0.6-2.4) K/uL [place] # (Auto) 0.9 H (0.0-0.8) K/uL Eos # (Auto) 0.3 (0.0-0.7) K/uL Baso # (Auto) 0.0 (0.0-0.1) K/uL Nucleated RBC % 0.0 /100WBC Nucleated RBCs # 0 K/uL Sodium 144 (136-148) mmol/L Potassium 3.9 (3.5-5.1) mmol/L Chloride 111 H (98-107) mmol/L Carbon Dioxide 22.1 (21.0-32.0) mmol/L BUN 38 H (7.0-18.0) mg/dL Creatinine 2.8 H (0.8-1.3) mg/dL Est Cr Clr Drug Dosing 24.20 mL/min Estimated GFR (MDRD) 22.5 ml/min Glucose 136 H (74-106) mg/dL POC Glucose 138 H (60-110) mg/dL Calcium 7.8 L (8.5-10.1) mg/dL 06/29/19 06/29/19 Range/Units 06:40 11:19 WBC (4.0-11.0) K/uL RBC (4.50-5.90) M/uL Hgb (13.0-17.0) g/dL Hct (38.0-50.0) % MCV (80.0-98.0) fL MCH (27.0-32.0) pg MCHC (31.0-37.0) g/dL RDW Std Deviation (28.0-62.0) fl RDW Coeff of Letty (11.0-15.0) % Plt Count (150-400) K/uL MPV (7.40-12.00) fL Neut % (Auto) (48.0-80.0) % Lymph % (Auto) (16.0-40.0) % [place] % (Auto) (0.0-15.0) % Eos % (Auto) (0.0-7.0) % Baso % (Auto) (0.0-1.5) % Neut # (Auto) (1.4-5.7) K/uL Lymph # (Auto) (0.6-2.4) K/uL [place] # (Auto) (0.0-0.8) K/uL Eos # (Auto) (0.0-0.7) K/uL Baso # (Auto) (0.0-0.1) K/uL Nucleated RBC % /100WBC Nucleated RBCs # K/uL Sodium (136-148) mmol/L Potassium (3.5-5.1) mmol/L Chloride (98-107) mmol/L Carbon Dioxide (21.0-32.0) mmol/L BUN (7.0-18.0) mg/dL Creatinine (0.8-1.3) mg/dL Est Cr Clr Drug Dosing mL/min Estimated GFR (MDRD) ml/min Glucose (74-106) mg/dL POC Glucose 129 H 125 H (60-110) mg/dL Calcium (8.5-10.1) mg/dL Can Results Last 24 Hours: Microbiology 06/23/19 14:29 Aerobic Blood Culture - Final Blood - Venous - Lab Draw NO GROWTH AFTER 5 DAYS Anaerobic Blood Culture - Final NO GROWTH AFTER 5 DAYS 06/23/19 14:14 Aerobic Blood Culture - Final Blood - Venous NO GROWTH AFTER 5 DAYS Anaerobic Blood Culture - Final NO GROWTH AFTER 5 DAYS Med Orders - Current: Current Medications Acetaminophen (Tylenol) 650 mg PO Q6H PRN PRN Reason: Pain Last Admin: 06/23/19 01:09 Dose: 650 mg Atorvastatin Calcium (Lipitor) 20 mg PO DAILY [facility] Last Admin: 06/29/19 08:27 Dose: 20 mg Calcium Carbonate/Glycine (Tums) 500 mg PO TID PRN PRN Reason: Indigestion Last Admin: 06/22/19 23:42 Dose: 500 mg Clindamycin HCl (Cleocin) 300 mg PO Q6H [facility] Last Admin: 06/29/19 08:27 Dose: 300 mg Heparin Sodium (Porcine) (Heparin Sodium) 5,000 units SUBCUT Q8H [facility] Last Admin: 06/29/19 08:28 Dose: 5,000 units Sodium Chloride (Normal Saline) 1,000 mls @ 125 mls/hr IV Q10H [facility] Last Admin: 06/29/19 11:00 Dose: 100 mls/hr Insulin Aspart (Novolog) 0 unit SUBCUT TIDAC [facility]; Protocol Last Admin: 06/29/19 11:41 Dose: Not Given Metronidazole (Metronidazole) 500 mg PO Q6H [facility] Last Admin: 06/29/19 08:27 Dose: 500 mg Morphine Sulfate (Morphine) 2 mg IVPUSH Q2H PRN PRN Reason: Pain Last Admin: 06/24/19 19:06 Dose: 2 mg Pantoprazole Sodium (Protonix) 40 mg PO ACBREAKFAST [facility] Last Admin: 06/29/19 07:48 Dose: 40 mg Discontinued Medications Atorvastatin Calcium (Lipitor) 20 mg PO DAILY [facility] Ciprofloxacin (Ciprofloxacin Hcl) 500 mg PO BID [facility] Last Admin: 06/26/19 22:05 Dose: 500 mg Ciprofloxacin (Ciprofloxacin Hcl) 500 mg PO Q18H [facility] Last Admin: 06/27/19 17:35 Dose: 500 mg Clindamycin HCl (Cleocin) 300 mg PO Q6H [facility] Al Hydroxide/Mg Hydroxide 15 (ml/ Lidocaine HCl 5 ml) 0 ml PO ONETIME ONE Stop: 06/23/19 08:31 Last Admin: 06/23/19 09:28 Dose: 1 each Sodium Chloride (Normal Saline) 1,000 mls @ 1,000 mls/hr IV .Bolus ONE Stop: 06/21/19 20:43 Last Admin: 06/21/19 20:10 Dose: 1,000 mls/hr Piperacillin Sod/Tazobactam (Sod 4.5 gm/ Sodium Chloride) 100 mls @ 100 mls/hr IV ONETIME ONE Stop: 06/21/19 21:33 Last Admin: 06/21/19 20:46 Dose: 100 mls/hr Sodium Chloride (Normal Saline) 1,000 mls @ 1,000 mls/hr IV .Bolus ONE Stop: 06/21/19 21:34 Last Admin: 06/21/19 20:54 Dose: 1,000 mls/hr Sodium Chloride (Normal Saline) 1,000 mls @ 1,000 mls/hr IV .Bolus ONE Stop: 06/21/19 21:35 Last Admin: 06/21/19 22:07 Dose: 1,000 mls/hr Vancomycin HCl 1.25 gm/ Sodium (Chloride) 250 mls @ 167 mls/hr IV ONETIME ONE Stop: 06/22/19 00:09 Last Admin: 06/21/19 23:31 Dose: 167 mls/hr Vancomycin HCl 0.75 gm/ Sodium (Chloride) 250 mls @ 166.667 mls/hr IV ONETIME ONE Stop: 06/22/19 03:59 Last Admin: 06/22/19 03:44 Dose: 166.667 mls/hr Vancomycin HCl 2 gm/ Sodium (Chloride) 500 mls @ 333.333 mls/hr IV Q24H [facility] Last Admin: 06/23/19 00:17 Dose: 333.333 mls/hr Vancomycin HCl 2 gm/ Sodium (Chloride) 500 mls @ 333.333 mls/hr IV Q12H [facility] Last Admin: 06/26/19 01:59 Dose: 333.333 mls/hr Pantoprazole Sodium 40 mg/ (Sodium Chloride) 10 mls @ 300 mls/hr IV NOW ONE Stop: 06/23/19 11:18 Last Admin: 06/23/19 11:49 Dose: 300 mls/hr Pantoprazole Sodium 40 mg/ (Sodium Chloride) 10 mls @ 300 mls/hr IV NOW ONE Stop: 06/23/19 21:14 Last Admin: 06/23/19 21:34 Dose: 300 mls/hr Piperacillin Sod/Tazobactam (Sod 3.375 gm/ Sodium Chloride) 50 mls @ 100 mls/ hr IV Q6H [facility] Last Admin: 06/24/19 01:38 Dose: Not Given Piperacillin Sod/Tazobactam (Sod 3.375 gm/ Sodium Chloride) 50 mls @ 100 mls/ hr IV Q6H [facility] Last Admin: 06/25/19 09:11 Dose: Not Given Ciprofloxacin/Dextrose 400 mg/ (Premix) 200 mls @ 200 mls/hr IV Q12H [facility] Last Admin: 06/26/19 09:08 Dose: 200 mls/hr Metronidazole 500 mg/ Premix 100 mls @ 100 mls/hr IV QID [facility] Last Admin: 06/26/19 06:27 Dose: 90 mls/hr Sodium Chloride (Normal Saline) 1,000 mls @ 100 mls/hr IV ASDIRECTED [facility] Stop: 06/25/19 21:14 Sodium Chloride (Normal Saline) 1,000 mls @ 125 mls/hr IV STAT ONE Stop: 06/26/19 17:15 Last Admin: 06/26/19 11:03 Dose: 125 mls/hr Metformin HCl (Glucophage) 1,000 mg PO BIDMEALS [facility] Last Admin: 06/24/19 08:17 Dose: 1,000 mg Metformin 1000 Mg (Tab) 1 each PO BIDMEALS [facility] Last Admin: 06/23/19 09:43 Dose: Not Given Atorvastatin 20 Mg (Tab) 1 each PO DAILY [facility] Last Admin: 06/22/19 09:06 Dose: 1 each Vancomycin HCl (Pharmacy To Dose - Vancomycin) 1 dose .XX ASDIRECTED [facility] - Exam General: Alert, Oriented Neck: Supple Lungs: Clear to Auscultation, Normal Respiratory Effort Cardiovascular: Regular Rate, Regular Rhythm Extremities: Pedal Edema, Leg Pain, Increased Warmth, Redness Sepsis Event Note - Evaluation Sepsis Screening Result: No Definite Risk - Focused Exam Vital Signs: Vital Signs Temp Pulse Resp BP Pulse Ox Pulse Ox 06/29/19 08:00 94 L 06/29/19 07:15 36.6 C 75 16 124/62 94 L 06/29/19 04:00 36.6 C 84 16 124/62 95 Date Exam was Performed: 06/29/19 Time Exam was Performed: 12:39 - Problem List & Annotations (1) Cellulitis and abscess of left leg SNOMED Code(s): 024172008 Code(s): L03.116 - CELLULITIS OF LEFT LOWER LIMB; L02.416 - CUTANEOUS ABSCESS OF LEFT LOWER LIMB Status: Acute Current Visit: Yes (2) DM type 2 (diabetes mellitus, type 2) SNOMED Code(s): 20705777 Code(s): E11.9 - TYPE 2 DIABETES MELLITUS WITHOUT COMPLICATIONS Status: Chronic Current Visit: Yes Qualifiers: Diabetes mellitus care home insulin use: without watermelon inspector use Diabetes mellitus complication status: with skin complications Diabetes mellitus complication detail: with other skin complication Qualified Code(s): E11.628 - Type 2 diabetes mellitus with other skin complications (3) HLD (hyperlipidemia) SNOMED Code(s): 11906359 Code(s): E78.5 - HYPERLIPIDEMIA, UNSPECIFIED Status: Chronic Current Visit: Yes (4) HTN (hypertension) SNOMED Code(s): 80318651 Code(s): I10 - ESSENTIAL (PRIMARY) HYPERTENSION Status: Chronic Current Visit: Yes (5) Obesity SNOMED Code(s): 721537773, 306762427 Code(s): E66.9 - OBESITY, UNSPECIFIED Status: Chronic Current Visit: Yes - Problem List Review Problem List Initiated/Reviewed/Updated: Yes - Plan Plan:: Assessment and Plan: 1. L lower extremity cellulitis: - Will continue PO clindamycin. Area of erythema shows continued improvement. 2. Acute cholecystitis: - Will continue flagyl, Denied any N/V/Abdominal pain - Continue Protonix. 3. KHADRA: - Creatinine has improved today, increase NS to 125cc/hr. Avoid nephrotoxic medications. UA was unremarkable. Calculated FeNa: 1.1%. Patient continues to urinate frequently. - Retroperitoneal US was unremarkable. - No bladder outlet obstruction suspected as post-void residual volume was 143 cc. 4. HTN, stable: - Continue to monitor. 5 . DM type 2: - Accuchek TIDAC, Novolog SSI, ADA diet. 6. DVT prophylaxis: heparin.
[2019-06-30] MEDS: Heparin Sodium 5,000 Units/ML Vial SUBCUT SCH ×3 (00:21→17:17)
[2019-06-30] MEDS: metroNIDAZOLE 250 MG Tab PO SCH ×4 (03:58→20:19)
[2019-06-30] MEDS: Clindamycin HCl 150 MG Cap PO SCH ×4 (03:58→20:23)
[2019-06-30] MEDS ORDERED: Sodium Chloride 0.9% 1,000 ML IV SCH (04:45)
[2019-06-30] MEDS: Insulin Aspart 100 Units/ML 3 ML Pen SUBCUT SCH ×3 (05:00→11:08)
[2019-06-30 06:34] LABS: CARBON DIOXIDE,CO2 24.4 mmol/L (21.0-32.0); POTASSIUM,K 4.5 mmol/L (3.5-5.1)
[2019-06-30] MEDS: Pantoprazole 40 MG Tab.CR PO SCH (06:49)
[2019-06-30] MEDS: atorvaSTATin 20 MG Tab PO SCH (08:21)
--- NOTE | 2019-06-30 09:20 | PCM.PN ---
- General Info Date of Service: 06/30/19 Admission Dx/Problem (Free Text): Admission Diagnosis/Problem Admission Diagnosis/Problem Cellulitis of left lower leg Subjective Update: Feeling well this morning, reports pain is better to leg. No chest pain. Reports urinating well. Tolerating diet and passing gas. No abdominal pain. Functional Status: Reports: Pain Controlled - Review of Systems HEENT: Reports: No Symptoms. Denies: Headaches, Visual Changes Pulmonary: Reports: No Symptoms. Denies: Shortness of Breath Cardiovascular: Reports: No Symptoms. Denies: Chest Pain Gastrointestinal: Reports: No Symptoms. Denies: Abdominal Pain, Nausea, Vomiting Musculoskeletal: Reports: Leg Pain (much improved) Skin: Reports: No Symptoms Neurological: Reports: No Symptoms Psychiatric: Reports: No Symptoms - Patient Data Vitals - Most Recent: Last Vital Signs Temp 98 F 06/30/19 07:42 Pulse 82 06/30/19 07:42 Resp 16 06/30/19 07:42 BP 138/66 06/30/19 07:42 Pulse Ox 96 06/30/19 07:50 Weight - Most Recent: 147.735 kg I&O - Last 24 Hours: Intake & Output 06/29/19 06/30/19 06/30/19 22:59 06:59 14:59 Intake Total 4053 2215 Output Total 1600 1900 Balance 2453 315 Lab Results Last 24 Hours: Laboratory Results - last 24 hr 06/29/19 06/29/19 06/30/19 Range/Units 11:19 17:13 06:05 WBC 11.65 H (4.0-11.0) K/uL RBC 4.72 (4.50-5.90) M/uL Hgb 12.2 L (13.0-17.0) g/dL Hct 39.0 (38.0-50.0) % MCV 82.6 (80.0-98.0) fL MCH 25.8 L (27.0-32.0) pg MCHC 31.3 (31.0-37.0) g/dL RDW Std Deviation 52.0 (28.0-62.0) fl RDW Coeff of Letty 17 H (11.0-15.0) % Plt Count 452 H (150-400) K/uL MPV 8.70 (7.40-12.00) fL Neut % (Auto) 82.1 H (48.0-80.0) % Lymph % (Auto) 7.0 L (16.0-40.0) % Ford % (Auto) 8.2 (0.0-15.0) % Eos % (Auto) 2.4 (0.0-7.0) % Baso % (Auto) 0.3 (0.0-1.5) % Neut # (Auto) 9.6 H (1.4-5.7) K/uL Lymph # (Auto) 0.8 (0.6-2.4) K/uL Ford # (Auto) 1.0 H (0.0-0.8) K/uL Eos # (Auto) 0.3 (0.0-0.7) K/uL Baso # (Auto) 0.0 (0.0-0.1) K/uL Nucleated RBC % 0.0 /100WBC Nucleated RBCs # 0 K/uL Sodium (136-148) mmol/L Potassium (3.5-5.1) mmol/L Chloride (98-107) mmol/L Carbon Dioxide (21.0-32.0) mmol/L BUN (7.0-18.0) mg/dL Creatinine (0.8-1.3) mg/dL Est Cr Clr Drug Dosing mL/min Estimated GFR (MDRD) ml/min Glucose (74-106) mg/dL POC Glucose 125 H 127 H (60-110) mg/dL Calcium (8.5-10.1) mg/dL 06/30/19 06/30/19 Range/Units 06:05 06:28 WBC (4.0-11.0) K/uL RBC (4.50-5.90) M/uL Hgb (13.0-17.0) g/dL Hct (38.0-50.0) % MCV (80.0-98.0) fL MCH (27.0-32.0) pg MCHC (31.0-37.0) g/dL RDW Std Deviation (28.0-62.0) fl RDW Coeff of Letty (11.0-15.0) % Plt Count (150-400) K/uL MPV (7.40-12.00) fL Neut % (Auto) (48.0-80.0) % Lymph % (Auto) (16.0-40.0) % Ford % (Auto) (0.0-15.0) % Eos % (Auto) (0.0-7.0) % Baso % (Auto) (0.0-1.5) % Neut # (Auto) (1.4-5.7) K/uL Lymph # (Auto) (0.6-2.4) K/uL Ford # (Auto) (0.0-0.8) K/uL Eos # (Auto) (0.0-0.7) K/uL Baso # (Auto) (0.0-0.1) K/uL Nucleated RBC % /100WBC Nucleated RBCs # K/uL Sodium 145 (136-148) mmol/L Potassium 4.5 (3.5-5.1) mmol/L Chloride 111 H (98-107) mmol/L Carbon Dioxide 24.4 (21.0-32.0) mmol/L BUN 39 H (7.0-18.0) mg/dL Creatinine 2.7 H (0.8-1.3) mg/dL Est Cr Clr Drug Dosing 25.09 mL/min Estimated GFR (MDRD) 23.4 ml/min Glucose 139 H (74-106) mg/dL POC Glucose 135 H (60-110) mg/dL Calcium 8.2 L (8.5-10.1) mg/dL Med Orders - Current: Current Medications Acetaminophen (Tylenol) 650 mg PO Q6H PRN PRN Reason: Pain Last Admin: 06/23/19 01:09 Dose: 650 mg Atorvastatin Calcium (Lipitor) 20 mg PO DAILY [facility] Last Admin: 06/30/19 08:21 Dose: 20 mg Calcium Carbonate/Glycine (Tums) 500 mg PO TID PRN PRN Reason: Indigestion Last Admin: 06/22/19 23:42 Dose: 500 mg Clindamycin HCl (Cleocin) 300 mg PO Q6H [facility] Last Admin: 06/30/19 08:21 Dose: 300 mg Heparin Sodium (Porcine) (Heparin Sodium) 5,000 units SUBCUT Q8H [facility] Last Admin: 06/30/19 08:23 Dose: 5,000 units Lactated Ringer's (Ringers, Lactated) 1,000 mls @ 100 mls/hr IV Q10H [facility] Insulin Aspart (Novolog) 0 unit SUBCUT TIDAC [facility]; Protocol Last Admin: 06/30/19 07:59 Dose: Not Given Metronidazole (Metronidazole) 500 mg PO Q6H [facility] Last Admin: 06/30/19 03:58 Dose: 500 mg Morphine Sulfate (Morphine) 2 mg IVPUSH Q2H PRN PRN Reason: Pain Last Admin: 06/24/19 19:06 Dose: 2 mg Pantoprazole Sodium (Protonix) 40 mg PO ACBREAKFAST [facility] Last Admin: 06/30/19 06:49 Dose: 40 mg Discontinued Medications Atorvastatin Calcium (Lipitor) 20 mg PO DAILY [facility] Ciprofloxacin (Ciprofloxacin Hcl) 500 mg PO BID [facility] Last Admin: 06/26/19 22:05 Dose: 500 mg Ciprofloxacin (Ciprofloxacin Hcl) 500 mg PO Q18H [facility] Last Admin: 06/27/19 17:35 Dose: 500 mg Clindamycin HCl (Cleocin) 300 mg PO Q6H [facility] Al Hydroxide/Mg Hydroxide 15 (ml/ Lidocaine HCl 5 ml) 0 ml PO ONETIME ONE Stop: 06/23/19 08:31 Last Admin: 06/23/19 09:28 Dose: 1 each Sodium Chloride (Normal Saline) 1,000 mls @ 1,000 mls/hr IV .Bolus ONE Stop: 06/21/19 20:43 Last Admin: 06/21/19 20:10 Dose: 1,000 mls/hr Piperacillin Sod/Tazobactam (Sod 4.5 gm/ Sodium Chloride) 100 mls @ 100 mls/hr IV ONETIME ONE Stop: 06/21/19 21:33 Last Admin: 06/21/19 20:46 Dose: 100 mls/hr Sodium Chloride (Normal Saline) 1,000 mls @ 1,000 mls/hr IV .Bolus ONE Stop: 06/21/19 21:34 Last Admin: 06/21/19 20:54 Dose: 1,000 mls/hr Sodium Chloride (Normal Saline) 1,000 mls @ 1,000 mls/hr IV .Bolus ONE Stop: 06/21/19 21:35 Last Admin: 06/21/19 22:07 Dose: 1,000 mls/hr Vancomycin HCl 1.25 gm/ Sodium (Chloride) 250 mls @ 167 mls/hr IV ONETIME ONE Stop: 06/22/19 00:09 Last Admin: 06/21/19 23:31 Dose: 167 mls/hr Vancomycin HCl 0.75 gm/ Sodium (Chloride) 250 mls @ 166.667 mls/hr IV ONETIME ONE Stop: 06/22/19 03:59 Last Admin: 06/22/19 03:44 Dose: 166.667 mls/hr Vancomycin HCl 2 gm/ Sodium (Chloride) 500 mls @ 333.333 mls/hr IV Q24H [facility] Last Admin: 06/23/19 00:17 Dose: 333.333 mls/hr Vancomycin HCl 2 gm/ Sodium (Chloride) 500 mls @ 333.333 mls/hr IV Q12H [facility] Last Admin: 06/26/19 01:59 Dose: 333.333 mls/hr Pantoprazole Sodium 40 mg/ (Sodium Chloride) 10 mls @ 300 mls/hr IV NOW ONE Stop: 06/23/19 11:18 Last Admin: 06/23/19 11:49 Dose: 300 mls/hr Pantoprazole Sodium 40 mg/ (Sodium Chloride) 10 mls @ 300 mls/hr IV NOW ONE Stop: 06/23/19 21:14 Last Admin: 06/23/19 21:34 Dose: 300 mls/hr Piperacillin Sod/Tazobactam (Sod 3.375 gm/ Sodium Chloride) 50 mls @ 100 mls/ hr IV Q6H [facility] Last Admin: 06/24/19 01:38 Dose: Not Given Piperacillin Sod/Tazobactam (Sod 3.375 gm/ Sodium Chloride) 50 mls @ 100 mls/ hr IV Q6H [facility] Last Admin: 06/25/19 09:11 Dose: Not Given Ciprofloxacin/Dextrose 400 mg/ (Premix) 200 mls @ 200 mls/hr IV Q12H [facility] Last Admin: 06/26/19 09:08 Dose: 200 mls/hr Metronidazole 500 mg/ Premix 100 mls @ 100 mls/hr IV QID [facility] Last Admin: 06/26/19 06:27 Dose: 90 mls/hr Sodium Chloride (Normal Saline) 1,000 mls @ 100 mls/hr IV ASDIRECTED [facility] Stop: 06/25/19 21:14 Sodium Chloride (Normal Saline) 1,000 mls @ 125 mls/hr IV STAT ONE Stop: 06/26/19 17:15 Last Admin: 06/26/19 11:03 Dose: 125 mls/hr Sodium Chloride (Normal Saline) 1,000 mls @ 125 mls/hr IV Q10H [facility] Last Admin: 06/29/19 19:45 Dose: 100 mls/hr Sodium Chloride (Normal Saline) 1,000 mls @ 125 mls/hr IV ASDIRECTED [facility] Last Admin: 06/30/19 04:48 Dose: 125 mls/hr Metformin HCl (Glucophage) 1,000 mg PO BIDMEALS [facility] Last Admin: 06/24/19 08:17 Dose: 1,000 mg Metformin 1000 Mg (Tab) 1 each PO BIDMEALS [facility] Last Admin: 06/23/19 09:43 Dose: Not Given Atorvastatin 20 Mg (Tab) 1 each PO DAILY [facility] Last Admin: 06/22/19 09:06 Dose: 1 each Vancomycin HCl (Pharmacy To Dose - Vancomycin) 1 dose .XX ASDIRECTED [facility] - Exam Quality Assessment: DVT Prophylaxis. No: Supplemental Oxygen General: Alert, Oriented, Cooperative Lungs: Clear to Auscultation, Normal Respiratory Effort Cardiovascular: Regular Rate, Regular Rhythm, No Murmurs GI/Abdominal Exam: Normal Bowel Sounds, Soft, Non-Tender, Other (obese abdomen) Extremities: Normal Inspection, Normal Range of Motion, Non-Tender, Pedal Edema (+3 pitting edema) Neurological: No New Focal Deficit Psy/Mental Status: Alert, Normal Affect, Normal Mood Sepsis Event Note - Evaluation Sepsis Screening Result: No Definite Risk - Focused Exam Vital Signs: Vital Signs Temp Pulse Resp BP Pulse Ox Pulse Ox 06/30/19 07:50 96 06/30/19 07:42 98 F 82 16 138/66 96 06/30/19 04:00 98 F 78 17 127/60 95 06/30/19 00:19 98.4 F 90 17 145/67 H 95 Date Exam was Performed: 06/30/19 Time Exam was Performed: 10:19 - Problem List & Annotations (1) KHADRA (acute kidney injury) SNOMED Code(s): 59932334, 68480564 Code(s): N17.9 - ACUTE KIDNEY FAILURE, UNSPECIFIED Status: Acute Current Visit: Yes (2) Cellulitis SNOMED Code(s): 825312994 Code(s): L03.90 - CELLULITIS, UNSPECIFIED Status: Acute Current Visit: Yes Qualifiers: Site of cellulitis: extremity Site of cellulitis of extremity: lower extremity Laterality: left Qualified Code(s): L03.116 - Cellulitis of left lower limb (3) Chest pain SNOMED Code(s): 68271584 Code(s): R07.9 - CHEST PAIN, UNSPECIFIED Status: Acute Current Visit: Yes (4) HTN (hypertension) SNOMED Code(s): 87923075 Code(s): I10 - ESSENTIAL (PRIMARY) HYPERTENSION Status: Chronic Current Visit: Yes (5) HLD (hyperlipidemia) SNOMED Code(s): 48371372 Code(s): E78.5 - HYPERLIPIDEMIA, UNSPECIFIED Status: Chronic Current Visit: Yes (6) DM type 2 (diabetes mellitus, type 2) SNOMED Code(s): 48100825 Code(s): E11.9 - TYPE 2 DIABETES MELLITUS WITHOUT COMPLICATIONS Status: Chronic Current Visit: Yes Qualifiers: Diabetes mellitus jail insulin use: without jail use Diabetes mellitus complication status: with skin complications Diabetes mellitus complication detail: with other skin complication Qualified Code(s): E11.628 - Type 2 diabetes mellitus with other skin complications (7) Obesity SNOMED Code(s): 238907274, 719289116 Code(s): E66.9 - OBESITY, UNSPECIFIED Status: Chronic Current Visit: Yes - Problem List Review Problem List Initiated/Reviewed/Updated: Yes - My Orders Last 24 Hours: My Active Orders 06/30/19 09:30 Lactated Ringers [Ringers, Lactated] 1,000 ml IV Q10H - Plan Plan:: 69 yo male admitted for left lower extremity cellulitis. 1. L lower extremity cellulitis - Continue clindamycin - Improving, edematous and oozing. Dryer 2. Acute cholecystitis: - No further abdominal pain - Continue Flagyl. Cipro dc'd due to KHADRA. 3. KHADRA: - creatinine 2.7 today, continued slow improvement . Continue IVFs, change to LR 100. - Avoiding nephrotoxic medications. - Likely secondary to medication toxicity. - Will need close follow as outpatient. 4. HTN: - Stable, monitor 5 . DM type 2: - Monitor BS TIDAC, with Novolog SSI Diet: ADA, low fat Code Status: Full code VTE prophylaxis: Heparin Dispo: possible home in am if KHADRA continues to show improvement
[2019-06-30] MEDS: Lactated Ringers 1,000 ML IV SCH ×2 (10:04→20:11)
[2019-07-01] MEDS: Heparin Sodium 5,000 Units/ML Vial SUBCUT SCH ×2 (01:34→08:16)
[2019-07-01] MEDS: Clindamycin HCl 150 MG Cap PO SCH ×2 (04:18→08:16)
[2019-07-01] MEDS: metroNIDAZOLE 250 MG Tab PO SCH ×2 (04:18→08:16)
[2019-07-01 06:00] LABS: CARBON DIOXIDE,CO2 24.3 mmol/L (21.0-32.0); POTASSIUM,K 4.1 mmol/L (3.5-5.1)
[2019-07-01] MEDS: Lactated Ringers 1,000 ML IV SCH (06:43)
[2019-07-01] MEDS: Insulin Aspart 100 Units/ML 3 ML Pen SUBCUT SCH ×2 (06:43→11:38)
[2019-07-01] MEDS: Pantoprazole 40 MG Tab.CR PO SCH (06:43)
[2019-07-01] MEDS: atorvaSTATin 20 MG Tab PO SCH (08:16)
--- NOTE | 2019-07-01 10:15 | PCM.DCSUM1 ---
Discharge Summary - Hospital Course Brief History: 69 yo male with pmh of DM, HTN, and obesity who presents with two day history of redness and swelling of the left lower leg. He stated he noticed it after he bumped his hip and noticed it was starting to get tight. The redness has now spread down to his calf. He denies any pain, shortness of breath, or fevers. In the ED he had a CT scan of the leg which noted subcutaneous soft tissue edema but no deep tissue involvement. WBC was 14,900 and CReatinine was 1.8. PAtient does not know what his baseline creatinine was but was told once it was iffy once but fine on recheck. Diagnosis: Stroke: No - Discharge Data Discharge Date: 07/01/19 Discharge Disposition: Home, W Home Health Agency 06 Condition: Good - Referral to Home Health Date of Face to Face Encounter: 07/01/19 Reason for Homebound Status: He is homebound unable to leave the house unless caregiver is present and with a cane for stable ambulation. Primary Care Physician: Katarina Ochoa NP Skilled Need: Jose is in need of nursing home care to help assess LLE healing as well as vital signs. May need wound care as blisters open on leg from edema. He would benefit from PT/OT evaluation for ambulation and strengthening as well as home safety evaluation. - Discharge Diagnosis/Problem(s) (1) KHADRA (acute kidney injury) SNOMED Code(s): 57583713, 38011151 ICD Code: N17.9 - ACUTE KIDNEY FAILURE, UNSPECIFIED Status: Acute Current Visit: Yes (2) Cellulitis SNOMED Code(s): 620354697 ICD Code: L03.90 - CELLULITIS, UNSPECIFIED Status: Acute Current Visit: Yes Qualifiers: Site of cellulitis: extremity Site of cellulitis of extremity: lower extremity Laterality: left Qualified Code(s): L03.116 - Cellulitis of left lower limb (3) Chest pain SNOMED Code(s): 89423949 ICD Code: R07.9 - CHEST PAIN, UNSPECIFIED Status: Acute Current Visit: Yes (4) HTN (hypertension) SNOMED Code(s): 05956472 ICD Code: I10 - ESSENTIAL (PRIMARY) HYPERTENSION Status: Chronic Current Visit: Yes (5) HLD (hyperlipidemia) SNOMED Code(s): 62538750 ICD Code: E78.5 - HYPERLIPIDEMIA, UNSPECIFIED Status: Chronic Current Visit: Yes (6) DM type 2 (diabetes mellitus, type 2) SNOMED Code(s): 02283181 ICD Code: E11.9 - TYPE 2 DIABETES MELLITUS WITHOUT COMPLICATIONS Status: Chronic Current Visit: Yes Qualifiers: Diabetes mellitus ferry terminal supervisor insulin use: without residential use Diabetes mellitus complication status: with skin complications Diabetes mellitus complication detail: with other skin complication Qualified Code(s): E11.628 - Type 2 diabetes mellitus with other skin complications (7) Obesity SNOMED Code(s): 414949093, 453374211 ICD Code: E66.9 - OBESITY, UNSPECIFIED Status: Chronic Current Visit: Yes (8) Cholecystitis SNOMED Code(s): 62442931 ICD Code: K81.9 - CHOLECYSTITIS, UNSPECIFIED Status: Acute Current Visit : Yes - Patient Summary/Data Consults: Consultations 06/24/19 11:15 Consult to Physician [CONS] Routine Hospital Course: Admitting Diagnoses LLE cellulitis KHADRA Discharge Diagnoses: LLE cellulitis KHADRA Acute Amina Other PMH: HTN HLD DM Type 2 Obesity Jose was admitted secondary to cellulitis of his L lower leg and associated KHADRA. He was started on Vancomycin and IVFs. He improved slowly. CT of leg revealed soft tissue swelling, no fluid collection or gas. US of leg ruled out DVT. KHADRA improved to normal cellulitis improved. On day 2 of admission he experienced chest pain dnd RUQ pain. abd ct obtained which revealed acute cholecystitis, RUQ obtained as well, no gallstones. Dr Farrell consulted, continue Zosyn and monitor. He improved quickly. KHADRA returned after initiation of Zosyn. Zosyn stopped and he was transitioned to Cipro and Flagyl. IVFs restarted. KHADRA peaked at Cr 4.0 and BUN 40. It then continued to decrease daily , today 32 and 2.5. He is eating well and eager to go home. Leg continues to have edema with bullae but is much dryer than days prior and erythema is significantly improved. He will continue 3 more days of clindamycin other parker other courses of antibiotics were completed. He was told to hold his Lisinopril at home until follow up with PCP due to KHADRA. He is to stay away from Aleve and NSAIDs as well due to KHADRA. he verbalized understanding. He denies any concerns on discharge. He will be discharge home today, follow up with PCP in 1 week with labs to check renal function. He is to return to ED or clinic sooner if concerns should arise. Home health consulted - Patient Instructions Diet: Heart Healthy Diet, Drink 8-10+ Glasses/Day, Diabetic Diet Activity: As Tolerated, Elevate Extremity, No Strenuous Activities Driving: Do Not Drive Showering/Bathing: May Shower Notify Provider of: Fever, Increased Pain, Swelling and Redness, Drainage, Nausea and/or Vomiting - Discharge Plan *PRESCRIPTION DRUG MONITORING PROGRAM REVIEWED*: Not Applicable *COPY OF PRESCRIPTION DRUG MONITORING REPORT IN PATIENT CECILIO: Not Applicable Prescriptions/Med Rec: clindamycin HCL [Cleocin HCl] 300 mg PO Q6H #12 capsule Home Medications: Home Meds Ferrous Sulfate 325 mg PO DAILY 06/22/19 [History] Saw/Py/Net/Pumpk/Beta/Ly/Zn/Cu [Prostate Control Softgel] 1 cap PO DAILY [History] atorvaSTATin [Lipitor] 20 mg PO DAILY 06/22/19 [History] metFORMIN [Glucophage] 1,000 mg PO BIDMEALS 06/22/19 [History] Acetaminophen [Tylenol] 650 mg PO Q6H PRN tablet 07/01/19 [Rx] Lisinopril/Hydrochlorothiazide [Lisinopril-Hctz 20-25 mg Tab] 20 - 25 mg PO DAILY #0 07/01/19 [Rx] clindamycin HCL [Cleocin HCl] 300 mg PO Q6H #12 capsule 07/01/19 [Rx] Oxygen Therapy Mode: Room Air Patient Handouts: Cholelithiasis, [id number], Clindamycin capsules, Cellulitis, Adult, [id number], Cholecystitis Referrals: [facility] [Outside] Katarina Ochoa NP [Primary Care Provider] - 07/03/19 10:30 am Usha Farrell MD [Physician] - 07/11/19 8:30 am - Discharge Summary/Plan Comment DC Time >30 min.: No - Patient Data Vitals - Most Recent: Last Vital Signs Temp 97.3 F 07/01/19 08:00 Pulse 80 07/01/19 08:00 Resp 18 07/01/19 08:00 BP 126/54 L 07/01/19 08:00 Pulse Ox 96 07/01/19 08:00 Weight - Most Recent: 147.735 kg I&O - Last 24 hours: Intake & Output 06/30/19 07/01/19 07/01/19 22:59 06:59 14:59 Intake Total 2845 2880 Output Total 800 3500 Balance 2045 -620 Lab Results - Last 24 hrs: Laboratory Results - last 24 hr 06/30/19 06/30/19 07/01/19 Range/Units 11:07 17:20 05:30 WBC 8.72 (4.0-11.0) K/uL RBC 4.35 L (4.50-5.90) M/uL Hgb 10.7 L (13.0-17.0) g/dL Hct 35.5 L (38.0-50.0) % MCV 81.6 (80.0-98.0) fL MCH 24.6 L (27.0-32.0) pg MCHC 30.1 L (31.0-37.0) g/dL RDW Std Deviation 51.3 (28.0-62.0) fl RDW Coeff of Letty 17 H (11.0-15.0) % Plt Count 380 (150-400) K/uL MPV 8.60 (7.40-12.00) fL Neut % (Auto) 81.5 H (48.0-80.0) % Lymph % (Auto) 6.9 L (16.0-40.0) % Bent % (Auto) 9.1 (0.0-15.0) % Eos % (Auto) 2.3 (0.0-7.0) % Baso % (Auto) 0.2 (0.0-1.5) % Neut # (Auto) 7.1 H (1.4-5.7) K/uL Lymph # (Auto) 0.6 (0.6-2.4) K/uL Bent # (Auto) 0.8 (0.0-0.8) K/uL Eos # (Auto) 0.2 (0.0-0.7) K/uL Baso # (Auto) 0.0 (0.0-0.1) K/uL Nucleated RBC % 0.0 /100WBC Nucleated RBCs # 0 K/uL Sodium (136-148) mmol/L Potassium (3.5-5.1) mmol/L Chloride (98-107) mmol/L Carbon Dioxide (21.0-32.0) mmol/L BUN (7.0-18.0) mg/dL Creatinine (0.8-1.3) mg/dL Est Cr Clr Drug Dosing mL/min Estimated GFR (MDRD) ml/min Glucose (74-106) mg/dL POC Glucose 106 118 H (60-110) mg/dL Calcium (8.5-10.1) mg/dL 07/01/19 07/01/19 Range/Units 05:30 06:17 WBC (4.0-11.0) K/uL RBC (4.50-5.90) M/uL Hgb (13.0-17.0) g/dL Hct (38.0-50.0) % MCV (80.0-98.0) fL MCH (27.0-32.0) pg MCHC (31.0-37.0) g/dL RDW Std Deviation (28.0-62.0) fl RDW Coeff of Letty (11.0-15.0) % Plt Count (150-400) K/uL MPV (7.40-12.00) fL Neut % (Auto) (48.0-80.0) % Lymph % (Auto) (16.0-40.0) % Bent % (Auto) (0.0-15.0) % Eos % (Auto) (0.0-7.0) % Baso % (Auto) (0.0-1.5) % Neut # (Auto) (1.4-5.7) K/uL Lymph # (Auto) (0.6-2.4) K/uL Bent # (Auto) (0.0-0.8) K/uL Eos # (Auto) (0.0-0.7) K/uL Baso # (Auto) (0.0-0.1) K/uL Nucleated RBC % /100WBC Nucleated RBCs # K/uL Sodium 144 (136-148) mmol/L Potassium 4.1 (3.5-5.1) mmol/L Chloride 112 H (98-107) mmol/L Carbon Dioxide 24.3 (21.0-32.0) mmol/L BUN 32 H (7.0-18.0) mg/dL Creatinine 2.5 H (0.8-1.3) mg/dL Est Cr Clr Drug Dosing 27.10 mL/min Estimated GFR (MDRD) 25.6 ml/min Glucose 125 H (74-106) mg/dL POC Glucose 120 H (60-110) mg/dL Calcium 7.9 L (8.5-10.1) mg/dL Med Orders - Current: Current Medications Acetaminophen (Tylenol) 650 mg PO Q6H PRN PRN Reason: Pain Last Admin: 06/23/19 01:09 Dose: 650 mg Atorvastatin Calcium (Lipitor) 20 mg PO DAILY [facility] Last Admin: 07/01/19 08:16 Dose: 20 mg Calcium Carbonate/Glycine (Tums) 500 mg PO TID PRN PRN Reason: Indigestion Last Admin: 06/22/19 23:42 Dose: 500 mg Clindamycin HCl (Cleocin) 300 mg PO Q6H [facility] Last Admin: 07/01/19 08:16 Dose: 300 mg Heparin Sodium (Porcine) (Heparin Sodium) 5,000 units SUBCUT Q8H [facility] Last Admin: 07/01/19 08:16 Dose: 5,000 units Lactated Ringer's (Ringers, Lactated) 1,000 mls @ 100 mls/hr IV Q10H [facility] Last Admin: 07/01/19 06:43 Dose: 100 mls/hr Insulin Aspart (Novolog) 0 unit SUBCUT TIDAC [facility]; Protocol Last Admin: 07/01/19 06:43 Dose: Not Given Metronidazole (Metronidazole) 500 mg PO Q6H [facility] Last Admin: 07/01/19 08:16 Dose: 500 mg Morphine Sulfate (Morphine) 2 mg IVPUSH Q2H PRN PRN Reason: Pain Last Admin: 06/24/19 19:06 Dose: 2 mg Pantoprazole Sodium (Protonix) 40 mg PO ACBREAKFAST [facility] Last Admin: 07/01/19 06:43 Dose: 40 mg Discontinued Medications Atorvastatin Calcium (Lipitor) 20 mg PO DAILY [facility] Ciprofloxacin (Ciprofloxacin Hcl) 500 mg PO BID [facility] Last Admin: 06/26/19 22:05 Dose: 500 mg Ciprofloxacin (Ciprofloxacin Hcl) 500 mg PO Q18H [facility] Last Admin: 06/27/19 17:35 Dose: 500 mg Clindamycin HCl (Cleocin) 300 mg PO Q6H [facility] Hydroxide/Mg Hydroxide 15 (ml/ Lidocaine HCl 5 ml) 0 ml PO ONETIME ONE Stop: 06/23/19 08:31 Last Admin: 06/23/19 09:28 Dose: 1 each Sodium Chloride (Normal Saline) 1,000 mls @ 1,000 mls/hr IV .Bolus ONE Stop: 06/21/19 20:43 Last Admin: 06/21/19 20:10 Dose: 1,000 mls/hr Piperacillin Sod/Tazobactam (Sod 4.5 gm/ Sodium Chloride) 100 mls @ 100 mls/hr IV ONETIME ONE Stop: 06/21/19 21:33 Last Admin: 06/21/19 20:46 Dose: 100 mls/hr Sodium Chloride (Normal Saline) 1,000 mls @ 1,000 mls/hr IV .Bolus ONE Stop: 06/21/19 21:34 Last Admin: 06/21/19 20:54 Dose: 1,000 mls/hr Sodium Chloride (Normal Saline) 1,000 mls @ 1,000 mls/hr IV .Bolus ONE Stop: 06/21/19 21:35 Last Admin: 06/21/19 22:07 Dose: 1,000 mls/hr Vancomycin HCl 1.25 gm/ Sodium (Chloride) 250 mls @ 167 mls/hr IV ONETIME ONE Stop: 06/22/19 00:09 Last Admin: 06/21/19 23:31 Dose: 167 mls/hr Vancomycin HCl 0.75 gm/ Sodium (Chloride) 250 mls @ 166.667 mls/hr IV ONETIME ONE Stop: 06/22/19 03:59 Last Admin: 06/22/19 03:44 Dose: 166.667 mls/hr Vancomycin HCl 2 gm/ Sodium (Chloride) 500 mls @ 333.333 mls/hr IV Q24H [facility] Last Admin: 06/23/19 00:17 Dose: 333.333 mls/hr Vancomycin HCl 2 gm/ Sodium (Chloride) 500 mls @ 333.333 mls/hr IV Q12H [facility] Last Admin: 06/26/19 01:59 Dose: 333.333 mls/hr Pantoprazole Sodium 40 mg/ (Sodium Chloride) 10 mls @ 300 mls/hr IV NOW ONE Stop: 06/23/19 11:18 Last Admin: 06/23/19 11:49 Dose: 300 mls/hr Pantoprazole Sodium 40 mg/ (Sodium Chloride) 10 mls @ 300 mls/hr IV NOW ONE Stop: 06/23/19 21:14 Last Admin: 06/23/19 21:34 Dose: 300 mls/hr Piperacillin Sod/Tazobactam (Sod 3.375 gm/ Sodium Chloride) 50 mls @ 100 mls/ hr IV Q6H [facility] Last Admin: 06/24/19 01:38 Dose: Not Given Piperacillin Sod/Tazobactam (Sod 3.375 gm/ Sodium Chloride) 50 mls @ 100 mls/ hr IV Q6H [facility] Last Admin: 06/25/19 09:11 Dose: Not Given Ciprofloxacin/Dextrose 400 mg/ (Premix) 200 mls @ 200 mls/hr IV Q12H [facility] Last Admin: 06/26/19 09:08 Dose: 200 mls/hr Metronidazole 500 mg/ Premix 100 mls @ 100 mls/hr IV QID [facility] Last Admin: 06/26/19 06:27 Dose: 90 mls/hr Sodium Chloride (Normal Saline) 1,000 mls @ 100 mls/hr IV ASDIRECTED [facility] Stop: 06/25/19 21:14 Sodium Chloride (Normal Saline) 1,000 mls @ 125 mls/hr IV STAT ONE Stop: 06/26/19 17:15 Last Admin: 06/26/19 11:03 Dose: 125 mls/hr Sodium Chloride (Normal Saline) 1,000 mls @ 125 mls/hr IV Q10H [facility] Last Admin: 06/29/19 19:45 Dose: 100 mls/hr Sodium Chloride (Normal Saline) 1,000 mls @ 125 mls/hr IV ASDIRECTED [facility] Last Admin: 06/30/19 04:48 Dose: 125 mls/hr Metformin HCl (Glucophage) 1,000 mg PO BIDMEALS [facility] Last Admin: 06/24/19 08:17 Dose: 1,000 mg Metformin 1000 Mg (Tab) 1 each PO BIDMEALS [facility] Last Admin: 06/23/19 09:43 Dose: Not Given Atorvastatin 20 Mg (Tab) 1 each PO DAILY [facility] Last Admin: 06/22/19 09:06 Dose: 1 each Vancomycin HCl (Pharmacy To Dose - Vancomycin) 1 dose .XX ASDIRECTED [facility] - Exam General: Reports: Alert, Oriented Lungs: Reports: Clear to Auscultation, Normal Respiratory Effort Cardiovascular: Reports: Regular Rate, Regular Rhythm GI/Abdominal Exam: Normal Bowel Sounds, Soft, Non-Tender Back Exam: Reports: Normal Inspection, Full Range of Motion Extremities: Normal Range of Motion, Pedal Edema (+2 pitting edema to LLE) Wound/Incisions: Reports: Erythema Improving (much improved, now contained only to lower leg and is not any longer bright red or painful. Bullae noted, much improved to posterior lower leg and lateral lower leg.)
== END 2019-07-01 12:05 | disposition home health service (06) | DRG 638 ==
LOC: MW.ED 18:18 → MW.MS 23:58 → OBSVTOIN 06-22 21:58 → MW.MS 06-23 03:52
PROVIDERS: ADMIT Internal Medicine; ATTEND Internal Medicine
DX: E11.628 Type 2 diabetes mellitus with other skin complications (principal); L03.116 Cellulitis of left lower limb; K81.0 Acute cholecystitis; Z68.42 Body mass index [BMI] 45.0-49.9, adult; R10.11 Right upper quadrant pain; B96.89 Other specified bacterial agents as the cause of diseases classified elsewhere; L02.416 Cutaneous abscess of left lower limb; N17.9 Acute kidney failure, unspecified; E66.9 Obesity, unspecified; Z85.828 Personal history of other malignant neoplasm of skin; R07.9 Chest pain, unspecified; I10 Essential (primary) hypertension; E78.5 Hyperlipidemia, unspecified; E78.00 Pure hypercholesterolemia, unspecified; E66.01 Morbid (severe) obesity due to excess calories; Z79.84 Long term (current) use of oral hypoglycemic drugs; Z79.899 Other long term (current) drug therapy; E11.9 Type 2 diabetes mellitus without complications
CPT/HCPCS: 36415; 51798; 73700-26-LT; 73700-LT; 74176; 74176-26; 76705; 76705-26; 76775; 76775-26; 80048; 80053; 80061; 80202; 81001; 82570; 82803; 82962; 83036; 83605; 83690; 84300; 84484; 85025; 85652; 86140; 87040; 87077; 87186; 93005; 93971-26-LT; 93971-LT; 96361; 96365; 96367; 99284; 99285-25; A9270-GY; C9113; J0744; J1644; J1815-GY; J2270; J2543; J3370; J3490; J7030; J7040; J7050; J7120

== ENCOUNTER 2019-07-05 17:17 | Emergency (ER) | payer MEDICARE, OTHER ==
[2019-07-05] MEDS ORDERED: Sodium Chloride 0.9% 1,000 ML IV ONE (17:32)
--- NOTE | 2019-07-05 17:34 | EDM.PDOC ---
ED HPI GENERAL MEDICAL PROBLEM - General Chief Complaint: Skin Complaint Stated Complaint: RASH Time Seen by Provider: 07/05/19 17:22 Source of Information: Reports: Patient History Limitations: Reports: No Limitations - History of Present Illness INITIAL COMMENTS - FREE TEXT/NARRATIVE: HISTORY AND PHYSICAL: History of present illness: Patient is a 69-year-old male who presents to the emergency room with concerns of rash and itching to his trunk. He states earlier this week he was admitted to [facility] for cellulitis of his left lower extremity. During that time he was receiving IV clindamycin and completed 3 days of oral clindamycin. His last dose of antibiotic was over 24 hours ago. He states this afternoon he developed a rash to his low back with severe itching. Patient denies any fever , chills, headache, change in vision, syncope or near syncope. Denies any chest pain, back pain, shortness of breath or cough. Denies any abdominal pain, nausea , vomiting, diarrhea, constipation or dysuria. Has not noted any blood in urine or stool. Patient has been eating and drinking appropriately. Has not tried any [id number] products, "I didn't know what I should take". Denies any new detergents or materials/exposures. Besides the Clindamycin, no new medications. Review of systems: As per history of present illness and below otherwise all systems reviewed and negative. Past medical history: As per history of present illness and as reviewed below otherwise noncontributory. Surgical history: As per history of present illness and as reviewed below otherwise noncontributory. Social history: See social history for further information Family history: As per history of present illness and as reviewed below otherwise noncontributory. Physical exam: General: Well developed and well nourished 69-year-old male. Alert and oriented. Nontoxic-appearing and in no acute distress. HEENT: Atraumatic, normocephalic, pupils equal and reactive bilaterally, negative for conjunctival pallor or scleral icterus (left), mucous membranes moist, TMs normal bilaterally, throat clear, neck supple, nontender, trachea midline. No drooling or trismus noted. No meningeal signs. No hot potato voice noted. Lungs: Clear to auscultation, breath sounds equal bilaterally, chest nontender. Breathes easily and even. Heart: S1S2, regular rate and rhythm without overt murmur Abdomen: Soft, obese, nontender. Negative for masses and costovertebral tenderness. Skin: Drug rash appears along the low waistline of patient's back just above the pant line. Nontoxic in appearance. Otherwise skin is intact, warm, dry. No lesions or rashes noted. Extremities: Atraumatic, moves all extremities per self without difficulty or deficits, negative for cords or calf pain. Neurovascular unremarkable. Neuro: Awake, alert, oriented. Cranial nerves II through XII unremarkable. Cerebellum unremarkable. Motor and sensory unremarkable throughout. Exam nonfocal. Notes: Patient states he is receiving home-Health starting Sunday and is due to have blood drawn that day. He has a follow up appointment with Dr Farrell next week as well (regarding his cellulitis f/u). NO evidence of SJS/TEN, erythroderma, or angioedema. Patient states he does feel better after the IV fluids and medications. His vital signs remained stable. We reviewed signs and symptoms that would prompt him to return to the emergency room. I did encourage him to talk with his home health nurse on Sunday so she can closely follow this. Supportive care measures were reviewed and discussed. Voices understanding and is agreeable to plan of care. Denies any further questions or concerns at this time. Diagnostics: None Therapeutics: IV fluids, Solu-Medrol, Benadryl, Pepcid Prescription: Medrol Impression: Drug Rash Plan: 1. This is likely a drug rash; please inform your primary care provider as you should add Clindamycin to your allergy list. 2. While symptomatic continue to routinely take Benadryl 50mg every 4-6 hours and Zantac 150mg twice daily. Take the Medrol dose pack as prescribed. 3. You may use topical calamine lotion, cool tempid oatmeal baths, Aveeno bath/ lotions. 4. Please follow up with your Primary care doctor tomorrow. Return to the ED as needed and as discussed. Definitive disposition and diagnosis as appropriate pending reevaluation and review of above. - Related Data Allergies Allergy/AdvReac Type Severity Reaction Status Date / Time No Known Allergies Allergy Verified 07/05/19 17:23 Home Meds: Home Meds Ferrous Sulfate 325 mg PO DAILY 06/22/19 [History] Saw/Py/Net/Pumpk/Beta/Ly/Zn/Cu [Prostate Control Softgel] 1 cap PO BID 06/22/19 [History] atorvaSTATin [Lipitor] 20 mg PO DAILY 06/22/19 [History] metFORMIN [Glucophage] 1,000 mg PO BIDMEALS 06/22/19 [History] Aspirin 81 mg PO DAILY 07/05/19 [History] methylPREDNISolone [Medrol] 1 dose PO DAILY 6 Days #1 dospk 07/05/19 [Rx] Past Medical History HEENT History: Reports: Impaired Vision Cardiovascular History: Reports: High Cholesterol, Hypertension Respiratory History: Reports: None Gastrointestinal History: Reports: None Genitourinary History: Reports: None Musculoskeletal History: Reports: None Neurological History: Reports: None Psychiatric History: Reports: None Endocrine/Metabolic History: Reports: Diabetes, Type II Hematologic History: Reports: None Immunologic History: Reports: None Oncologic (Cancer) History: Reports: Basal Cell Carcinoma Other Oncologic History: Removal on left side of face a couple weeks ago. Dermatologic History: Reports: Cellulitis - Infectious Disease History Infectious Disease History: Reports: Mumps - Past Surgical History Head Surgeries/Procedures: Reports: None HEENT Surgical History: Reports: Eye Surgery Other HEENT Surgeries/Procedures: Right removal of eye, has glass eye. Cardiovascular Surgical History: Reports: None Respiratory Surgical History: Reports: None GI Surgical History: Reports: None Male Surgical History: Reports: None Endocrine Surgical History: Reports: None Neurological Surgical History: Reports: None Musculoskeletal Surgical History: Reports: None Oncologic Surgical History: Reports: None Dermatological Surgical History: Reports: None Social & Family History - Family History Family Medical History: Noncontributory - Tobacco Use Smoking Status *Q: Never Smoker Second Hand Smoke Exposure: No - Caffeine Use Caffeine Use: Reports: Coffee - Recreational Drug Use Recreational Drug Use: No ED ROS GENERAL - Review of Systems Review Of Systems: Comprehensive ROS is negative, except as noted in HPI. ED EXAM, SKIN/RASH Exam: See Below (See dictation) Course - Vital Signs Last Recorded V/S: Last Vital Signs Temp 96.9 F 07/05/19 17:24 Pulse 102 H 07/05/19 17:24 Resp 18 07/05/19 17:24 BP 120/78 07/05/19 17:24 Pulse Ox 96 07/05/19 17:24 - Orders/Labs/Meds Orders: Active Orders 24 hr Category Date Time Status Sodium Chloride 0.9% [Normal Saline] 500 ml Med 07/05/19 17:45 Active IV STAT Medication Orders Sodium Chloride (Normal Saline) 500 mls @ 999 mls/hr IV STAT [place] Last Admin: 07/05/19 17:50 Dose: 999 mls/hr Meds: Medications Generic Name Dose Route Start Last Admin Trade Name Freq PRN Reason Stop Dose Admin Sodium Chloride 500 mls @ 999 mls/hr 07/05/19 17:45 07/05/19 17:50 Normal Saline IV 999 mls/hr STAT [place] Administration Discontinued Medications Generic Name Dose Route Start Last Admin Trade Name Freq PRN Reason Stop Dose Admin Diphenhydramine HCl 50 mg 07/05/19 17:32 07/05/19 17:51 Benadryl IVPUSH 07/05/19 17:33 50 mg ONETIME ONE Administration Famotidine 20 mg 07/05/19 18:22 Pepcid IVPUSH 07/05/19 18:23 ONETIME ONE Sodium Chloride 1,000 mls @ 999 mls/hr 07/05/19 17:32 Normal Saline IV 07/05/19 18:32 STAT ONE Methylprednisolone Sodium Succinate 125 mg 07/05/19 17:32 07/05/19 17:50 Solu-Medrol IVPUSH 07/05/19 17:33 125 mg ONETIME ONE Administration Departure - Departure Time of Disposition: 18:23 Disposition: Home, Self-Care 01 Clinical Impression: Drug rash - Discharge Information Prescriptions: methylPREDNISolone [Medrol] 1 dose PO DAILY 6 Days #1 dospk Instructions: Drug Rash Referrals: Katarina Ochoa GOVERNMENT GUARD [Primary Care Provider] - Forms: ED Department Discharge Additional Instructions: The following information is given to patients seen in the emergency department who are being discharged to home. This information is to outline your options for follow-up care. We provide all patients seen in our emergency department with a follow-up referral. The need for follow-up, as well as the timing and circumstances, are variable depending upon the specifics of your emergency department visit. If you don't have a primary care physician on staff, we will provide you with a referral. We always advise you to contact your personal physician following an emergency department visit to inform them of the circumstance of the visit and for follow-up with them and/or the need for any referrals to a consulting specialist. The emergency department will also refer you to a specialist when appropriate. This referral assures that you have the opportunity for follow-up care with a specialist. All of these measure are taken in an effort to provide you with optimal care, which includes your follow-up. Under all circumstances we always encourage you to contact your private physician who remains a resource for coordinating your care. When calling for follow-up care, please make the office aware that this follow-up is from your recent emergency room visit. If for any reason you are refused follow-up, please contact the [facility] Emergency Department at and asked to speak to the emergency department charge nurse. [facility] [address] [place] [id number] [facility] [address] [place] [id number] 1. This is likely a drug rash; please inform your primary care provider as you should add Clindamycin to your allergy list. 2. While symptomatic continue to routinely take Benadryl 50mg every 4-6 hours and Zantac 150mg twice daily. Take the Medrol dose pack as prescribed. 3. You may use topical calamine lotion, cool tempid oatmeal baths, Aveeno bath/ lotions. 4. Please follow up with your Primary care doctor tomorrow. Return to the ED as needed and as discussed. Sepsis Event Note - Evaluation Sepsis Screening Result: No Definite Risk - Focused Exam Vital Signs: Vital Signs Temp Pulse Resp BP Pulse Ox 07/05/19 17:24 96.9 F 102 H 18 120/78 96 Date Exam was Performed: 07/05/19 Time Exam was Performed: 18:27 - My Orders Last 24 Hours: My Active Orders 07/05/19 17:45 Sodium Chloride 0.9% [Normal Saline] 500 ml IV STAT - Assessment/Plan Last 24 Hours: My Active Orders 07/05/19 17:45 Sodium Chloride 0.9% [Normal Saline] 500 ml IV STAT
[2019-07-05] MEDS: Sodium Chloride 0.9% 500 ML IV SCH (17:50)
[2019-07-05] MEDS: methylPREDNISolone Sodium Succinate 125 MG/2 ML SDV IVPUSH ONE (17:50)
[2019-07-05] MEDS: diphenhydrAMINE 50 MG/ML SDV IVPUSH ONE (17:51)
[2019-07-05] MEDS: Famotidine 20 MG/2 ML SDV IVPUSH ONE (18:42)
== END 2019-07-05 18:41 | disposition home or self-care (01) ==
LOC: MW.ED 17:17
DX: L27.0 Generalized skin eruption due to drugs and medicaments taken internally (principal); T36.8X5A Adverse effect of other systemic antibiotics, initial encounter; I10 Essential (primary) hypertension; E78.00 Pure hypercholesterolemia, unspecified; E11.9 Type 2 diabetes mellitus without complications; Z79.82 Long term (current) use of aspirin; Z79.84 Long term (current) use of oral hypoglycemic drugs; Z79.899 Other long term (current) drug therapy
CPT/HCPCS: 96361; 96374; 96375; 99282; J1200; J2930; J7040; 99283

== ENCOUNTER 2019-07-15 11:21 | Inpatient (IN) | payer MEDICARE, OTHER ==
[2019-07-15] MEDS ORDERED: Sodium Chloride 0.9% 2.5 ML Syringe FLUSH PRN (11:48)
[2019-07-15] MEDS ORDERED: Sodium Chloride 0.9% 10 ML Syringe FLUSH PRN (11:48)
--- NOTE | 2019-07-15 11:50 | EDM.PDOC ---
ED HPI GENERAL MEDICAL PROBLEM - General Chief Complaint: Skin Complaint Stated Complaint: INFECTION IN LT LEG Time Seen by Provider: 07/15/19 11:50 Source of Information: Reports: Patient History Limitations: Reports: No Limitations - History of Present Illness INITIAL COMMENTS - FREE TEXT/NARRATIVE: HISTORY AND PHYSICAL: History of present illness: Patient is a 69-year-old male diabetic presents to the ED for infection of his left leg. Patient states he initially was seen on June 21 for left leg cellulitis that was tracking up his leg and was admitted for IV antibiotics. He saw Dr. Farrell yesterday for wound care. He states this morning he woke up and has tracking again up his leg on the medial and lateral aspects of the thighs. He denies any fevers, chills, worsening pain. He states he is no long taking PO antibiotics. Review of systems: As per history of present illness and below otherwise all systems reviewed and negative. Past medical history: As per history of present illness and as reviewed below otherwise noncontributory. Surgical history: As per history of present illness and as reviewed below otherwise noncontributory. Social history: No reported history of drug or alcohol abuse. Family history: As per history of present illness and as reviewed below otherwise noncontributory. Physical exam: General: Patient sitting comfortably in no acute distress and nontoxic appearing HEENT: Atraumatic, normocephalic, pupils reactive, negative for conjunctival pallor or scleral icterus, mucous membranes moist, throat clear, neck supple, nontender, trachea midline. No meningeal signs. Lungs: Clear to auscultation, breath sounds equal bilaterally, chest nontender. Heart: S1S2, regular, negative for clicks, rubs, or overt murmur. Abdomen: Soft, nondistended, nontender. Negative for masses or hepatosplenomegaly. Negative for costovertebral tenderness. No rigidity, rebound , guarding. Pelvis: Stable nontender. Genitourinary: Deferred. Rectal: Deferred. Extremities: Atraumatic, negative for cords or calf pain. Neurovascular unremarkable. Neuro: Awake, alert, oriented. Cranial nerves II through XII unremarkable. Cerebellum unremarkable. Motor and sensory unremarkable throughout. Exam nonfocal. Notes: Diagnostics: CBC, CMP, Lactate, blood culture Therapeutics: IV vancomycin Prescriptions: Impression: Cellulitis Plan: Discussed with Dr. Cm, patient will be admitted to inpatient telemetry for IV antibiotics Definitive disposition and diagnosis as appropriate pending reevaluation and review of above. - Related Data Allergies Allergy/AdvReac Type Severity Reaction Status Date / Time No Known Allergies Allergy Verified 07/15/19 11:48 Home Meds: Home Meds Aspirin 1 tab PO DAILY 07/15/19 [History] Ferrous Sulfate 1 tab PO DAILY 07/15/19 [History] Saw/Vit E/Sod Johana/Lyc/Beta/Pyg [Prostate Health Caplet] 1 tab PO BID 07/15/19 [ History] atorvaSTATin [Lipitor] 20 mg PO DAILY 07/15/19 [History] metFORMIN [Glucophage] 1,000 mg PO BID 07/15/19 [History] Past Medical History HEENT History: Reports: Impaired Vision Cardiovascular History: Reports: High Cholesterol, Hypertension Respiratory History: Reports: None Gastrointestinal History: Reports: None Genitourinary History: Reports: None Musculoskeletal History: Reports: None Neurological History: Reports: None Psychiatric History: Reports: None Endocrine/Metabolic History: Reports: Diabetes, Type II Hematologic History: Reports: None Immunologic History: Reports: None Oncologic (Cancer) History: Reports: Basal Cell Carcinoma Other Oncologic History: Removal on left side of face a couple weeks ago. Dermatologic History: Reports: Cellulitis - Infectious Disease History Infectious Disease History: Reports: Mumps - Past Surgical History Head Surgeries/Procedures: Reports: None HEENT Surgical History: Reports: Eye Surgery Other HEENT Surgeries/Procedures: Right removal of eye, has glass eye. Cardiovascular Surgical History: Reports: None Respiratory Surgical History: Reports: None GI Surgical History: Reports: None Male Surgical History: Reports: None Endocrine Surgical History: Reports: None Neurological Surgical History: Reports: None Musculoskeletal Surgical History: Reports: None Oncologic Surgical History: Reports: None Dermatological Surgical History: Reports: None Social & Family History - Family History Family Medical History: Noncontributory - Caffeine Use Caffeine Use: Reports: Coffee ED ROS GENERAL - Review of Systems Review Of Systems: Comprehensive ROS is negative, except as noted in HPI. ED EXAM, SKIN/RASH Exam: See Below (see dictation) Course - Vital Signs Last Recorded V/S: Last Vital Signs Temp 96.9 F 07/15/19 11:46 Pulse 89 07/15/19 12:32 Resp 16 07/15/19 12:32 BP 122/72 07/15/19 12:32 Pulse Ox 96 07/15/19 12:32 - Orders/Labs/Meds Orders: Active Orders 24 hr Category Date Time Status Admission Status [Patient Status] [ADT] Stat ADT 07/15/19 13:19 Ordered CULTURE BLOOD [BC] Stat Lab 07/15/19 12:58 Received CULTURE BLOOD [BC] Stat Lab 07/15/19 13:08 Received Sodium Chloride 0.9% [Saline Flush] Med 07/15/19 11:48 Active 10 ml FLUSH ASDIRECTED PRN Sodium Chloride 0.9% [Saline Flush] Med 07/15/19 11:48 Active 2.5 ml FLUSH ASDIRECTED PRN Vancomycin 1 gm Med 07/15/19 13:15 Active Sodium Chloride 0.9% [Normal Saline (AdvBag)] 250 ml IV ONETIME Blood Culture x2 Reflex Set [OM.PC] Stat Oth 07/15/19 12:45 Ordered Saline Lock Insert [OM.PC] Stat Oth 07/15/19 11:48 Ordered Medication Orders Vancomycin HCl 1 gm/ Sodium (Chloride) 250 mls @ 166 mls/hr IV ONETIME ONE Stop: 07/15/19 14:45 Sodium Chloride (Saline Flush) 10 ml FLUSH ASDIRECTED PRN PRN Reason: Keep Vein Open Last Admin: 07/15/19 12:31 Dose: 10 ml Sodium Chloride (Saline Flush) 2.5 ml FLUSH ASDIRECTED PRN PRN Reason: Keep Vein Open Last Admin: 07/15/19 12:32 Dose: 2.5 ml Labs: Laboratory Tests 07/15/19 07/15/19 07/15/19 Range/Units 12:30 12:30 12:30 WBC 8.56 (4.0-11.0) K/uL RBC 4.82 (4.50-5.90) M/uL Hgb 12.4 L (13.0-17.0) g/dL Hct 41.0 (38.0-50.0) % MCV 85.1 (80.0-98.0) fL MCH 25.7 L (27.0-32.0) pg MCHC 30.2 L (31.0-37.0) g/dL RDW Std Deviation 54.8 (28.0-62.0) fl RDW Coeff of Letty 18 H (11.0-15.0) % Plt Count 200 (150-400) K/uL MPV 9.00 (7.40-12.00) fL Neut % (Auto) 69.4 (48.0-80.0) % Lymph % (Auto) 8.5 L (16.0-40.0) % Mcintosh % (Auto) 10.3 (0.0-15.0) % Eos % (Auto) 11.1 H (0.0-7.0) % Baso % (Auto) 0.7 (0.0-1.5) % Neut # (Auto) 5.9 H (1.4-5.7) K/uL Lymph # (Auto) 0.7 (0.6-2.4) K/uL Mcintosh # (Auto) 0.9 H (0.0-0.8) K/uL Eos # (Auto) 1.0 H (0.0-0.7) K/uL Baso # (Auto) 0.1 (0.0-0.1) K/uL Nucleated RBC % 0.0 /100WBC Nucleated RBCs # 0 K/uL Lactate 3.0 H* (0.20-2.00) mmol/L Sodium 143 (136-148) mmol/L Potassium 4.2 (3.5-5.1) mmol/L Chloride 104 (98-107) mmol/L Carbon Dioxide 29.3 (21.0-32.0) mmol/L BUN 24 H (7.0-18.0) mg/dL Creatinine 1.9 H (0.8-1.3) mg/dL Est Cr Clr Drug Dosing 35.66 mL/min Estimated GFR (MDRD) 35.1 ml/min Glucose 125 H (74-106) mg/dL Calcium 9.0 (8.5-10.1) mg/dL Total Bilirubin 0.6 (0.2-1.0) mg/dL AST 24 (15-37) IU/L ALT 59 (14-63) IU/L Alkaline Phosphatase 70 (46-116) U/L Total Protein 6.4 (6.4-8.2) g/dL Albumin 3.1 L (3.4-5.0) g/dL Globulin 3.3 (2.6-4.0) g/dL Albumin/Globulin Ratio 0.9 (0.9-1.6) Meds: Medications Generic Name Dose Route Start Last Admin Trade Name Freq PRN Reason Stop Dose Admin Vancomycin HCl 1 gm/ Sodium 250 mls @ 166 mls/hr 07/15/19 13:15 Chloride IV 07/15/19 14:45 ONETIME ONE Sodium Chloride 10 ml 07/15/19 11:48 07/15/19 12:31 Saline Flush FLUSH 10 ml ASDIRECTED PRN Administration Keep Vein Open Sodium Chloride 2.5 ml 07/15/19 11:48 07/15/19 12:32 Saline Flush FLUSH 2.5 ml ASDIRECTED PRN Administration Keep Vein Open Discontinued Medications Generic Name Dose Route Start Last Admin Trade Name Freq PRN Reason Stop Dose Admin Sodium Chloride 1,000 mls @ 999 mls/hr 07/15/19 11:59 07/15/19 12:26 Normal Saline IV 07/15/19 12:59 999 mls/hr STAT ONE Administration Departure - Departure Time of Disposition: 13:22 Disposition: Admitted As Inpatient 64 Condition: Good Clinical Impression: Cellulitis Qualifiers: Site of cellulitis: extremity Site of cellulitis of extremity: lower extremity Laterality: left Qualified Code(s): L03.116 - Cellulitis of left lower limb - Discharge Information Referrals: Katarina Ochoa RESEARCH TEST ENGINE EVALUATOR [Primary Care Provider] - Forms: ED Department Discharge Sepsis Event Note - Evaluation Sepsis Screening Result: No Definite Risk - Focused Exam Vital Signs: Vital Signs Temp Pulse Resp BP Pulse Ox 07/15/19 12:32 89 16 122/72 96 07/15/19 11:46 96.9 F 102 H 18 120/72 95 Date Exam was Performed: 07/15/19 Time Exam was Performed: 13:21 - My Orders Last 24 Hours: My Active Orders 07/15/19 11:48 Sodium Chloride 0.9% [Saline Flush] 10 ml FLUSH ASDIRECTED PRN Sodium Chloride 0.9% [Saline Flush] 2.5 ml FLUSH ASDIRECTED PRN Saline Lock Insert [OM.PC] Stat 07/15/19 12:45 Blood Culture x2 Reflex Set [OM.PC] Stat 07/15/19 12:58 CULTURE BLOOD [BC] Stat 07/15/19 13:08 CULTURE BLOOD [BC] Stat 07/15/19 13:15 Vancomycin 1 gm Sodium Chloride 0.9% [Normal Saline (AdvBag)] 250 ml IV ONETIME 07/15/19 13:19 Admission Status [Patient Status] [ADT] Stat - Assessment/Plan Last 24 Hours: My Active Orders 07/15/19 11:48 Sodium Chloride 0.9% [Saline Flush] 10 ml FLUSH ASDIRECTED PRN Sodium Chloride 0.9% [Saline Flush] 2.5 ml FLUSH ASDIRECTED PRN Saline Lock Insert [OM.PC] Stat 07/15/19 12:45 Blood Culture x2 Reflex Set [OM.PC] Stat 07/15/19 12:58 CULTURE BLOOD [BC] Stat 07/15/19 13:08 CULTURE BLOOD [BC] Stat 07/15/19 13:15 Vancomycin 1 gm Sodium Chloride 0.9% [Normal Saline (AdvBag)] 250 ml IV ONETIME 07/15/19 13:19 Admission Status [Patient Status] [ADT] Stat
[2019-07-15] MEDS ORDERED: Sodium Chloride 0.9% 1,000 ML IV ONE (11:59)
[2019-07-15 13:05] LABS: CARBON DIOXIDE,CO2 29.3 mmol/L (21.0-32.0); POTASSIUM,K 4.2 mmol/L (3.5-5.1)
[2019-07-15] MEDS ORDERED: Ondansetron 4 MG/2 ML SDV IVPUSH PRN (13:41)
[2019-07-15] MEDS ORDERED: Acetaminophen 325 MG Tab PO PRN (13:41)
--- NOTE | 2019-07-15 13:44 | PCM.HP.2 ---
H&P History of Present Illness - General Date of Service: 07/15/19 Admit Problem/Dx: Admission Diagnosis/Problem Admission Diagnosis/Problem Cellulitis Source of Information: Patient History Limitations: Reports: No Limitations - History of Present Illness Initial Comments - Free Text/Narative: this 69-year-old male with pmh of diabetes and obesity presented to the ER today with concerns of red streaking up his leg. He was previously admitted on on 06-19-19 for cellulitis of his left lower extremity he was treated with Vanco and Zosyn subsequently had HKADRA and sent home on 06-30-20 with Clindamycin. He was seen yesterday in outpatient clinic with Dr. Farrell for follow-up on cholecystitis, he also has some wound care in the left lower extremity with debridement. He reports today he woke up and noticed red streaking from his lateral lower left lower leg up to his lateral left hip he denies any tenderness with joint movement no new fevers or chills at home. He denies any chest pain shortness of breath or palpitations. No abdominal pain or urinary troubles no focal neurological deficits. In the ER no leukocytosis was noted hemoglobin is 12.4 lactic acid was elevated at 3.0. BUN and creatinine are slightly elevated still from baseline BUN is 24 creatinine is 1.9. Vital signs stable mild tachycardia 102 bpm sinus rhythm was noted pressure 120/72. In the ER he was treated with normal saline bolus 1 L vancomycin was held due to recent KHADRA. Blood cultures obtained and pending. He will be admitted inpatient for continued cellulitis of the left lower extremity. - Related Data Allergies/Adverse Reactions: Allergies Allergy/AdvReac Type Severity Reaction Status Date / Time No Known Allergies Allergy Verified 07/15/19 11:48 Home Medications: Home Meds Aspirin 1 tab PO DAILY 07/15/19 [History] Ferrous Sulfate 1 tab PO DAILY 07/15/19 [History] Saw/Vit E/Sod Johana/Lyc/Beta/Pyg [Prostate Health Caplet] 1 tab PO BID 07/15/19 [ History] atorvaSTATin [Lipitor] 20 mg PO DAILY 07/15/19 [History] metFORMIN [Glucophage] 1,000 mg PO BID 07/15/19 [History] Past Medical History HEENT History: Reports: Impaired Vision Cardiovascular History: Reports: High Cholesterol, Hypertension Respiratory History: Reports: None Gastrointestinal History: Reports: None Genitourinary History: Reports: None Musculoskeletal History: Reports: None Neurological History: Reports: None Psychiatric History: Reports: None Endocrine/Metabolic History: Reports: Diabetes, Type II Hematologic History: Reports: None Immunologic History: Reports: None Oncologic (Cancer) History: Reports: Basal Cell Carcinoma Other Oncologic History: Removal on left side of face a couple weeks ago. Dermatologic History: Reports: Cellulitis - Infectious Disease History Infectious Disease History: Reports: Mumps - Past Surgical History Head Surgeries/Procedures: Reports: None HEENT Surgical History: Reports: Eye Surgery Other HEENT Surgeries/Procedures: Right removal of eye, has glass eye. Cardiovascular Surgical History: Reports: None Respiratory Surgical History: Reports: None GI Surgical History: Reports: None Male Surgical History: Reports: None Endocrine Surgical History: Reports: None Neurological Surgical History: Reports: None Musculoskeletal Surgical History: Reports: None Oncologic Surgical History: Reports: None Dermatological Surgical History: Reports: None Social & Family History - Family History Family Medical History: Noncontributory - Tobacco Use Smoking Status *Q: Never Smoker - Caffeine Use Caffeine Use: Reports: Coffee - Recreational Drug Use Recreational Drug Use: No H&P Review of Systems - Review of Systems: Review Of Systems: See Below General: Reports: No Symptoms. Denies: Fever, Chills, Malaise, Weakness Pulmonary: Reports: No Symptoms. Denies: Shortness of Breath Cardiovascular: Reports: No Symptoms. Denies: Chest Pain Gastrointestinal: Reports: No Symptoms. Denies: Abdominal Pain, Black Stool, Bloody Stool, Nausea, Vomiting Genitourinary: Reports: No Symptoms. Denies: Dysuria, Frequency Skin: Reports: Erythema, Wound Psychiatric: Reports: No Symptoms Neurological: Reports: No Symptoms. Denies: Confusion Hematologic/Lymphatic: Reports: No Symptoms Immunologic: Reports: No Symptoms Exam - Exam Exam: See Below - Vital Signs Vital Signs: Last Vital Signs Temp 96.9 F 07/15/19 11:46 Pulse 89 07/15/19 12:32 Resp 16 07/15/19 12:32 BP 122/72 07/15/19 12:32 Pulse Ox 96 07/15/19 12:32 Weight: 140.614 kg - Exam Quality Assessment: No: Supplemental Oxygen General: Alert, Oriented, Cooperative HEENT: Conjunctiva Clear, Posterior Pharynx Clear Neck: Supple, Trachea Midline Lungs: Clear to Auscultation, Normal Respiratory Effort Cardiovascular: Regular Rate, Regular Rhythm GI/Abdominal Exam: Normal Bowel Sounds, Soft, Non-Tender, Other (obese abdomen) Extremities: Normal Range of Motion, Non-Tender, Pedal Edema (+1 pitting edema) Skin: Warm, Dry, Intact, Wound (dry wounds noted to left lower extremity and erythema noted to posterior lateral left lower extremity extending proximally to l hip. ) Neurological: Cranial Nerves Intact Neuro Extensive - Mental Status: Alert, Oriented x3 Neuro Extensive - Motor, Sensory, Reflexes: CN II-XII Intact, Normal Gait Psychiatric: Alert, Normal Affect, Normal Mood - Patient Data Lab Results Last 24 hrs: Laboratory Results - last 24 hr 07/15/19 07/15/19 07/15/19 Range/Units 12:30 12:30 12:30 WBC 8.56 (4.0-11.0) K/uL RBC 4.82 (4.50-5.90) M/uL Hgb 12.4 L (13.0-17.0) g/dL Hct 41.0 (38.0-50.0) % MCV 85.1 (80.0-98.0) fL MCH 25.7 L (27.0-32.0) pg MCHC 30.2 L (31.0-37.0) g/dL RDW Std Deviation 54.8 (28.0-62.0) fl RDW Coeff of Letty 18 H (11.0-15.0) % Plt Count 200 (150-400) K/uL MPV 9.00 (7.40-12.00) fL Neut % (Auto) 69.4 (48.0-80.0) % Lymph % (Auto) 8.5 L (16.0-40.0) % [place] % (Auto) 10.3 (0.0-15.0) % Eos % (Auto) 11.1 H (0.0-7.0) % Baso % (Auto) 0.7 (0.0-1.5) % Neut # (Auto) 5.9 H (1.4-5.7) K/uL Lymph # (Auto) 0.7 (0.6-2.4) K/uL [place] # (Auto) 0.9 H (0.0-0.8) K/uL Eos # (Auto) 1.0 H (0.0-0.7) K/uL Baso # (Auto) 0.1 (0.0-0.1) K/uL Nucleated RBC % 0.0 /100WBC Nucleated RBCs # 0 K/uL Lactate 3.0 H* (0.20-2.00) mmol/L Sodium 143 (136-148) mmol/L Potassium 4.2 (3.5-5.1) mmol/L Chloride 104 (98-107) mmol/L Carbon Dioxide 29.3 (21.0-32.0) mmol/L BUN 24 H (7.0-18.0) mg/dL Creatinine 1.9 H (0.8-1.3) mg/dL Est Cr Clr Drug Dosing 35.66 mL/min Estimated GFR (MDRD) 35.1 ml/min Glucose 125 H (74-106) mg/dL Calcium 9.0 (8.5-10.1) mg/dL Total Bilirubin 0.6 (0.2-1.0) mg/dL AST 24 (15-37) IU/L ALT 59 (14-63) IU/L Alkaline Phosphatase 70 (46-116) U/L Total Protein 6.4 (6.4-8.2) g/dL Albumin 3.1 L (3.4-5.0) g/dL Globulin 3.3 (2.6-4.0) g/dL Albumin/Globulin Ratio 0.9 (0.9-1.6) Result Diagrams: 07/15/19 12:30 07/15/19 12:30 Can Results Last 24 hrs: Microbiology 07/15/19 12:58 Anaerobic Blood Culture - Final Blood - Venous Sepsis Event Note - Evaluation Sepsis Screening Result: No Definite Risk - Focused Exam Vital Signs: Vital Signs Temp Pulse Resp BP Pulse Ox 07/15/19 12:32 89 16 122/72 96 07/15/19 11:46 96.9 F 102 H 18 120/72 95 Date Exam was Performed: 07/15/19 Time Exam was Performed: 15:22 - Problem List (1) Cellulitis SNOMED Code(s): 997976345 ICD Code: L03.90 - CELLULITIS, UNSPECIFIED Status: Acute Current Visit: Yes Qualifiers: Site of cellulitis: extremity Site of cellulitis of extremity: lower extremity Laterality: left Qualified Code(s): L03.116 - Cellulitis of left lower limb (2) DM type 2 (diabetes mellitus, type 2) SNOMED Code(s): 67369360 ICD Code: E11.9 - TYPE 2 DIABETES MELLITUS WITHOUT COMPLICATIONS Status: Chronic Current Visit: No Qualifiers: Diabetes mellitus fpc insulin use: without fpc use Diabetes mellitus complication status: with skin complications Diabetes mellitus complication detail: with other skin complication Qualified Code(s): E11.628 - Type 2 diabetes mellitus with other skin complications (3) HLD (hyperlipidemia) SNOMED Code(s): 87317612 ICD Code: E78.5 - HYPERLIPIDEMIA, UNSPECIFIED Status: Chronic Current Visit: No (4) HTN (hypertension) SNOMED Code(s): 91989436 ICD Code: I10 - ESSENTIAL (PRIMARY) HYPERTENSION Status: Chronic Current Visit: No (5) Obesity SNOMED Code(s): 248101418, 428233001 ICD Code: E66.9 - OBESITY, UNSPECIFIED Status: Chronic Current Visit: No Problem List Initiated/Reviewed/Updated: Yes Orders Last 24hrs: Active Orders 24 hr Category Date Time Status Admission Status [Patient Status] [ADT] Stat ADT 07/15/19 13:19 Active Height and Weight [RC] DAILY Care 07/15/19 13:41 Ordered Intake and Output Strict [RC] ASDIRECTED Care 07/15/19 13:41 Ordered May Shower [RC] ASDIRECTED Care 07/15/19 13:41 Ordered Oxygen Therapy [RC] PRN Care 07/15/19 13:41 Ordered Telemetry Monitoring [Cardiac Monitoring] [RC] . Care 07/15/19 13:44 Ordered DIRECTED Up With Assistance [RC] ASDIRECTED Care 07/15/19 13:41 Ordered VTE/DVT Education [RC] PER UNIT ROUTINE Care 07/15/19 13:41 Ordered Vital Signs [RC] Q4H Care 07/15/19 13:41 Ordered Consult to Wound Care Services [CONS] Routine Cons 07/15/19 13:43 Ordered [employer] Diet [DIET] Diet 07/15/19 Lunch Ordered BASIC METABOLIC PANEL,BMP [CHEM] AM Lab 07/16/19 05:11 Ordered CBC WITH AUTO DIFF [HEME] AM Lab 07/16/19 05:11 Ordered CULTURE BLOOD [BC] Stat Lab 07/15/19 12:58 Results CULTURE BLOOD [BC] Stat Lab 07/15/19 13:08 Received Acetaminophen [Tylenol] Med 07/15/19 13:41 Ordered 650 mg PO Q4H PRN Cefepime [Maxipime in D5W 2 GM/50 ML] 2 gm Med 07/15/19 13:45 Ordered Premix Bag 1 bag IV Q12H Heparin Sodium Med 07/15/19 13:45 Ordered 5,000 units SUBCUT Q8H Ondansetron [Zofran] Med 07/15/19 13:41 Ordered 4 mg IVPUSH Q4H PRN Pharmacy to Dose - Vancomycin Med 07/15/19 13:45 Ordered 1 dose .XX ASDIRECTED Sodium Chloride 0.9% [Normal Saline] 1,000 ml Med 07/15/19 13:45 Ordered IV Q10H Sodium Chloride 0.9% [Saline Flush] Med 07/15/19 11:48 Active 10 ml FLUSH ASDIRECTED PRN Sodium Chloride 0.9% [Saline Flush] Med 07/15/19 11:48 Active 2.5 ml FLUSH ASDIRECTED PRN Vancomycin 1 gm Med 07/15/19 13:15 Active Sodium Chloride 0.9% [Normal Saline (AdvBag)] 250 ml IV ONETIME Blood Culture x2 Reflex Set [OM.PC] Stat Oth 07/15/19 12:45 Ordered Saline Lock Insert [OM.PC] Stat Oth 07/15/19 11:48 Ordered Resuscitation Status Routine Resus Stat 07/15/19 13:41 Ordered Medication Orders Acetaminophen (Tylenol) 650 mg PO Q4H PRN PRN Reason: Pain (Mild 1-3)/fever Heparin Sodium (Porcine) (Heparin Sodium) 5,000 units SUBCUT Q8H [facility] Vancomycin HCl 1 gm/ Sodium (Chloride) 250 mls @ 166 mls/hr IV ONETIME ONE Stop: 07/15/19 14:45 Cefepime HCl 2 gm/ Premix 50 mls @ 100 mls/hr IV Q12H [facility] Sodium Chloride (Normal Saline) 1,000 mls @ 100 mls/hr IV Q10H [facility] Ondansetron HCl (Zofran) 4 mg IVPUSH Q4H PRN PRN Reason: Nausea Sodium Chloride (Saline Flush) 10 ml FLUSH ASDIRECTED PRN PRN Reason: Keep Vein Open Last Admin: 07/15/19 12:31 Dose: 10 ml Sodium Chloride (Saline Flush) 2.5 ml FLUSH ASDIRECTED PRN PRN Reason: Keep Vein Open Last Admin: 07/15/19 12:32 Dose: 2.5 ml Vancomycin HCl (Pharmacy To Dose - Vancomycin) 1 dose .XX ASDIRECTED [facility] Assessment/Plan Comment:: 69 yo male admitted for left lower extremity cellulitis. 1. L lower extremity cellulitis - Was debrided by Dr Farrell in the clinic yesterday. - Linezolid and Cefepime. - Wound care consult for management - elevate extremity as possible. - lactic acid elevated, does not appear toxic or septic. 1 L NS given in ED. Will recheck lactic acid. - Obtain Doppler to LLE to rule out DVT 2. HTN: - Stable, monitor - Lisinopril was on hold due to KHADRA from last admission. 3 . DM type 2: - Monitor BS TIDAC, with Novolog SSI Diet: ADA Code Status: Full code VTE prophylaxis: Heparin Dispo: 2-3 days - Mortality Measure Prognosis:: Good
[2019-07-15] MEDS ORDERED: Vancomycin 2 GM in Sodium Chloride 0.9% 500 ML IV SCH (14:00)
[2019-07-15] MEDS: Heparin Sodium 5,000 Units/ML Vial SUBCUT SCH ×2 (14:39→22:05)
[2019-07-15] MEDS: Cefepime 2 GM in Premix Bag 1 BAG IV SCH (14:41)
[2019-07-15] MEDS: Linezolid 600 MG in Premix Bag 1 BAG IV SCH (15:32)
[2019-07-15] MEDS: Sodium Chloride 0.9% 1,000 ML IV SCH (15:51)
--- NOTE | 2019-07-15 23:46 | US ---
INDICATION: Erythema, swelling, pain TECHNIQUE: Ultrasound venous duplex lower left extremity. Compression venous exam was performed using ortiz-scale, color Doppler, and spectral Doppler analysis. COMPARISON: 06/22/2019 FINDINGS: Sonographic imaging demonstrates the left common femoral, deep femoral, superficial femoral, popliteal, posterior tibial and greater saphenous veins to be fully compressible with normal color Doppler blood flow. 2.4 centimeter left inguinal lymph node. IMPRESSION: Normal left lower extremity venous ultrasound, no sign of deep venous thrombosis. 2.4 centimeter left inguinal lymph node Dictated by Laith Marie MD @ 07/15/2019 11:45:52 PM Dictated by: Laith Marie MD @ 07/15/2019 23:45:59 (Electronically Signed)
[2019-07-16] MEDS: Cefepime 2 GM in Premix Bag 1 BAG IV SCH ×2 (01:31→14:34)
[2019-07-16] MEDS: Sodium Chloride 0.9% 1,000 ML IV SCH (03:34)
[2019-07-16] MEDS: Linezolid 600 MG in Premix Bag 1 BAG IV SCH ×2 (03:34→15:27)
[2019-07-16 05:49] LABS: CARBON DIOXIDE,CO2 28.4 mmol/L (21.0-32.0); POTASSIUM,K 3.8 mmol/L (3.5-5.1)
[2019-07-16] MEDS: Heparin Sodium 5,000 Units/ML Vial SUBCUT SCH ×3 (06:15→21:26)
--- NOTE | 2019-07-16 07:48 | PCM.PN ---
- General Info Date of Service: 07/16/19 Admission Dx/Problem (Free Text): Admission Diagnosis/Problem Admission Diagnosis/Problem Cellulitis Subjective Update: Feeling good today. No concerns. Reports leg is feeling better, noted some improvement in redness. Continues to have some drainage from open areas. NO chest pain, shortness of breath. No fevers or chills. Functional Status: Reports: Pain Controlled, Tolerating Diet, Ambulating, Urinating - Review of Systems Pulmonary: Reports: No Symptoms. Denies: Shortness of Breath Cardiovascular: Reports: No Symptoms. Denies: Chest Pain Gastrointestinal: Reports: No Symptoms. Denies: Abdominal Pain, Nausea, Vomiting Genitourinary: Reports: No Symptoms. Denies: Dysuria, Frequency Musculoskeletal: Reports: Leg Pain (improved, L leg) Skin: Reports: No Symptoms Neurological: Reports: No Symptoms Psychiatric: Reports: No Symptoms - Patient Data Vitals - Most Recent: Last Vital Signs Temp 97.9 F 07/16/19 07:46 Pulse 81 07/16/19 07:46 Resp 17 07/16/19 07:46 BP 126/62 07/16/19 07:46 Pulse Ox 95 07/16/19 07:46 Weight - Most Recent: 139.9 kg I&O - Last 24 Hours: Intake & Output 07/15/19 07/16/19 07/16/19 22:59 06:59 14:59 Intake Total 1699 1691 Output Total 600 900 Balance 1099 791 Lab Results Last 24 Hours: Laboratory Results - last 24 hr 07/15/19 07/15/19 07/15/19 Range/Units 12:30 12:30 12:30 WBC 8.56 (4.0-11.0) K/uL RBC 4.82 (4.50-5.90) M/uL Hgb 12.4 L (13.0-17.0) g/dL Hct 41.0 (38.0-50.0) % MCV 85.1 (80.0-98.0) fL MCH 25.7 L (27.0-32.0) pg MCHC 30.2 L (31.0-37.0) g/dL RDW Std Deviation 54.8 (28.0-62.0) fl RDW Coeff of Letty 18 H (11.0-15.0) % Plt Count 200 (150-400) K/uL MPV 9.00 (7.40-12.00) fL Neut % (Auto) 69.4 (48.0-80.0) % Lymph % (Auto) 8.5 L (16.0-40.0) % [place] % (Auto) 10.3 (0.0-15.0) % Eos % (Auto) 11.1 H (0.0-7.0) % Baso % (Auto) 0.7 (0.0-1.5) % Neut # (Auto) 5.9 H (1.4-5.7) K/uL Lymph # (Auto) 0.7 (0.6-2.4) K/uL [place] # (Auto) 0.9 H (0.0-0.8) K/uL Eos # (Auto) 1.0 H (0.0-0.7) K/uL Baso # (Auto) 0.1 (0.0-0.1) K/uL Nucleated RBC % 0.0 /100WBC Nucleated RBCs # 0 K/uL Lactate 3.0 H* (0.20-2.00) mmol/L Sodium 143 (136-148) mmol/L Potassium 4.2 (3.5-5.1) mmol/L Chloride 104 (98-107) mmol/L Carbon Dioxide 29.3 (21.0-32.0) mmol/L BUN 24 H (7.0-18.0) mg/dL Creatinine 1.9 H (0.8-1.3) mg/dL Est Cr Clr Drug Dosing 35.66 mL/min Estimated GFR (MDRD) 35.1 ml/min Glucose 125 H (74-106) mg/dL POC Glucose (60-110) mg/dL Calcium 9.0 (8.5-10.1) mg/dL Total Bilirubin 0.6 (0.2-1.0) mg/dL AST 24 (15-37) IU/L ALT 59 (14-63) IU/L Alkaline Phosphatase 70 (46-116) U/L Total Protein 6.4 (6.4-8.2) g/dL Albumin 3.1 L (3.4-5.0) g/dL Globulin 3.3 (2.6-4.0) g/dL Albumin/Globulin Ratio 0.9 (0.9-1.6) 07/15/19 07/16/19 07/16/19 Range/Units 16:00 04:55 04:55 WBC 7.87 (4.0-11.0) K/uL RBC 4.19 L (4.50-5.90) M/uL Hgb 10.8 L (13.0-17.0) g/dL Hct 35.7 L (38.0-50.0) % MCV 85.2 (80.0-98.0) fL MCH 25.8 L (27.0-32.0) pg MCHC 30.3 L (31.0-37.0) g/dL RDW Std Deviation 54.2 (28.0-62.0) fl RDW Coeff of Letty 18 H (11.0-15.0) % Plt Count 183 (150-400) K/uL MPV 9.20 (7.40-12.00) fL Neut % (Auto) 70.6 (48.0-80.0) % Lymph % (Auto) 8.3 L (16.0-40.0) % [place] % (Auto) 10.4 (0.0-15.0) % Eos % (Auto) 10.2 H (0.0-7.0) % Baso % (Auto) 0.5 (0.0-1.5) % Neut # (Auto) 5.6 (1.4-5.7) K/uL Lymph # (Auto) 0.7 (0.6-2.4) K/uL [place] # (Auto) 0.8 (0.0-0.8) K/uL Eos # (Auto) 0.8 H (0.0-0.7) K/uL Baso # (Auto) 0.0 (0.0-0.1) K/uL Nucleated RBC % 0.0 /100WBC Nucleated RBCs # 0 K/uL Lactate 1.4 (0.20-2.00) mmol/L Sodium 140 (136-148) mmol/L Potassium 3.8 (3.5-5.1) mmol/L Chloride 104 (98-107) mmol/L Carbon Dioxide 28.4 (21.0-32.0) mmol/L BUN 21 H (7.0-18.0) mg/dL Creatinine 1.6 H (0.8-1.3) mg/dL Est Cr Clr Drug Dosing 42.35 mL/min Estimated GFR (MDRD) 42.8 ml/min Glucose 153 H (74-106) mg/dL POC Glucose (60-110) mg/dL Calcium 7.8 L (8.5-10.1) mg/dL Total Bilirubin (0.2-1.0) mg/dL AST (15-37) IU/L ALT (14-63) IU/L Alkaline Phosphatase (46-116) U/L Total Protein (6.4-8.2) g/dL Albumin (3.4-5.0) g/dL Globulin (2.6-4.0) g/dL Albumin/Globulin Ratio (0.9-1.6) 07/16/19 Range/Units 06:33 WBC (4.0-11.0) K/uL RBC (4.50-5.90) M/uL Hgb (13.0-17.0) g/dL Hct (38.0-50.0) % MCV (80.0-98.0) fL MCH (27.0-32.0) pg MCHC (31.0-37.0) g/dL RDW Std Deviation (28.0-62.0) fl RDW Coeff of Letty (11.0-15.0) % Plt Count (150-400) K/uL MPV (7.40-12.00) fL Neut % (Auto) (48.0-80.0) % Lymph % (Auto) (16.0-40.0) % [place] % (Auto) (0.0-15.0) % Eos % (Auto) (0.0-7.0) % Baso % (Auto) (0.0-1.5) % Neut # (Auto) (1.4-5.7) K/uL Lymph # (Auto) (0.6-2.4) K/uL [place] # (Auto) (0.0-0.8) K/uL Eos # (Auto) (0.0-0.7) K/uL Baso # (Auto) (0.0-0.1) K/uL Nucleated RBC % /100WBC Nucleated RBCs # K/uL Lactate (0.20-2.00) mmol/L Sodium (136-148) mmol/L Potassium (3.5-5.1) mmol/L Chloride (98-107) mmol/L Carbon Dioxide (21.0-32.0) mmol/L BUN (7.0-18.0) mg/dL Creatinine (0.8-1.3) mg/dL Est Cr Clr Drug Dosing mL/min Estimated GFR (MDRD) ml/min Glucose (74-106) mg/dL POC Glucose 104 (60-110) mg/dL Calcium (8.5-10.1) mg/dL Total Bilirubin (0.2-1.0) mg/dL AST (15-37) IU/L ALT (14-63) IU/L Alkaline Phosphatase (46-116) U/L Total Protein (6.4-8.2) g/dL Albumin (3.4-5.0) g/dL Globulin (2.6-4.0) g/dL Albumin/Globulin Ratio (0.9-1.6) Can Results Last 24 Hours: Microbiology 07/15/19 12:58 Anaerobic Blood Culture - Final Blood - Venous Med Orders - Current: Current Medications Acetaminophen (Tylenol) 650 mg PO Q4H PRN PRN Reason: Pain (Mild 1-3)/fever Heparin Sodium (Porcine) (Heparin Sodium) 5,000 units SUBCUT Q8H [facility] Last Admin: 07/16/19 06:15 Dose: 5,000 units Cefepime HCl 2 gm/ Premix 50 mls @ 100 mls/hr IV Q12H [facility] Last Admin: 07/16/19 01:31 Dose: 100 mls/hr Sodium Chloride (Normal Saline) 1,000 mls @ 100 mls/hr IV Q10H [facility] Last Admin: 07/16/19 03:34 Dose: 100 mls/hr Linezolid 600 mg/ Premix 300 mls @ 300 mls/hr IV Q12H [facility] Last Admin: 07/16/19 03:34 Dose: 300 mls/hr Ondansetron HCl (Zofran) 4 mg IVPUSH Q4H PRN PRN Reason: Nausea Sodium Chloride (Saline Flush) 10 ml FLUSH ASDIRECTED PRN PRN Reason: Keep Vein Open Last Admin: 07/15/19 12:31 Dose: 10 ml Sodium Chloride (Saline Flush) 2.5 ml FLUSH ASDIRECTED PRN PRN Reason: Keep Vein Open Last Admin: 07/15/19 12:32 Dose: 2.5 ml Discontinued Medications Sodium Chloride (Normal Saline) 1,000 mls @ 999 mls/hr IV STAT ONE Stop: 07/15/19 12:59 Last Admin: 07/15/19 12:26 Dose: 999 mls/hr Vancomycin HCl (Pharmacy To Dose - Vancomycin) 1 dose .XX ASDIRECTED [facility] - Exam General: Alert, Oriented, Cooperative, No Acute Distress Lungs: Clear to Auscultation, Normal Respiratory Effort Cardiovascular: Regular Rate, Regular Rhythm GI/Abdominal Exam: Normal Bowel Sounds, Soft, Non-Tender Extremities: Normal Inspection, Normal Range of Motion, Non-Tender, Pedal Edema (+1 pitting edema bilateral lower legs) Skin: Dry Wound/Incisions: Drainage (from open areas to lower left leg. Dry flaky skin noted. ), Erythema Improving (no further streaking up L lateral leg. ) Psy/Mental Status: Alert, Normal Affect, Normal Mood Sepsis Event Note - Evaluation Sepsis Screening Result: No Definite Risk - Focused Exam Vital Signs: Vital Signs Temp Pulse Resp BP Pulse Ox 07/16/19 07:46 97.9 F 81 17 126/62 95 07/16/19 03:33 97.9 F 84 16 127/59 L 93 L 07/15/19 23:37 98.2 F 83 18 116/58 L 96 07/15/19 19:53 98.2 F 83 18 120/56 L 96 Date Exam was Performed: 07/16/19 Time Exam was Performed: 09:10 - Problem List & Annotations (1) Cellulitis SNOMED Code(s): 066964279 Code(s): L03.90 - CELLULITIS, UNSPECIFIED Status: Acute Current Visit: Yes Qualifiers: Site of cellulitis: extremity Site of cellulitis of extremity: lower extremity Laterality: left Qualified Code(s): L03.116 - Cellulitis of left lower limb (2) DM type 2 (diabetes mellitus, type 2) SNOMED Code(s): 41412641 Code(s): E11.9 - TYPE 2 DIABETES MELLITUS WITHOUT COMPLICATIONS Status: Chronic Current Visit: No Qualifiers: Diabetes mellitus alf insulin use: without terminal gauger supervisor use Diabetes mellitus complication status: with skin complications Diabetes mellitus complication detail: with other skin complication Qualified Code(s): E11.628 - Type 2 diabetes mellitus with other skin complications (3) HLD (hyperlipidemia) SNOMED Code(s): 27278294 Code(s): E78.5 - HYPERLIPIDEMIA, UNSPECIFIED Status: Chronic Current Visit: No (4) HTN (hypertension) SNOMED Code(s): 27586260 Code(s): I10 - ESSENTIAL (PRIMARY) HYPERTENSION Status: Chronic Current Visit: No (5) Obesity SNOMED Code(s): 153466035, 362984308 Code(s): E66.9 - OBESITY, UNSPECIFIED Status: Chronic Current Visit: No - Problem List Review Problem List Initiated/Reviewed/Updated: Yes - My Orders Last 24 Hours: My Active Orders 07/15/19 13:41 Height and Weight [RC] DAILY Intake and Output Strict [RC] Q12H May Shower [RC] ASDIRECTED Oxygen Therapy [RC] PRN Up With Assistance [RC] ASDIRECTED VTE/DVT Education [RC] PER UNIT ROUTINE Vital Signs [RC] Q4H Acetaminophen [Tylenol] 650 mg PO Q4H PRN Ondansetron [Zofran] 4 mg IVPUSH Q4H PRN Resuscitation Status Routine 07/15/19 13:43 Consult to Wound Care Services [CONS] Routine 07/15/19 13:44 Telemetry Monitoring [Cardiac Monitoring] [RC] Q8H 07/15/19 13:45 Cefepime [Maxipime in D5W 2 GM/50 ML] 2 gm Premix Bag 1 bag IV Q12H Heparin Sodium 5,000 units SUBCUT Q8H Sodium Chloride 0.9% [Normal Saline] 1,000 ml IV Q10H 07/15/19 15:00 Linezolid [Zyvox] 600 mg Premix Bag 1 bag IV Q12H 07/15/19 Lunch [employer] Diet [DIET] 07/16/19 07:47 Famotidine [Pepcid] 20 mg PO BID@0700,1700 07/16/19 09:00 Ferrous Sulfate 325 mg PO QAM atorvaSTATin [Lipitor] 20 mg PO DAILY 07/16/19 18:00 Aspirin 81 mg PO QPM - Plan Plan:: 69 yo male admitted for left lower extremity cellulitis. 1. L lower extremity cellulitis - Improvement. - Linezolid and Cefepime. - Wound care consult for wound management - elevate extremity as possible. - lactic acid returned to normal - Doppler to LLE negative for DVT 2. HTN: - Stable, monitor - Lisinopril was on hold due to KHADRA from last admission. 3 . DM type 2: - Monitor BS TIDAC, with Novolog SSI Diet: ADA Code Status: Full code VTE prophylaxis: Heparin Dispo: 2-3 days
[2019-07-16] MEDS: Omeprazole 20 MG Cap.CR PO SCH ×2 (08:37→17:19)
[2019-07-16] MEDS: Ferrous Sulfate 325 MG Tab PO SCH (08:37)
[2019-07-16] MEDS: atorvaSTATin 20 MG Tab PO SCH (08:38)
[2019-07-16] MEDS: Insulin Aspart 100 Units/ML 3 ML Pen SUBCUT SCH ×2 (12:50→17:18)
[2019-07-16] MEDS ORDERED: Aspirin 81 MG Tab.Chew PO SCH (18:00)
[2019-07-17] MEDS: Cefepime 2 GM in Premix Bag 1 BAG IV SCH (01:27)
[2019-07-17] MEDS: Linezolid 600 MG in Premix Bag 1 BAG IV SCH (03:46)
[2019-07-17] MEDS: Heparin Sodium 5,000 Units/ML Vial SUBCUT SCH (04:59)
[2019-07-17 05:59] LABS: CARBON DIOXIDE,CO2 27.1 mmol/L (21.0-32.0)
[2019-07-17] MEDS: Omeprazole 20 MG Cap.CR PO SCH (06:24)
[2019-07-17] MEDS: Insulin Aspart 100 Units/ML 3 ML Pen SUBCUT SCH ×2 (07:57→12:12)
[2019-07-17] MEDS: atorvaSTATin 20 MG Tab PO SCH (09:06)
[2019-07-17] MEDS: Ferrous Sulfate 325 MG Tab PO SCH (09:06)
--- NOTE | 2019-07-17 10:35 | PCM.DCSUM1 ---
Discharge Summary - Hospital Course Brief History: this 69-year-old male with pmh of diabetes and obesity presented to the ER today with concerns of red streaking up his leg. He was previously admitted on on 06-19-19 for cellulitis of his left lower extremity he was treated with Vanco and Zosyn subsequently had KHADRA and sent home on 06-30-20 with Clindamycin. He was seen yesterday in outpatient clinic with Dr. Farrell for follow-up on cholecystitis, he also has some wound care in the left lower extremity with debridement. He reports today he woke up and noticed red streaking from his lateral lower left lower leg up to his lateral left hip he denies any tenderness with joint movement no new fevers or chills at home. He denies any chest pain shortness of breath or palpitations. No abdominal pain or urinary troubles no focal neurological deficits. In the ER no leukocytosis was noted hemoglobin is 12.4 lactic acid was elevated at 3.0. BUN and creatinine are slightly elevated still from baseline BUN is 24 creatinine is 1.9. Vital signs stable mild tachycardia 102 bpm sinus rhythm was noted pressure 120/72. In the ER he was treated with normal saline bolus 1 L vancomycin was held due to recent KHADRA. Blood cultures obtained and pending. He will be admitted inpatient for continued cellulitis of the left lower extremity. Diagnosis: Stroke: No - Discharge Data Discharge Date: 07/17/19 Discharge Disposition: Home, W Home Health Agency 06 Condition: Stable - Referral to Home Health Date of Face to Face Encounter: 07/17/19 Reason for Homebound Status: Patient is unable to drive himself to appointments or leave the house without caregiver or cane for assistance. Primary Care Physician: Katarina Ochoa NP Skilled Need: Jose is in need of nursing home care to provider monitoring for wounds to LLE as well as assist in dressing changes. he would also benefit from PT/OT evaluation for ambulationg and strengthening as well as home safety evaluation. - Discharge Diagnosis/Problem(s) (1) Cellulitis SNOMED Code(s): 299751088 ICD Code: L03.90 - CELLULITIS, UNSPECIFIED Status: Acute Current Visit: Yes Qualifiers: Site of cellulitis: extremity Site of cellulitis of extremity: lower extremity Laterality: left Qualified Code(s): L03.116 - Cellulitis of left lower limb (2) DM type 2 (diabetes mellitus, type 2) SNOMED Code(s): 81344767 ICD Code: E11.9 - TYPE 2 DIABETES MELLITUS WITHOUT COMPLICATIONS Status: Chronic Current Visit: No Qualifiers: Diabetes mellitus meterman insulin use: without meterman use Diabetes mellitus complication status: with skin complications Diabetes mellitus complication detail: with other skin complication Qualified Code(s): E11.628 - Type 2 diabetes mellitus with other skin complications (3) HLD (hyperlipidemia) SNOMED Code(s): 25025901 ICD Code: E78.5 - HYPERLIPIDEMIA, UNSPECIFIED Status: Chronic Current Visit: No (4) HTN (hypertension) SNOMED Code(s): 80350625 ICD Code: I10 - ESSENTIAL (PRIMARY) HYPERTENSION Status: Chronic Current Visit: No (5) Obesity SNOMED Code(s): 911644430, 355537251 ICD Code: E66.9 - OBESITY, UNSPECIFIED Status: Chronic Current Visit: No - Patient Summary/Data Consults: Consultations 07/15/19 13:43 Consult to Wound Care Services [CONS] Routine Hospital Course: Admitting Diagnoses: Cellulitis Discharge Diagnoses: Cellulitis of LLE Other PMH: DM type 2 HTN Obesity Jose was admitted after debridement to [facility] the day prior to admission, having some streaking up his leg and elevated lactic acid. He was not noted to be septic. He was give IVF as well as Linezolid and Cefepime for cellulitis of LLE. He improved. Wound care consulted, recommended continued Xeroform and kerlex from Dr Farrell's office, to be replaced every other day. He will be discharged home today with keflex for 7 more days, to cover any potential gram negative organisms. He will also recieve Orbactiv 1200 mg IV once as an outpatient. He will follow up with PCP in 1 week, continue to hold KO for now, PCP may return this when renal function has returned to normal. Continue other home medications. Resume Home health. Return to ED or clinic if concerns should arise. - Patient Instructions Diet: Diabetic Diet Activity: Elevate Extremity, No Strenuous Activities Wound/Incision Care: Change Dressing Daily Notify Provider of: Fever, Increased Pain, Swelling and Redness, Drainage, Nausea and/or Vomiting - Discharge Plan *PRESCRIPTION DRUG MONITORING PROGRAM REVIEWED*: Not Applicable *COPY OF PRESCRIPTION DRUG MONITORING REPORT IN PATIENT CECILIO: Not Applicable Prescriptions/Med Rec: Bismuth Tribromoph/Petrolatum [Xeroform Petrolatum Dress] 1 each TP Q48H #1 box cephALEXin [Keflex] 500 mg PO Q6H #28 cap Gauze Bandage [Kerlix] 1 each TP Q48H #1 box Oritavancin Diphosphate [Orbactiv] 1,200 mg IV ONETIME #3 vial Home Medications: Home Meds Aspirin 81 mg PO QPM 07/15/19 [History] Famotidine [Acid Controller] 20 mg PO BID 07/15/19 [History] Ferrous Sulfate 325 mg PO QAM 07/15/19 [History] Saw/Vit E/Sod Johana/Lyc/Beta/Pyg [Prostate Health Caplet] 1 tab PO BID 07/15/19 [ History] atorvaSTATin [Lipitor] 20 mg PO DAILY 07/15/19 [History] diphenhydrAMINE HCL [Benadryl Allergy] 25 mg PO Q4HR 07/15/19 [History] metFORMIN [Glucophage] 1,000 mg PO BID 07/15/19 [History] Bismuth Tribromoph/Petrolatum [Xeroform Petrolatum Dress] 1 each TP Q48H #1 box 07/17/19 [Rx] Gauze Bandage [Kerlix] 1 each TP Q48H #1 box 07/17/19 [Rx] Oritavancin Diphosphate [Orbactiv] 1,200 mg IV ONETIME #3 vial 07/17/19 [Rx] cephALEXin [Keflex] 500 mg PO Q6H #28 cap 07/17/19 [Rx] Oxygen Therapy Mode: Room Air Patient Handouts: Oritavancin injection, Cellulitis, Adult, [id number], Cephalexin tablets or capsules Referrals: [facility] [Outside] Katarina Ochoa NP [Primary Care Provider] - 07/29/19 3:00 pm - Discharge Summary/Plan Comment DC Time >30 min.: No - Patient Data Vitals - Most Recent: Last Vital Signs Temp 98.0 F 07/17/19 07:00 Pulse 77 07/17/19 07:00 Resp 15 07/17/19 07:00 BP 138/63 07/17/19 07:00 Pulse Ox 96 07/17/19 07:00 Weight - Most Recent: 139.3 kg I&O - Last 24 hours: Intake & Output 07/16/19 07/17/19 07/17/19 22:59 06:59 14:59 Intake Total 920 900 Output Total 1300 1850 Balance -380 -950 Lab Results - Last 24 hrs: Laboratory Results - last 24 hr 07/16/19 07/16/19 07/17/19 Range/Units 11:43 16:57 05:13 WBC 6.91 (4.0-11.0) K/uL RBC 4.30 L (4.50-5.90) M/uL Hgb 11.1 L (13.0-17.0) g/dL Hct 36.3 L (38.0-50.0) % MCV 84.4 (80.0-98.0) fL MCH 25.8 L (27.0-32.0) pg MCHC 30.6 L (31.0-37.0) g/dL RDW Std Deviation 53.0 (28.0-62.0) fl RDW Coeff of Letty 17 H (11.0-15.0) % Plt Count 182 (150-400) K/uL MPV 9.20 (7.40-12.00) fL Neut % (Auto) 71.2 (48.0-80.0) % Lymph % (Auto) 11.0 L (16.0-40.0) % Berks % (Auto) 8.7 (0.0-15.0) % Eos % (Auto) 8.2 H (0.0-7.0) % Baso % (Auto) 0.9 (0.0-1.5) % Neut # (Auto) 4.9 (1.4-5.7) K/uL Lymph # (Auto) 0.8 (0.6-2.4) K/uL Berks # (Auto) 0.6 (0.0-0.8) K/uL Eos # (Auto) 0.6 (0.0-0.7) K/uL Baso # (Auto) 0.1 (0.0-0.1) K/uL Nucleated RBC % 0.0 /100WBC Nucleated RBCs # 0 K/uL Sodium (136-148) mmol/L Potassium (3.5-5.1) mmol/L Chloride (98-107) mmol/L Carbon Dioxide (21.0-32.0) mmol/L BUN (7.0-18.0) mg/dL Creatinine (0.8-1.3) mg/dL Est Cr Clr Drug Dosing mL/min Estimated GFR (MDRD) ml/min Glucose (74-106) mg/dL POC Glucose 102 114 H (60-110) mg/dL Calcium (8.5-10.1) mg/dL 07/17/19 07/17/19 Range/Units 05:13 06:24 WBC (4.0-11.0) K/uL RBC (4.50-5.90) M/uL Hgb (13.0-17.0) g/dL Hct (38.0-50.0) % MCV (80.0-98.0) fL MCH (27.0-32.0) pg MCHC (31.0-37.0) g/dL RDW Std Deviation (28.0-62.0) fl RDW Coeff of Letty (11.0-15.0) % Plt Count (150-400) K/uL MPV (7.40-12.00) fL Neut % (Auto) (48.0-80.0) % Lymph % (Auto) (16.0-40.0) % Berks % (Auto) (0.0-15.0) % Eos % (Auto) (0.0-7.0) % Baso % (Auto) (0.0-1.5) % Neut # (Auto) (1.4-5.7) K/uL Lymph # (Auto) (0.6-2.4) K/uL Berks # (Auto) (0.0-0.8) K/uL Eos # (Auto) (0.0-0.7) K/uL Baso # (Auto) (0.0-0.1) K/uL Nucleated RBC % /100WBC Nucleated RBCs # K/uL Sodium 139 (136-148) mmol/L Potassium 4.0 (3.5-5.1) mmol/L Chloride 104 (98-107) mmol/L Carbon Dioxide 27.1 (21.0-32.0) mmol/L BUN 19 H (7.0-18.0) mg/dL Creatinine 1.8 H (0.8-1.3) mg/dL Est Cr Clr Drug Dosing 37.64 mL/min Estimated GFR (MDRD) 37.4 ml/min Glucose 146 H (74-106) mg/dL POC Glucose 108 (60-110) mg/dL Calcium 8.3 L (8.5-10.1) mg/dL JAZZMINE Results - Last 24 hrs: Microbiology 07/15/19 13:08 Aerobic Blood Culture - Preliminary Blood - Venous - Lab Draw NO GROWTH AFTER 1 DAY Anaerobic Blood Culture - Preliminary NO GROWTH AFTER 1 DAY 07/15/19 12:58 Aerobic Blood Culture - Preliminary Blood - Venous NO GROWTH AFTER 1 DAY Anaerobic Blood Culture - Final Med Orders - Current: Current Medications Acetaminophen (Tylenol) 650 mg PO Q4H PRN PRN Reason: Pain (Mild 1-3)/fever Aspirin (Aspirin) 81 mg PO QPM [facility] Last Admin: 07/16/19 17:19 Dose: 81 mg Atorvastatin Calcium (Lipitor) 20 mg PO DAILY [facility] Last Admin: 07/17/19 09:06 Dose: 20 mg Ferrous Sulfate (Ferrous Sulfate) 325 mg PO QAM [facility] Last Admin: 07/17/19 09:06 Dose: 325 mg Heparin Sodium (Porcine) (Heparin Sodium) 5,000 units SUBCUT Q8H [facility] Last Admin: 07/17/19 04:59 Dose: 5,000 units Cefepime HCl 2 gm/ Premix 50 mls @ 100 mls/hr IV Q12H [facility] Last Admin: 07/17/19 01:27 Dose: 100 mls/hr Linezolid 600 mg/ Premix 300 mls @ 300 mls/hr IV Q12H [facility] Last Admin: 07/17/19 03:46 Dose: 300 mls/hr Insulin Aspart (Novolog) 0 unit SUBCUT TIDAC [facility]; Protocol Last Admin: 07/17/19 07:57 Dose: Not Given Omeprazole (Omeprazole) 20 mg PO BID@0700,1700 [facility] Last Admin: 07/17/19 06:24 Dose: 20 mg Ondansetron HCl (Zofran) 4 mg IVPUSH Q4H PRN PRN Reason: Nausea Sodium Chloride (Saline Flush) 10 ml FLUSH ASDIRECTED PRN PRN Reason: Keep Vein Open Last Admin: 07/15/19 12:31 Dose: 10 ml Sodium Chloride (Saline Flush) 2.5 ml FLUSH ASDIRECTED PRN PRN Reason: Keep Vein Open Last Admin: 07/15/19 12:32 Dose: 2.5 ml Discontinued Medications Sodium Chloride (Normal Saline) 1,000 mls @ 999 mls/hr IV STAT ONE Stop: 07/15/19 12:59 Last Admin: 07/15/19 12:26 Dose: 999 mls/hr Sodium Chloride (Normal Saline) 1,000 mls @ 100 mls/hr IV Q10H [facility] Last Admin: 07/16/19 03:34 Dose: 100 mls/hr Vancomycin HCl (Pharmacy To Dose - Vancomycin) 1 dose .XX ASDIRECTED [facility] - Exam General: Reports: Alert, Oriented, Cooperative, No Acute Distress Lungs: Reports: Clear to Auscultation, Normal Respiratory Effort Cardiovascular: Reports: Regular Rate, Regular Rhythm GI/Abdominal Exam: Normal Bowel Sounds, Soft, Non-Tender, Other (obeses abdomen) Wound/Incisions: Reports: Dressing Dry and Intact, No Drainage, Other (much improvement to wound, xeroform has helped bring moisture to dry scabbing areas, edema is down. ). Denies: Erythema
== END 2019-07-17 12:00 | disposition home health service (06) | DRG 638 ==
LOC: MW.ED 11:21 → MW.MS 13:32
PROVIDERS: ADMIT Student in an Organized Health Care Education/Training Program; ATTEND Student in an Organized Health Care Education/Training Program
DX: E11.628 Type 2 diabetes mellitus with other skin complications (principal); E11.9 Type 2 diabetes mellitus without complications; L03.116 Cellulitis of left lower limb; Z68.42 Body mass index [BMI] 45.0-49.9, adult; E78.5 Hyperlipidemia, unspecified; I10 Essential (primary) hypertension; E66.9 Obesity, unspecified; Z90.01 Acquired absence of eye; H54.7 Unspecified visual loss; E78.00 Pure hypercholesterolemia, unspecified; Z79.82 Long term (current) use of aspirin; Z79.84 Long term (current) use of oral hypoglycemic drugs; Z79.899 Other long term (current) drug therapy; Z85.828 Personal history of other malignant neoplasm of skin; Z98.890 Other specified postprocedural states
CPT/HCPCS: 80053; 83605; 85025; 87040 ×2; 96360; 99285; J7030; 36415; 80048; 82962; 93971-26-LT; 93971-LT; 99283; A9270-GY; J0692; J1644; J2020